=== PATIENT | male | born 1945 | race Caucasian/White ===

== ENCOUNTER 2021-05-07 10:24 | Emergency (ER) | payer MEDICARE, SELFPAY ==
[2021-05-07 10:32] VITALS: BP 134/63; PULSE 86; RESP 20; TEMP 36.8; O2SAT 100
--- NOTE | 2021-05-07 10:39 | ED.URI ---
HPI - URI/Sore Throat General Chief Complaint: Upper Respiratory Infection Stated Complaint: sore throat ccough weak Time Seen by Provider: 05/07/21 10:28 Source: patient and RN notes reviewed History of Present Illness HPI Narrative: Patient is a 75-year-old male who presents the urgent care with complaints of 5-day history of dry cough, sinus pressure and nasal drainage. Patient states that he has chronic sinusitis. Patient denies of any history of sinus surgery. Denies of any exposure to Covid, influenza or strep. Denies of any fevers. States that he has been taking high blood pressure cold and flu medication [id number]. No other acute complaints. No acute distress noted. Patient aware of the plan of care. Some parts of this dictation were generated by voice recognition software and may contain typographical and/or grammatical inaccuracies. Related Data Home Medications Medication Instructions Recorded Confirmed albuterol sulfate 2 puff INHALATION QID PRN 08/29/19 05/07/21 amlodipine 5 mg PO DAILY 08/29/19 05/07/21 bupropion HCl 75 mg PO BID 08/29/19 05/07/21 cholecalciferol (vitamin D3) 2,000 unit PO DAILY 08/29/19 05/07/21 [Vitamin D3] clonazepam 1 mg PO DAILY 08/29/19 05/07/21 cyanocobalamin (vitamin B-12) 1,000 mcg PO DAILY 08/29/19 05/07/21 [Vitamin B-12] docusate sodium [Stool Softener] 250 mg PO HS 08/29/19 05/07/21 finasteride 5 mg PO DAILY 08/29/19 05/07/21 glucosamine-chondroitin [Osteo 2 tablet PO TID 08/29/19 05/07/21 Bi-Flex] multivitamin,[id number] 1 tablet PO DAILY 08/29/19 05/07/21 [Complete Multivitamin] ranolazine 1,000 mg PO Q12H 08/29/19 05/07/21 terazosin 10 mg PO DAILY 08/29/19 05/07/21 Allergies Allergy/AdvReac Type Severity Reaction Status Date / Time No Known Allergies Allergy Verified 05/07/21 10:40 Review of Systems Review of Systems: Narrative: CONSTITUTIONAL: Denies fever, chills, or sweats. EYES: Denies visual changes, redness, or discharge. ENT: Reports of sinus pressure, rhinorrhea, postnasal drainage and mild sore throat CARDIOVASCULAR: Denies chest pain, palpitations, or edema. RESPIRATORY: Reports of dry cough without dyspnea GASTROINTESTINAL: Denies abdominal pain, nausea, vomiting, or diarrhea. GENITOURINARY: Denies dysuria or hematuria. SKIN: Denies rash or itching. MUSCULOSKELETAL: Denies back pain, joint pain, or myalgia. NEUROLOGIC: Denies headache, numbness, or weakness. All other systems reviewed are negative, except as documented in HPI. [facility] Past Medical History Medical History (Updated 05/07/21 @ 11:00 by SHARIFA Tim) Anxiety BPH (benign prostatic hyperplasia) Depression Hypertension Restless leg syndrome Surgical History Surgical History (Updated 08/29/19 @ 09:31 by Destiney Up, SHARIFA, ) H/O lateral meniscus repair of left knee H/O lateral meniscus repair of right knee History of appendectomy Comments At the time of my signature, I reviewed and agree with the nursing past medical, surgical, social, and family history. There is no relevant family history pertinent to the patient complaint. Exam Narrative: Exam Narrative: GENERAL: This is a well-nourished, well-developed patient, in no apparent distress. HEAD: normocephalic, atraumatic. Mild frontal sinus pressure/tenderness EYES: PERRL. Sclera clear/white. Vision is grossly intact. EARS: External ears normal, auditory canals clear and without drainage, TMs normal without perforation. Hearing grossly intact. NOSE: External nose normal with no obvious nasal discharge, nares without redness, no rhinorrhea. THROAT: Mucous membranes moist, posterior pharynx clear. Mild postnasal drainage NECK: Neck supple, non-tender without lymphadenopathy CARDIOVASCULAR: Regular rate and rhythm without murmurs, gallops, or rubs. RESPIRATORY: Clear to auscultation. Breath sounds equal bilaterally. No wheezes, rales, or rhonchi. SKIN: warm, intact with no suspicious lesions or
[2021-05-07 10:41] VITALS: BP 134/63; PULSE 86; RESP 20; TEMP 36.8; O2SAT 100
== END 2021-05-07 11:04 | disposition home or self-care (01) ==
PROVIDERS: Emergency Provider Nurse Practitioner Family; PCP Internal Medicine
DX: J32.9 Chronic sinusitis, unspecified (principal); F41.9 Anxiety disorder, unspecified; N40.0 Benign prostatic hyperplasia without lower urinary tract symptoms; F32.9 Major depressive disorder, single episode, unspecified; I10 Essential (primary) hypertension; G25.81 Restless legs syndrome
CPT/HCPCS: 87081; 87880; 99213; G0463

== ENCOUNTER 2022-01-16 11:59 | Emergency (ER) | payer MEDICARE, SELFPAY ==
[2022-01-16 12:04] VITALS: BP 142/66; PULSE 83; RESP 18; TEMP 36.9; O2SAT 100
--- NOTE | 2022-01-16 12:04 | ED.URI ---
HPI - URI/Sore Throat General Chief Complaint: Upper Respiratory Infection Stated Complaint: sinus drainage cough Time Seen by Provider: 01/16/22 12:04 Source: patient and RN notes reviewed History of Present Illness HPI Narrative: Patient is a 76-year-old male who presents the urgent care with complaints of sinus drainage and cough. Patient states is been ongoing since Tuesday and he has been using Coricidin HP B. Patient states he is on a low-dose 3 mg steroid daily. Patient does have history of pneumonia and bronchitis. Denies of any shortness of breath or chest pain. Denies of any fever, nausea or vomiting. Denies of any ill contacts. No other acute complaints. No acute distress noted. Patient read the plan of care. Some parts of this dictation were generated by voice recognition software and may contain typographical and/or grammatical inaccuracies. Related Data Home Medications Medication Instructions Recorded Confirmed albuterol sulfate 2 puff INHALATION QID PRN 08/29/19 01/16/22 amlodipine 5 mg PO DAILY 08/29/19 01/16/22 bupropion HCl 75 mg PO BID 08/29/19 01/16/22 cholecalciferol (vitamin D3) 2,000 unit PO DAILY 08/29/19 01/16/22 [Vitamin D3] clonazepam 0.5 mg PO DAILY 08/29/19 01/16/22 cyanocobalamin (vitamin B-12) 1,000 mcg PO DAILY 08/29/19 01/16/22 [Vitamin B-12] docusate sodium [Stool Softener] 250 mg PO HS 08/29/19 01/16/22 finasteride 5 mg PO DAILY 08/29/19 01/16/22 ranolazine 1,000 mg PO DAILY 08/29/19 01/16/22 terazosin 10 mg PO DAILY 08/29/19 01/16/22 prednisone 2 mg PO DAILY 01/16/22 01/16/22 Allergies Allergy/AdvReac Type Severity Reaction Status Date / Time No Known Allergies Allergy Verified 01/16/22 12:21 Review of Systems Review of Systems: CONSTITUTIONAL: Denies fever, chills, or sweats. EYES: Denies visual changes, redness, or discharge. ENT: Reports of postnasal drainage and sinus congestion CARDIOVASCULAR: Denies chest pain, palpitations, or edema. RESPIRATORY: Reports of cough without wheezing or dyspnea GASTROINTESTINAL: Denies abdominal pain, nausea, vomiting, or diarrhea. GENITOURINARY: Denies dysuria or hematuria. SKIN: Denies rash or itching. MUSCULOSKELETAL: Denies back pain, joint pain, or myalgia. NEUROLOGIC: Denies headache, numbness, or weakness. All other systems reviewed are negative, except as documented in HPI. [facility] Past Medical History Medical History (Updated 05/08/21 @ 00:00 by Yohan Espitia) Anxiety BPH (benign prostatic hyperplasia) Depression Hypertension Restless leg syndrome Surgical History Surgical History (Updated 08/29/19 @ 09:31 by Destiney Up, [facility], ) H/O lateral meniscus repair of left knee H/O lateral meniscus repair of right knee History of appendectomy Comments At the time of my signature, I reviewed and agree with the nursing past medical, surgical, social, and family history. There is no relevant family history pertinent to the patient complaint. Exam Narrative: GENERAL: This is a well-nourished, well-developed patient, in no apparent distress. HEAD: normocephalic, atraumatic. EYES: PERRL. Sclera clear/white. Vision is grossly intact. EARS: External ears normal, auditory canals clear and without drainage, cerumen noted bilaterally without impaction. TMs normal without perforation. Hearing grossly intact. NOSE: External nose normal with no obvious nasal discharge, nares without redness, no rhinorrhea. THROAT: Mucous membranes moist, posterior pharynx clear. Moderate postnasal drainage NECK: Neck supple, non-tender without lymphadenopathy CARDIOVASCULAR: Regular rate and rhythm RESPIRATORY: Clear to auscultation. Breath sounds equal bilaterally. No wheezes, rales, or rhonchi. SKIN: warm, intact with no suspicious lesions or rash, good texture and turgor. NEURO: awake, alert, and oriented to person, place and time. There were no obvious focal neurologic abnormalities. EXTREMITIES: No clubbing, cyanosis, or edema.
== END 2022-01-16 12:30 | disposition home or self-care (01) ==
PROVIDERS: Emergency Provider Nurse Practitioner Family; PCP Internal Medicine
DX: J32.9 Chronic sinusitis, unspecified (principal); N40.0 Benign prostatic hyperplasia without lower urinary tract symptoms; I10 Essential (primary) hypertension; G25.81 Restless legs syndrome; F41.9 Anxiety disorder, unspecified
CPT/HCPCS: 99213; G0463

== ENCOUNTER 2022-04-26 10:54 | Emergency (ER) | payer MEDICARE, SELFPAY ==
--- NOTE | 2022-04-26 10:57 | ED.URI ---
HPI - URI/Sore Throat General Chief Complaint: Upper Respiratory Infection Stated Complaint: sinus infection Time Seen by Provider: 04/26/22 10:57 Source: patient and RN notes reviewed History of Present Illness HPI Narrative: Patient is a 76-year-old male who presents the urgent care with complaints of sinus pressure, drainage, sneezing and slight nonproductive cough. Patient states that he is having a lung biopsy on Tuesday and wants to make sure that he is not ill. States that on Tuesday he sat out at his [employer] game and was affected by all the dust. Patient has been taking Flonase and had one 15 mg prednisone. Denies any fevers. Denies any contact with illness. Patient does have a COVID test scheduled. No other acute complaints. No acute distress noted. Patient aware of the plan of care. Some parts of this dictation were generated by voice recognition software and may contain typographical and/or grammatical inaccuracies. Related Data Home Medications Medication Instructions Recorded Confirmed albuterol sulfate 90 mcg/actuation 2 puff inhalation QID PRN 08/29/19 01/16/22 aerosol inhaler Shortness Of Breath Or Wheezing amlodipine 5 mg tablet 5 mg PO DAILY 08/29/19 04/26/22 bupropion HCl 75 mg tablet 75 mg PO BID 08/29/19 01/16/22 cholecalciferol (vitamin D3) 50 2,000 unit PO DAILY 08/29/19 01/16/22 mcg (2,000 unit) tablet (Vitamin D3) clonazepam 1 mg tablet 0.5 mg PO DAILY 08/29/19 01/16/22 cyanocobalamin (vitamin B-12) 1,000 mcg PO DAILY 08/29/19 01/16/22 1,000 mcg tablet (Vitamin B-12) docusate sodium 250 mg capsule 250 mg PO HS 08/29/19 01/16/22 (Stool Softener) finasteride 5 mg tablet 5 mg PO DAILY 08/29/19 04/26/22 ranolazine 1,000 mg 1,000 mg PO DAILY 08/29/19 01/16/22 tablet,extended release,12 hr terazosin 10 mg capsule 10 mg PO DAILY 08/29/19 04/26/22 prednisone 2 mg tablet,delayed 2 mg PO DAILY 01/16/22 01/16/22 release Allergies Allergy/AdvReac Type Severity Reaction Status Date / Time No Known Allergies Allergy Verified 01/16/22 12:21 Review of Systems Review of Systems: CONSTITUTIONAL: Denies fever, chills, or sweats. EYES: Denies visual changes, redness, or discharge. ENT: Reports of congestion, postnasal drainage, runny nose, sneezing and sinus pressure CARDIOVASCULAR: Denies chest pain, palpitations, or edema. RESPIRATORY: Denies cough or dyspnea. GASTROINTESTINAL: Denies abdominal pain, nausea, vomiting, or diarrhea. GENITOURINARY: Denies dysuria or hematuria. SKIN: Denies rash or itching. MUSCULOSKELETAL: Denies back pain, joint pain, or myalgia. NEUROLOGIC: Denies headache, numbness, or weakness. All other systems reviewed are negative, except as documented in HPI. [facility] Past Medical History Medical History (Updated 04/26/22 @ 11:17 by Destiney Porras, [facility]) Anxiety BPH (benign prostatic hyperplasia) Depression Hypertension Restless leg syndrome Surgical History Surgical History (Updated 08/29/19 @ 09:31 by Destiney Up, [facility], ) H/O lateral meniscus repair of left knee H/O lateral meniscus repair of right knee History of appendectomy Comments At the time of my signature, I reviewed and agree with the nursing past medical, surgical, social, and family history. There is no relevant family history pertinent to the patient complaint. Exam Narrative: GENERAL: This is a well-nourished, well-developed patient, in no apparent distress. HEAD: normocephalic, atraumatic. Frontal sinus tenderness EYES: PERRL. Sclera clear/white. Vision is grossly intact. EARS: External ears normal, auditory canals clear and without drainage, TMs normal without perforation. Hearing grossly intact. NOSE: External nose normal with no obvious nasal discharge, mild bilateral erythemic nares with clear to yellow rhinorrhea THROAT: Mucous membranes moist, posterior pharynx clear. Moderate postnasal drainage NECK: Neck supple, non-tender without lymphadenopathy, masses or
[2022-04-26 10:58] VITALS: BP 130/79; PULSE 81; RESP 20; TEMP 36.7; O2SAT 100
== END 2022-04-26 11:18 | disposition home or self-care (01) ==
PROVIDERS: Emergency Provider Nurse Practitioner Family; PCP Internal Medicine
DX: J32.9 Chronic sinusitis, unspecified (principal); I10 Essential (primary) hypertension; N40.0 Benign prostatic hyperplasia without lower urinary tract symptoms; G25.81 Restless legs syndrome; F41.9 Anxiety disorder, unspecified
CPT/HCPCS: 99213; G0463

== ENCOUNTER 2022-12-01 15:12 | Outpatient (CLI) | payer MEDICARE, SELFPAY ==
--- NOTE | ~2022-12-01 | US_ITS ---
EXAMINATION: US scrotum doppler DATE: 12/01/2022 16:23 INDICATION: Epididymitis. TECHNIQUE: Grayscale and Doppler ultrasound images of the testes were obtained. COMPARISON: CT abdomen and pelvis 12/01/2022 FINDINGS: The right testis measures 3.8 x 1.9 x 2.3 cm. The left testis measures . There is a [address] at the periphery of right testis. There is normal vascular flow to both testes. The right epididym is is normal with normal vascular flow. The left epididymis demonstrate cysts measuring up to 4 mm. T here are small bilateral hydroceles. There is a left-sided varicocele. IMPRESSION: 1. Small bilateral hydroceles. 2. Left-sided varicocele. Reviewed, dictated and finalized at location A. C[facility] TRA[facility]ER
--- NOTE | ~2022-12-01 | CT_ITS ---
EXAMINATION: CT abdomen pelvis w con DATE: 12/01/2022 15:58 INDICATION: Groin swelling. Melanoma. TECHNIQUE: Computed tomography (CT) of the abdomen and pelvis was performed with 100 mL Omnipaque 350 intravenous contrast. Automated exposure control and iterative reconstruction technique were employe d. The dose-length product was 949.80 mGy-cm. COMPARISON: None. FINDINGS: The visualized portions of the lung bases demonstrate mild atelectasis. There is an 8 mm no dule in left lower lobe. There is a trace right pleural effusion. The heart size is normal. There are coronary artery calcifications. No pericardial effusion. There are multiple low-attenuation lesions in the liver measuring up to 5 mm that are too small to characterize, most likely cysts. There are mu ltiple low-attenuation lesions in the spleen measuring up to 15 mm. There is wall thickening of the f undus of the gallbladder, consistent with adenomyomatosis. The pancreas, adrenal glands, and left kid hannah are normal. There is a 9.9 cm cyst with thin septations in right kidney. The inferior vena cava i s duplicated. There is a left inguinal hernia containing fat. There is diverticulosis of the colon wi thout evidence of diverticulitis. The appendix is not visualized. There are no pathologically enlarge d lymph nodes. There is no free intraperitoneal fluid. There is severe lumbar spondylosis. There is m ild chronic anterior wedging of multiple vertebral bodies. IMPRESSION: 1. Left inguinal hernia containing fat. 2. 8 mm pulmonary nodule suspicious for metastatic disease or primary bronchogenic carcinoma. 3. Low-attenuation lesions in the spleen, most likely granulomatous disease. Metastatic disease canno t be excluded. Reviewed, dictated and finalized at location A. KEEPER IMPRESSION: 1. Left inguinal hernia containing fat. 2. 8 mm pulmonary nodule suspicious for metastatic disease or primary bronchoge asiya carcinoma. 3. Low-attenuation lesions in the spleen, most likely granulomatous disease. Me tastatic disease cannot be excluded.
[2022-12-01 15:49] LABS: Estimated Glomerular Filt Rate > 60
== END 2022-12-01 15:13 | disposition home or self-care (01) ==
PROVIDERS: PCP Internal Medicine; Visit Provider Urology
DX: R19.09 Other intra-abdominal and pelvic swelling, mass and lump (principal); N45.1 Epididymitis; N43.3 Hydrocele, unspecified; I86.1 Scrotal varices; K40.90 Unilateral inguinal hernia, without obstruction or gangrene, not specified as recurrent; R91.1 Solitary pulmonary nodule
CPT/HCPCS: 74177; 76870; 93976; Q9967

== ENCOUNTER 2023-01-18 10:52 | Emergency (ER) | payer MEDICARE, SELFPAY ==
[2023-01-18 11:04] VITALS: BP 126/63; PULSE 75; RESP 20; TEMP 36.7; O2SAT 100
--- NOTE | 2023-01-18 11:16 | ED.URI ---
HPI - URI/Sore Throat General Chief Complaint: Upper Respiratory Infection Stated Complaint: cold/flu Time Seen by Provider: 01/18/23 11:17 Source: patient, RN notes reviewed and old records reviewed Mode of arrival: ambulatory Limitations: no limitations History of Present Illness HPI Narrative: 77 year old male who presents to [facility] care with complaints of fatigue,nasal drainage, cough which is productive,' rattly chest' for the past 2 days with no fevers noted. Patient is presently on medications for TB and also rheumatoid arthritis and is immunosuppressed on daily prednisone. Patient does also have stage 4 melanoma. Patient reports that daughter had COVID 3 weeks ago, he states that he has had COVID vaccinations and boosters and flu shot this season. patient has taken some Mucinex for his symptoms. MD elicited complaint: cough and sore throat Pertinent past history: immunosuppression Onset (ago): day(s) (2) Treatments prior to arrival: other (Mucinex) Related Data Home Medications Medication Instructions Recorded Confirmed amlodipine 5 mg tablet 5 mg PO DIRECTED 01/18/23 01/18/23 bupropion HCl 75 mg tablet 75 mg PO DIRECTED 01/18/23 01/18/23 clonazepam 0.5 mg tablet 0.5 mg PO DIRECTED 01/18/23 01/18/23 folic acid 1 mg tablet 1 mg PO DIRECTED 01/18/23 01/18/23 hydroxychloroquine 200 mg tablet 200 mg PO DIRECTED 01/18/23 01/18/23 isoniazid 300 mg tablet 300 mg PO DIRECTED 01/18/23 01/18/23 prednisone 5 mg tablet 5 mg PO DIRECTED 01/18/23 01/18/23 valacyclovir 500 mg tablet 500 mg PO DIRECTED 01/18/23 01/18/23 Allergies Allergy/AdvReac Type Severity Reaction Status Date / Time No Known Allergies Allergy Verified 01/18/23 11:17 Review of Systems Review of Systems: CONSTITUTIONAL: Denies malaise, chills, sweats, or fever., reports fatigue EYES: Denies visual changes, redness, or discharge. ENT: Reports rhinorrhea, congestion, no sinus pain,no otalgia or sore throat. CARDIOVASCULAR: Denies chest pain, palpitations, or edema. RESPIRATORY: Reports cough.? Denies dyspnea.states cough productive GASTROINTESTINAL: Denies abdominal pain, nausea, vomiting, diarrhea SKIN: Denies rash or itching. MUSCULOSKELETAL: Denies myalgia. NEUROLOGIC: Denies headache. All systems reviewed & are unremarkable except as noted in HPI and below PMFSH Past Medical History Medical History (Updated 01/19/23 @ 10:41 by Mi Zambrano NP) Anxiety BPH (benign prostatic hyperplasia) Depression Hypertension Malignant melanoma, stage IV M1a Restless leg syndrome Rheumatoid arthritis Tuberculosis Surgical History Surgical History (Updated 01/19/23 @ 10:41 by Mi Zambrano NP) H/O lateral meniscus repair of left knee H/O lateral meniscus repair of right knee History of appendectomy History of lung biopsy Social History Social History (Updated 01/19/23 @ 10:43 by Mi Zambrano NP) Smoking packs per day: 1 Smoking cigarettes per day: 20.0 Years smoked: 20 Smoking pack-years: 20.00 Smoking status: Former smoker Additional smoking assessment comments: Quit over 30 years ago Alcohol intake: current Alcohol use details: rare social Substance use type: does not use Living arrangements: with family Gender identity (if verbalized by the patient): Male Comments At time of signature, agree with nursing past medical, surgical, social and family history. There is no relevant family history pertinent to the presenting complaint Exam Narrative: GENERAL: Well-appearing, well-nourished, and in no acute distress. HEAD: Normocephalic EYES: PERRLA, conjunctivae clear ENT: Nares clear, turbinates edematous and erythematous, clear discharge. Mucous membranes moist. TM pearly barrera with dull light reflex bilaterally; no tragal tenderness. Oropharynx erythematous without lesions. Tonsils not enlarged and without exudate, no drooling, no hoarseness, no trismus, uvula midline.so
== END 2023-01-18 12:07 | disposition home or self-care (01) ==
PROVIDERS: Emergency Provider Registered Nurse; PCP Internal Medicine
DX: J06.9 Acute upper respiratory infection, unspecified (principal); Z20.822 Contact with and (suspected) exposure to COVID-19; Z87.891 Personal history of nicotine dependence; N40.0 Benign prostatic hyperplasia without lower urinary tract symptoms; I10 Essential (primary) hypertension; G25.81 Restless legs syndrome; M06.9 Rheumatoid arthritis, unspecified; F41.9 Anxiety disorder, unspecified; F32.A Depression, unspecified; C43.9 Malignant melanoma of skin, unspecified
CPT/HCPCS: 87426; 99213; C9803; G0463

== ENCOUNTER 2023-10-03 09:55 | Emergency (ER) | payer MEDICARE, SELFPAY ==
[2023-10-03 10:18] VITALS: BP 148/63; PULSE 73; RESP 16; TEMP 37.2; O2SAT 99
--- NOTE | 2023-10-03 10:45 | ED.GENADULT ---
HPI - General Adult General Chief complaint: Upper Respiratory Infection Stated complaint: Sinus Infection Source: patient, RN notes reviewed and old records reviewed Mode of arrival: ambulatory Limitations: no limitations History of Present Illness HPI narrative: 77-year-old male patient presents to [facility] Care with complaint of sinus congestion, sinus pain, productive cough that started 2 weeks ago. Patient taking [id number] medications with no relief. Patient states phlegm is brown/green color. Patient denies chest pain, weakness, dizziness, vomiting, shortness of breath. MD complaint: cough,congestion Onset (ago): week(s) (2) Related Data Home Medications Medication Instructions Recorded Confirmed amlodipine 5 mg tablet 5 mg PO DIRECTED 01/18/23 01/18/23 bupropion HCl 75 mg tablet 75 mg PO DIRECTED 01/18/23 01/18/23 clonazepam 0.5 mg tablet 0.5 mg PO DIRECTED 01/18/23 01/18/23 folic acid 1 mg tablet 1 mg PO DIRECTED 01/18/23 01/18/23 hydroxychloroquine 200 mg tablet 200 mg PO DIRECTED 01/18/23 01/18/23 isoniazid 300 mg tablet 300 mg PO DIRECTED 01/18/23 01/18/23 prednisone 5 mg tablet 4 mg PO DIRECTED 01/18/23 01/18/23 valacyclovir 500 mg tablet 500 mg PO DIRECTED 01/18/23 01/18/23 finasteride 5 mg tablet mg 10/03/23 methotrexate sodium 2.5 mg tablet mg 10/03/23 pramipexole 0.125 mg tablet mg 10/03/23 pyridoxine (vitamin B6) 50 mg mg 10/03/23 tablet ranolazine 1,000 mg mg PO 10/03/23 tablet,extended release,12 hr terazosin 10 mg capsule mg 10/03/23 Allergies Allergy/AdvReac Type Severity Reaction Status Date / Time No Known Allergies Allergy Verified 10/03/23 10:15 Review of Systems Constitutional: Constitutional: Reports no additional constitutional complaints, Denies body ache(s), Denies chills, Denies fatigue, Denies fever(s) and Denies headache(s) Eyes: Eyes: Reports no additional eye complaints and Denies blurry vision ENT: Denies vertigo, Denies dizziness, Denies ear discharge, Denies otalgia, Denies facial pain, Reports headache(s), Reports nasal congestion, Reports nasal discharge, Reports sinus pain, Reports sinus pressure and Denies sore throat Cardiovascular: Cardiovascular: Reports no additional cardiovascular complaints, Denies chest pain, Denies chest pain at rest, Denies rapid heart rate and Denies dyspnea Respiratory: Respiratory: Reports as per HPI, Reports chest congestion, Reports cough, Denies pain on inspiration, Denies pain with cough and Denies dyspnea Gastrointestinal: Gastrointestinal: Denies abdominal pain, Denies diarrhea, Denies nausea and Denies vomiting Integumentary/Breasts: Skin/Breast: Denies rash Neurologic: Reports system reviewed and no additional complaints, except as documented, Denies vertigo, Denies dizziness and Denies headache(s) Endocrine: Endocrine: Denies fatigue PMFSH Past Medical History Medical History Anxiety BPH (benign prostatic hyperplasia) Depression Hypertension Malignant melanoma, stage IV M1a Restless leg syndrome Rheumatoid arthritis Tuberculosis Surgical History Surgical History H/O lateral meniscus repair of left knee H/O lateral meniscus repair of right knee History of appendectomy History of lung biopsy Social History Social History Smoking packs per day: 1 Smoking cigarettes per day: 20.0 Years smoked: 20 Smoking pack-years: 20.00 Smoking status: Former smoker Additional smoking assessment comments: Quit over 30 years ago Alcohol intake: current Alcohol use details: rare social Substance use type: does not use Living arrangements: with family Gender identity (if verbalized by the patient): Male Comments At the time of my signature, I reviewed and agree with the nursing past medical, surgical, social, an
== END 2023-10-03 10:50 | disposition home or self-care (01) ==
PROVIDERS: Emergency Provider Registered Nurse; PCP Internal Medicine
DX: J32.9 Chronic sinusitis, unspecified (principal); I10 Essential (primary) hypertension; Z87.891 Personal history of nicotine dependence
CPT/HCPCS: 99213; G0463

== ENCOUNTER 2024-03-16 12:09 | Outpatient (CLI) | payer MEDICARE, SELFPAY ==
--- NOTE | 2024-03-16 12:35 | ECG_ITS ---
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 Measurements Intervals [place] Rate: 74 P: 62 TX: 237 QRS: -14 QRSD: 129 T: 44 QT: 416 QTc: 464 Interpretive Statements SINUS RHYTHM WITH FIRST DEGREE AV BLOCK INTRAVENTRICULAR CONDUCTION DELAY LEFT VENTRICULAR HYPERTROPHY POOR R WAVE PROGRESSION BASELINE ARTIFACT- I, II, III, AVR, AVL, AVF, V1-V6 ABNORMAL ECG No previous ECG available for comparison Electronically Signed On 03-16-2024 14:46:48 CDT by Phong Ortega D.O.
== END 2024-03-16 12:10 | disposition home or self-care (01) ==
LOC: ANHSURGERY 12:14
PROVIDERS: PCP Internal Medicine; Visit Provider Urology
DX: Z01.818 Encounter for other preprocedural examination (principal); I10 Essential (primary) hypertension; R94.31 Abnormal electrocardiogram [ECG] [EKG]
CPT/HCPCS: 93005

== ENCOUNTER 2024-03-22 00:30 | Day surgery (SDC) | payer MEDICARE, SELFPAY ==
[2024-03-13 12:19] VITALS: BMI 28.1
--- NOTE | 2024-03-13 12:50 | PC.NURSE ---
Report to the Outpatient Waiting Room, entrance under the green pavilion located off [facility], at time __10:00am on date ___03/22/24____. Planned Procedure Time: __12:00pm . Time changes happen often and if your time is changed the preop area will call you the afternoon before. - You and your visitor will be asked to self-screen and do not enter if you have any COVID symptoms. - A mask is optional within the hospital at this time. Patients may have clear liquids (water, carbonated beverages, clear teas, apple juice) until 3 hours prior to surgery with a maximum of 20 ounces. - No food from midnight until time of surgery. Take the following medications with a SIP of water the morning of surgery: __AMLODIPINE, BUPROPION, PREDNISONE, RANOLAZINE DO NOT STOP ANY OF YOUR OTHER PRESCRIPTION MEDICATIONS PRIOR TO SURGERY ?EXCEPT THE FOLLOWING Medications to discontinue per physician ____HOLD ALL VITAMINS/SUPPLEMENTS 3 DAYS PRE-OP PER ANESTHESIA Date to take last dose____03/18/24 Please no make-up, nail mauritian, hairspray, perfume, deodorant, or body powder the day of surgery. No jewelry (including any body piercings) or valuables the day of surgery, leave them at home. Please take a shower or bath the night before, or the morning of, surgery with an antibacterial soap. Wear comfortable, loose fitting clothing. - Jewelry must be removed prior to entering the operating room. Rings and piercings that are not removed may be cut off. - The hospital will not accept responsibility for valuables. - Please leave all valuables, including medications, at home the day of surgery. If you are going home after surgery, a licensed pile driver must drive you home. - NO public transportation without another adult if you receive anesthesia. - We recommend that an adult stay with you for 24 hours following discharge. - We also recommend that you do not drive, make important decision, drink alcoholic beverages, or take any drugs that were not prescribed by your health care provider for at least 24 hours after your discharge time. Follow any additional instructions given to you from your surgeon. If you or anyone in your household have experienced Covid symptoms in the past week, please notify your surgeon or the nurse liaison at the phone number below for possible testing. Telephone instructions given to PATIENT & WIFE and asked if any additional questions and then verbalized understanding. Patient advised to call surgeon office or pre surgery nurse liaison [phone] if any additional questions.
--- NOTE | 2024-03-19 07:52 | PM.IMHP ---
H&P: HPI History of Present Illness Date/Time: 03/19/24 07:52 Chief Complaint: Prostate enlargement Narrative: 78-year-old gentleman who is a longstanding patient of ours with bladder outlet obstructive voiding symptoms dating back 15-20 years. After initial response to therapy for BPH he has now become somewhat refractory to both tamsulosin and finasteride and combination. He is contemplated minimally invasive procedure such as Urolift and laser ablation but elects, instead for a TURP. He is aware the risks including, but not limited to, adverse cardiopulmonary events, hematuria, need for additional procedures. Review of Systems Cardiovascular: Cardiovascular: Denies chest pain, Denies lightheadedness, Denies palpitations and Denies dyspnea Respiratory: Respiratory: Denies dyspnea Gastrointestinal: Gastrointestinal: Denies diarrhea, Denies nausea and Denies vomiting Genitourinary: Genitourinary: Denies hematuria and Denies dysuria Endocrine: Endocrine: Denies palpitations PMFSH Past Medical History Medical History Anxiety BPH (benign prostatic hyperplasia) Depression Hypertension Malignant melanoma, stage IV M1a Restless leg syndrome Rheumatoid arthritis Tuberculosis Surgical History Surgical History H/O lateral meniscus repair of left knee H/O lateral meniscus repair of right knee History of appendectomy History of lung biopsy Social History Social History Smoking packs per day: 1.5 Smoking cigarettes per day: 30.0 Years smoked: 24 Smoking pack-years: 36.00 Smoking status: Former smoker Tobacco type: cigarettes Smoking end date: 04/16/88 Additional smoking assessment comments: Quit over 30 years ago Alcohol intake: current Drinks per week: 3 Alcohol use details: rare social Substance use type: does not use Living arrangements: with family Additional living arrangements comments: Gender identity (if verbalized by the patient): Male Spiritual care concerns: No Meds Home Medications and Allergies Home Medications Medication Instructions Recorded Confirmed Type amlodipine 5 mg tablet 5 mg PO QAM 01/18/23 03/13/24 History bupropion HCl 75 mg tablet 75 mg PO BID 01/18/23 03/13/24 History clonazepam 0.5 mg tablet 0.5 mg PO HS 01/18/23 03/13/24 History folic acid 1 mg tablet 1 mg PO DIRECTED 01/18/23 03/13/24 History hydroxychloroquine 200 mg tablet 200 mg PO DIRECTED 01/18/23 03/13/24 History finasteride 5 mg tablet 5 mg PO QAM 10/03/23 03/13/24 History methotrexate sodium 2.5 mg tablet 20 mg PO WEEKLY 10/03/23 03/13/24 History ranolazine 1,000 mg 1,000 mg PO QAM 10/03/23 03/13/24 History tablet,extended release,12 hr terazosin 10 mg capsule 10 mg PO HS 10/03/23 03/13/24 History acetaminophen 500 mg capsule 1,000 mg PO QID PRN Pain 03/13/24 03/13/24 History calcium carbonate 600 mg-vitamin 1 tablet PO DAILY 03/13/24 03/13/24 History D3 5 mcg (200 unit) tablet cetirizine 10 mg capsule (Zyrtec) 10 mg PO DAILY 03/13/24 03/13/24 History cholecalciferol (vitamin D3) 25 25 mcg PO DAILY 03/13/24 03/13/24 History mcg (1,000 unit) tablet ibuprofen 200 mg capsule 400 mg PO Q6H PRN Pain 03/13/24 03/13/24 History multivitamin 1 tablet PO DAILY 03/13/24 03/13/24 History pramipexole 0.25 mg tablet 0.25 mg PO HS 03/13/24 03/13/24 History prednisone 1 mg tablet 4 mg PO DAILY 03/13/24 03/13/24 History Allergies Allergy/AdvReac Type Severity Reaction Status Date / Time No Known Allergies Allergy Verified 03/13/24 09:08 Exam Const: General: no acute distress Resp: Effort & Inspection: normal respiratory effort GI: Inspection: non-distended GI Palp: No abdominal tenderness and No Guarding due to palpation present (GI) Auscultation: normal bowel sounds Assessment and Plan Assessment
[2024-03-22] VITALS (13 sets, daily range): BP systolic 144–178; BP diastolic 66–81; PULSE 60–81; RESP 12–20; TEMP 36–37.1; O2SAT 98–100; BMI 26.6
--- NOTE | 2024-03-22 06:11 | WPDHPUPDATE1 ---
History and Physical Update Update Date/Time: 03/22/24 06:11 History and Physical has been reviewed, including an updated exam of the patient. There are NO changes in the patient's condition. Risks, benefits, and alternatives have been discussed and questions answered. Patient agrees to proceed with procedure.
--- NOTE | 2024-03-22 10:05 | WPDANESEPPF ---
Anes - Initial Pre Proc Eval Procedure: Operation Date: 03/22/24 11:00 Proposed Procedures p Trans Urethral Resection Prostate - Timmy Sheldon MD Date/Time: 03/22/24 10:05 Surgeon: Timmy Sheldon MD Pre Op Diagnosis: BPH Patient Data Age: 78 Gender: M Height: 1.93 m Weight: 99.2 kg Last Vital Signs Temp 36.7 C 03/22/24 09:44 Pulse 71 03/22/24 09:44 Resp 16 03/22/24 09:44 BP 164/73 H 03/22/24 09:44 Pulse Ox 99 03/22/24 09:44 Allergies Allergy/AdvReac Type Severity Reaction Status Date / Time No Known Allergies Allergy Verified 03/22/24 09:36 Home Medications Medication Instructions Recorded Confirmed Type amlodipine 5 mg tablet 5 mg PO QAM 01/18/23 03/13/24 History bupropion HCl 75 mg tablet 75 mg PO BID 01/18/23 03/13/24 History clonazepam 0.5 mg tablet 0.5 mg PO HS 01/18/23 03/13/24 History folic acid 1 mg tablet 1 mg PO DIRECTED 01/18/23 03/13/24 History hydroxychloroquine 200 mg tablet 200 mg PO DIRECTED 01/18/23 03/13/24 History finasteride 5 mg tablet 5 mg PO QAM 10/03/23 03/13/24 History methotrexate sodium 2.5 mg tablet 20 mg PO WEEKLY 10/03/23 03/13/24 History ranolazine 1,000 mg 1,000 mg PO QAM 10/03/23 03/13/24 History tablet,extended release,12 hr terazosin 10 mg capsule 10 mg PO HS 10/03/23 03/13/24 History acetaminophen 500 mg capsule 1,000 mg PO QID PRN Pain 03/13/24 03/13/24 History calcium carbonate 600 mg-vitamin 1 tablet PO DAILY 03/13/24 03/13/24 History D3 5 mcg (200 unit) tablet cetirizine 10 mg capsule (Zyrtec) 10 mg PO DAILY 03/13/24 03/13/24 History cholecalciferol (vitamin D3) 25 25 mcg PO DAILY 03/13/24 03/13/24 History mcg (1,000 unit) tablet ibuprofen 200 mg capsule 400 mg PO Q6H PRN Pain 03/13/24 03/13/24 History multivitamin 1 tablet PO DAILY 03/13/24 03/22/24 History pramipexole 0.25 mg tablet 0.25 mg PO HS 03/13/24 03/13/24 History prednisone 1 mg tablet 4 mg PO DAILY 03/13/24 03/13/24 History Patient hx anesthesia problems: none Family hx anesthesia problems: none Results Review: All pre-operative results and documents have been reviewed as part of the pre-operative evaluation. [facility] Past Medical History Medical History Anxiety BPH (benign prostatic hyperplasia) Depression Hypertension Malignant melanoma, stage IV M1a Restless leg syndrome Rheumatoid arthritis Tuberculosis Surgical History Surgical History H/O lateral meniscus repair of left knee H/O lateral meniscus repair of right knee History of appendectomy History of lung biopsy Social History Social History Smoking packs per day: 1.5 Smoking cigarettes per day: 30.0 Years smoked: 24 Smoking pack-years: 36.00 Smoking status: Former smoker Tobacco type: cigarettes Smoking end date: 04/16/88 Additional smoking assessment comments: Quit over 30 years ago Alcohol intake: current Drinks per week: 3 Alcohol use details: rare social Substance use type: does not use Living arrangements: with family Additional living arrangements comments: Gender identity (if verbalized by the patient): Male Spiritual care concerns: No Anes - Eval Final PreProcedure Day of Procedure 03/22/24 10:05 Patient weight: overweight Heart: regular rate and rhythm Lungs: clear to auscultation Airway: Mallampati scale class II Neurological: alert and oriented Last oral intake: >/= 8 hours ASA classification: III Emergent: no Anesthetic plan: proceed Anesthesia type and monitoring: general LMA and standard monitoring Results Review: All pre-operative results and documents have been reviewed as part of the pre-operative evaluation. Informed Consent: The patient's anesthetic plan and its attendant risks and benefits were discussed with the patient/family/POA. Questions were solici
[2024-03-22] MEDS: LACTATED RINGERS 1,000 ML 30 ML IV CONT ×2 (10:26→11:28)
[2024-03-22] MEDS: ceFAZolin 2 GM/D5W 50 ML 2 GM/50 ML BAG IVPB (10:29)
--- NOTE | 2024-03-22 11:26 | W.PM.PROC2 ---
Procedure Note - Detailed Date of Procedure 03/22/24 Pre-op Diagnosis BPH Post-op Diagnosis Same Procedure Performed TURP Surgeon Timmy Sheldon MD Anesthesia General Description of Procedure The patient was brought to the operative suite where he is prepped and draped in routine sterile fashion while in the dorsal lithotomy position after the uneventful induction of a general LMA anesthetic. A 27 [place] resectoscope sheath was placed into his bladder. He had no urethral strictures. The patient had trilobar hyperplasia with a small median lobe. The bladder itself was endoscopically normal, showing no mucosal hyperemia, intravesical neoplasm or foreign bodies. There was a single, orthotopic ureteral orifice bilaterally. These orifices were identified and preserved throughout the remainder of the procedure. Attention was first turned to resection of the median lobe. This resection was undertaken from the bladder neck to the verumontanum and carried out until the transverse fibers of the bladder neck were identified. The left lateral lobe was then resected starting at the 6 o'clock position, working counter clockwise to the 12 o'clock position. Again, resection was carried out from the bladder neck to the verumontanum until the capsular fibers of the prostate were identified. The right lateral lobe was resected in a similar fashion starting at the 6 o'clock position working clockwise to the 12 o'clock position and carried out until the capsular fibers of the prostate were identified. Apical tissue was then circumferentially resected. All chips were evacuated from the bladder using an [employer] evacuator. Hemostasis was obtained with electric cautery. The ureteral orifices were again inspected and found to be without injury. Estimated blood loss throughout this procedure was 50cc. The patient was taken to recovery room having tolerated this well. Drains Yes Packing No Pathology Yes Complications No immediate complications
[2024-03-22] MEDS: fentaNYL CITRATE INJ (*CRX) 100 MCG/2 ML VIAL 25 MCG IV PUSH ×2 (12:03→12:28)
--- NOTE | 2024-03-22 12:45 | ADMGEN ---
This patient, Nicolas Dye, was admitted to [facility] Surg Room 311-01. Patient/family oriented to hospital policies and general routines including ID bracelet, bed and alarms, visiting hours, pain management, procedures, bathroom and other care routines, personal items, smoking policy, room service/diet, and visiting hours. Information on how to activate the Rapid Response Team has been discussed. Patient/Family are encouraged to report perceived risks to care and to ask questions if they do not understand what they are told or what they should do.
[2024-03-22] MEDS: FOLIC ACID 1 MG TABLET PO (16:05)
[2024-03-22] MEDS: HYDROXYCHLOROQUINE SULFATE 200 MG TABLET PO ×2 (16:05→22:35)
[2024-03-22] MEDS: DOCUSATE SODIUM 100 MG CAPSULE PO (16:05)
[2024-03-22] MEDS: buPROPion HCL 75 MG TABLET PO (16:05)
[2024-03-22] MEDS: ceFAZolin 1 GM/NS 50 ML 1 GM/50 ML BAG IVPB (17:01)
[2024-03-22] MEDS: HYOSCYAMINE SULFATE 0.125 MG TABLET SUBLINGUAL (17:12)
[2024-03-22] MEDS: TRIAMCINOLONE ACET 0.1% OINT 15 GM TUBE 1 APPLIC TOPICAL (17:39)
[2024-03-22] MEDS: clonazePAM (*CRX) 0.5 MG TABLET PO (20:47)
[2024-03-22] MEDS: PRAMIPEXOLE 0.25 MG TABLET PO (20:47)
[2024-03-22] MEDS: TOLNAFTATE 1% POWDER 45 GM BTL 1 APPLIC TOPICAL (22:35)
[2024-03-22] MEDS: KETOROLAC 15 MG/ML VIAL (*BKC) IV PUSH (22:35)
[2024-03-23] VITALS: BP 178/84; PULSE 71; RESP 18; TEMP 36.6; O2SAT 97
[2024-03-23] MEDS: ceFAZolin 1 GM/NS 50 ML 1 GM/50 ML BAG IVPB (02:17)
[2024-03-23 04:00] VITALS: BP 183/74; PULSE 70; RESP 18; TEMP 36.7; O2SAT 99
[2024-03-23 05:58] LABS: Hemoglobin 13.4 g/dL (14.0-18.0)
[2024-03-23 06:03] LABS: Anion Gap 5 mmol/L (4-12); Blood Urea Nitrogen 13 mg/dL (9-20); Calcium 9.2 mg/dL (8.4-10.2); Carbon Dioxide 27 mmol/L (22-30); Chloride 106 mmol/L (98-107); Estimated CRCL calculation 75 ml/min; Estimated Glomerular Filt Rate > 60; Glucose 113 mg/dL (65-110); Potassium 4.4 mmol/L (3.4-5.0); Sodium 138 mmol/L (137-145)
--- NOTE | 2024-03-23 07:05 | WPDUROPN2 ---
Progress Note: A&P Assessment and Plan (1) BPH loc w urin obs/LUTS: Code(s): N40.1 - Benign prostatic hyperplasia with lower urinary tract symptoms Status: Acute Assessment and Plan: Patient doing well postop day 1 We will stop CBI and plan voiding trial this morning if urine remains clear off irrigation Subjective Subjective Date/Time Seen: 03/23/24 07:05 Interval history: Comfortable, tolerating diet, no complaints Review of Systems Cardiovascular: Cardiovascular: Denies chest pain, Denies lightheadedness, Denies palpitations and Denies dyspnea Respiratory: Respiratory: Denies dyspnea Gastrointestinal: Gastrointestinal: Denies diarrhea, Denies nausea and Denies vomiting Genitourinary: Genitourinary: Denies hematuria and Denies dysuria Endocrine: Endocrine: Denies palpitations Exam Const: General: no acute distress Resp: Effort & Inspection: normal respiratory effort GI: Inspection: non-distended GI Palp: No abdominal tenderness and No Guarding due to palpation present (GI) Auscultation: normal bowel sounds Urinary Catheter: Urinary Catheter: patent and draining and urine clear Objective Data Vital Signs Vital Signs: Vital Signs - 24 hr 03/22/24 09:44 03/22/24 11:28 03/22/24 11:40 Temperature 98.1 F 97.5 F L Pulse Rate 71 61 67 Respiratory Rate 16 12 20 Blood Pressure 164/73 H 144/81 H 156/71 H Pulse Oximetry 99 100 100 Oxygen Delivery Simple Face Mask Room Air Oxygen Flow Rate 8 03/22/24 11:55 03/22/24 12:10 03/22/24 12:25 Temperature Pulse Rate 60 66 60 Respiratory Rate 15 15 13 Blood Pressure 160/74 H 168/77 H 172/76 H Pulse Oximetry 100 100 100 Oxygen Delivery Room Air Room Air Room Air Oxygen Flow Rate 03/22/24 12:35 03/22/24 12:42 03/22/24 14:45 Temperature 97.3 F L Pulse Rate 64 65 Respiratory Rate 14 18 Blood Pressure 163/75 H 160/77 H Pulse Oximetry 99 100 Oxygen Delivery Room Air Room Air Oxygen Flow Rate 03/22/24 13:00 03/22/24 16:00 03/22/24 13:15 Temperature 96.9 F L 97.3 F L 96.8 F L Pulse Rate 62 81 63 Respiratory Rate 16 16 16 Blood Pressure 156/78 H 150/77 H 160/66 H Pulse Oximetry 99 98 100 Oxygen Delivery Oxygen Flow Rate 03/22/24 13:45 03/22/24 20:00 03/22/24 21:26 Temperature 98.7 F 97.2 F L Pulse Rate 61 81 Respiratory Rate 16 Blood Pressure 161/79 H 178/76 H Pulse Oximetry 99 99 Oxygen Delivery Room Air Oxygen Flow Rate 03/23/24 00:00 03/23/24 04:00 Temperature 97.9 F 98.1 F Pulse Rate 71 70 Respiratory Rate 18 18 Blood Pressure 178/84 H 183/74 H Pulse Oximetry 97 99 Oxygen Delivery Oxygen Flow Rate Intake/Output Intake/Output: Intake & Output 03/20/24 03/21/24 03/22/24 03/23/24 23:59 23:59 23:59 23:59 Intake Total 1740 850 Output Total 1600 2525 Balance 140 -1675 Meds/Results Medications: Active Medications Generic Name Dose Route Start Last Admin Trade Name Freq PRN Reason Stop Dose Admin Hydrocodone Bitart/Acetaminophen 1 tab 03/22/24 12:42 Hydrocodone/Acetaminophen (*Crx) 5-325 Mg Tablet PO Q4H PRN Pain Rated 1-6 Amlodipine Besylate 5 mg 03/23/24 09:00 Amlodipine Besylate 5 Mg Tablet PO QAM SANCHEZ Bupropion HCl 75 mg 03/22/24 17:00 03/22/24 16:05 Bupropion Hcl 75 Mg Tablet PO 75 mg BID SANCHEZ Administration Cephalexin HCl 500 mg 03/23/24 09:00 Cephalexin 500 Mg Capsule PO QID SANCHEZ Clonazepam 0.5 mg 03/22/24 21:00 03/22/24 20:47 Clonazepam (*Crx) 0.5 Mg Tablet PO 0.5 mg HS SANCHEZ Administration Docusate Sodium 100 mg 03/22/24 17:00 03/22/24 16:05 Docusate Sodium 100 Mg Capsule PO 100 mg BID SANCHEZ Administration Folic Acid 1 mg 03/22/24 14:00 03/22/24 16:05 Folic Acid 1 Mg Tablet PO 1 mg DAILY SANCHEZ Administration Hydroxychloroquine Sulfate 200 mg 03/22/24 14:00 03/22/24 22:35 Hydroxychloroquine Sulfate 200 Mg Tablet PO 200 mg Q12HR SANCHEZ Administr
[2024-03-23 07:45] VITALS: BP 145/66
[2024-03-23 08:00] VITALS: BP 149/66; PULSE 70; RESP 16; TEMP 36.8; O2SAT 98
--- NOTE | 2024-03-23 09:46 | WPDANESPN ---
Anes - Prog Note Post-Op Date/Time: 03/23/24 09:46 Cardiovascular status: normal Respiratory status: normal Airway patency: baseline Mental status: baseline Post-Op hydration status: normal Vital Signs: Last Vital Signs Temp 36.8 C 03/23/24 08:00 Pulse 70 03/23/24 08:00 Resp 16 03/23/24 08:00 BP 149/66 H 03/23/24 08:00 Pulse Ox 98 03/23/24 08:00 O2 Del Method Room Air 03/22/24 21:26 O2 Flow Rate 8 03/22/24 11:28 Pain Score (VAS): 310 I/O: Intake & Output 03/22/24 03/23/24 03/23/24 23:59 07:59 15:59 Intake Total 490 850 360 Output Total 1200 4805 Balance -179 -6759 360 Laboratory Tests 03/23/24 05:46 03/23/24 05:46 03/23/24 05:46 Hgb 13.4 L Hct 41.0 L Sodium 138 Potassium 4.4 Chloride 106 Carbon Dioxide 27 Anion Gap 5 BUN 13 Creatinine 0.90 Estim Creat Clear Calc 75 Estimated GFR > 60 Glucose 113 H Calcium 9.2 Post-procedural complaints: none Patient Feedback: Patient satisfied with anesthetic care.
[2024-03-23] MEDS: buPROPion HCL 75 MG TABLET PO (09:51)
[2024-03-23] MEDS: FOLIC ACID 1 MG TABLET PO (09:51)
[2024-03-23] MEDS: CEPHALEXIN 500 MG CAPSULE PO (09:51)
[2024-03-23] MEDS: predniSONE 1 MG TABLET 4 MG PO (09:51)
[2024-03-23] MEDS: HYDROXYCHLOROQUINE SULFATE 200 MG TABLET PO (09:52)
[2024-03-23] MEDS: DOCUSATE SODIUM 100 MG CAPSULE PO (09:52)
[2024-03-23] MEDS: amLODIPine BESYLATE 5 MG TABLET PO (09:52)
[2024-03-23] MEDS: RANOLAZINE 500 MG TAB.ER.12H 1000 MG PO (09:52)
[2024-03-23] MEDS: LORATADINE 10 MG TABLET PO (09:52)
[2024-03-23 11:47] VITALS: BP 140/75; PULSE 74; RESP 19; TEMP 36.7; O2SAT 100
--- NOTE | 2024-03-23 12:11 | P.DS_ITS ---
DS: Admitting Diagnosis Discharge Date 01/22/2024 / 1211pm Admitting Diagnosis BPH DS: Discharge Diagnosis Discharge Diagnosis (1) BPH loc w urin obs/LUTS: Code(s): N40.1 - Benign prostatic hyperplasia with lower urinary tract symptoms Status: Acute DS: Summary Hospital Course Hospital Course: This patient with longstanding prostatism refractory for medical management was admitted on the morning of his planned TURP. The procedure was undertaken on t hat same day in an uneventful fashion. His post-operative course was, likewise, uneventful. On the evening of the procedure he was tolerating a diet. On POD#1 his urine was clear on CBI. The urine remained clear and, therefore, the catheter was removed late morning. The patient was observed for several hours, until he demonstrated he could void effectively without significant hematuria. He was discharged with careful instruction on limiting physical activity x2 weeks and plans to f/ in 2-3 weeks. At discharge he was comfortable and tolerating a diet. Time Spent with Patient Time attestation: Total time spent providing and/or coordinating discharge services: DS: Data Data Completed and Pending Completed studies during hospitalization: Pending at discharge 03/22/24 11:05 Surgical [PTH] Routine Labs on day of discharge: Labs from last 24 hours 03/23/24 05:46 Hgb 13.4 L Hct 41.0 L Sodium 138 Potassium 4.4 Chloride 106 Carbon Dioxide 27 Anion Gap 5 BUN 13 Creatinine 0.90 Estim Creat Clear Calc 75 Estimated GFR > 60 Glucose 113 H Calcium 9.2 Discharge Plan Discharge Patient Disposition: Home, Self-Care Discharge Instructions: 1) Activity: No lifting/straining >15lbs. x2 weeks. 2) Diet: Resume normal pre-admission diet. 3) Follow-up: 2-3 weeks / call office for appointment ([phone]). Stand Alone Forms: General Discharge Instructions Discharge Orders: Discharge Order (Routine); Ordered 03/23/24 Ordered By: Timmy Sheldon Discharge Medications: New hydrocodone-acetaminophen 5-325 mg tablet 1 - 2 tablet PO Q6H PRN (Reason: pain) Qty: 20 0RF cephalexin 500 mg capsule 500 mg PO Q8H Qty: 9 0RF Continued clonazepam 0.5 mg tablet 0.5 mg PO HS amlodipine 5 mg tablet 5 mg PO QAM bupropion HCl 75 mg tablet 75 mg PO BID folic acid 1 mg tablet 1 mg PO DAILY hydroxychloroquine 200 mg tablet 200 mg PO BID methotrexate sodium 2.5 mg tablet 20 mg PO WEEKLY Rx Instructions: MONDAYS terazosin 10 mg capsule 10 mg PO HS ranolazine 1,000 mg tablet extended release 12 hr 1,000 mg PO QAM prednisone 1 mg tablet 4 mg PO DAILY pramipexole 0.25 mg tablet 0.25 mg PO HS acetaminophen 500 mg Capsule 1,000 mg PO QID PRN (Reason: Pain) multivitamin Tablet 1 tablet PO DAILY calcium carbonate-vitamin D3 600 mg-5 mcg (200 unit) Tablet 1 tablet PO DAILY cholecalciferol (vitamin D3) 25 mcg (1,000 unit) Tablet 25 mcg PO DAILY Zyrtec 10 mg Capsule 10 mg PO DAILY Held ibuprofen 200 mg Capsule 400 mg PO Q6H PRN (Reason: Pain) Hold Instructions: Resume on 03/26/24. Discontinued finasteride 5 mg tablet 5 mg PO QAM
== END 2024-03-23 13:00 | disposition home or self-care (01) ==
LOC: ANHSURGERY 08:38 → ANH3MEDSUR 12:43
PROVIDERS: PCP Internal Medicine; Visit Provider Urology
PROC: 0VT08ZZ Resection of Prostate, Via Natural or Artificial Opening Endoscopic (ICD-10-PCS; CPT 52601; principal; 2024-03-22 11:00)
DX: N40.1 Benign prostatic hyperplasia with lower urinary tract symptoms (principal); N41.1 Chronic prostatitis; N13.9 Obstructive and reflux uropathy, unspecified; I10 Essential (primary) hypertension; M06.9 Rheumatoid arthritis, unspecified; F41.9 Anxiety disorder, unspecified; F32.A Depression, unspecified; G25.81 Restless legs syndrome; Z87.891 Personal history of nicotine dependence
CPT/HCPCS: 52601; 36415; 80048; 85014; 85018; 88305; A9270; J0690; J1100; J1885; J2405; J2704; J3010; J7120

== ENCOUNTER 2024-12-13 11:40 | Emergency (ER) | payer MEDICARE, SELFPAY ==
[2024-12-13 11:45] VITALS: BP 141/63; PULSE 75; RESP 20; TEMP 36.3; O2SAT 98
[2024-12-13 12:22] LABS: EDCOVIDSCREEN Negative (Negative); EDINFLUASCREEN Negative (Negative); EDINFLUBSCREEN Negative (Negative)
--- NOTE | 2024-12-13 12:41 | ED.URI ---
HPI - URI/Sore Throat General Chief Complaint: Upper Respiratory Infection Stated Complaint: sinus/cold symptoms Time Seen by Provider: 12/13/24 12:41 Source: patient Mode of arrival: ambulatory Limitations: no limitations History of Present Illness HPI Narrative: 79-year-old male presented for complaint of cough and chest congestion for 3 days. Endorses feeling run down. Denies shortness of breath, wheezing nausea vomiting, diarrhea, fevers or lethargy. Taking Coricidin HBP for symptoms. Related Data Home Medications ?Medication ?Instructions ?Recorded ?Confirmed ?Last Taken ?Type amlodipine 5 mg tablet 5 mg PO QAM 01/18/23 03/13/24 03/22/24 History bupropion HCl 75 mg tablet 75 mg PO BID 01/18/23 03/13/24 03/22/24 History clonazepam 0.5 mg tablet 0.5 mg PO HS 01/18/23 03/13/24 03/21/24 History folic acid 1 mg tablet 1 mg PO DAILY 01/18/23 03/22/24 3 Days Ago History ~03/19/24 hydroxychloroquine 200 mg tablet 200 mg PO BID 01/18/23 03/22/24 03/21/24 History methotrexate sodium 2.5 mg tablet 20 mg PO WEEKLY 10/03/23 03/13/24 03/19/24 History ranolazine 1,000 mg 1,000 mg PO QAM 10/03/23 03/13/24 03/22/24 History tablet,extended release,12 hr acetaminophen 500 mg capsule 1,000 mg PO QID PRN Pain 03/13/24 03/13/24 03/21/24 History calcium 600 mg (as 1 tablet PO DAILY 03/13/24 03/13/24 3 Days Ago History carbonate)-vitamin D3 5 mcg (200 ~03/19/24 unit) tablet cetirizine 10 mg capsule (Zyrtec) 10 mg PO DAILY 03/13/24 03/13/24 03/21/24 History cholecalciferol (vitamin D3) 25 25 mcg PO DAILY 03/13/24 03/13/24 3 Days Ago History mcg (1,000 unit) tablet ~03/19/24 ibuprofen 200 mg capsule 400 mg PO Q6H PRN Pain 03/13/24 03/13/24 03/19/24 History multivitamin 1 tablet PO DAILY 03/13/24 03/22/24 3 Days Ago History ~03/19/24 pramipexole 0.25 mg tablet 0.25 mg PO HS 03/13/24 03/13/24 03/21/24 History prednisone 1 mg tablet 4 mg PO DAILY 03/13/24 03/13/24 03/22/24 History gabapentin 300 mg capsule mg 12/13/24 Unknown History Allergies Allergy/AdvReac Type Severity Reaction Status Date / Time No Known Allergies Allergy Verified 12/13/24 11:57 Review of Systems Review of Systems: ROS per HPI All systems reviewed & are unremarkable except as noted in HPI and below PMFSH Past Medical History Medical History Anxiety BPH (benign prostatic hyperplasia) Depression Hypertension Malignant melanoma, stage IV M1a Restless leg syndrome Rheumatoid arthritis Tuberculosis Surgical History Surgical History H/O lateral meniscus repair of left knee H/O lateral meniscus repair of right knee History of appendectomy History of lung biopsy Social History Social History Smoking packs per day: 1.5 Smoking cigarettes per day: 30.0 Years smoked: 24 Smoking pack-years: 36.00 Smoking status: Former smoker Additional smoking assessment comments: Quit over 30 years ago Alcohol intake: current Drinks per week: 3 Alcohol use details: rare social Substance use type: does not use Do You Feel Safe in your Home?: Yes Lack of Transportation: No Lack of Food: Never True Current Housing: I Have Housing Concerned About Future Housing: No Difficulty Paying Gas/Electric Bills: No Difficulty Paying for Meds: No Currently Unemployed: No Education: High School Diploma/GED Difficulty w/ Childcare or Family Care: No Living arrangements: with family Additional living arrangements comments: Gender identity (if verbalized by the patient): Male Spiritual care concerns: No Comments At time of signature, I have reviewed and agree with nursing past medical, surgical, social and family history unless otherwise noted. Please see nursing chart for further information. There is no relevant family history pertinent to the presenting complaint Exam Narrative: GENERAL: Well-appearing, in no acute distress. EYES: EOMI. No redness or drainage. Conjunctivae normal. ENT: Mucous membranes pink and moist. No rhinorrhea. TMs normal bilaterally. Throat normal. Uvula midline. NECK: Normal AROM. Supple. CHEST: No respiratory distress. lungs clear to all del cid. HEART: Regular rate and rhythm. No murmur appreciated. EXTREMITIES: Normal range of motion. No edema. SKIN: Warm, dry, no rash. Capillary refill normal. Normal skin turgor. NEURO: Alert and oriented x3. Gait steady. PSYCH: Normal affect. Course Course Emergency Course: Patient is aware of diagnosis, understands and agrees to treatment plan. Anticipatory guidance given. Patient agrees to follow-up as directed and is aware of reasons to seek care at the emergency department. Portions of this record may have been created with voice recognition software Level of Care: Express Care Visit Vital Signs Vital signs: Vital Signs Temperature 97.4 F L 12/13/24 11:45 Pulse Rate 75 12/13/24 11:45 Respiratory Rate 20 12/13/24 11:45 Blood Pressure 141/63 H 12/13/24 11:45 Pulse Oximetry 98 12/13/24 11:45 Oxygen Delivery Room Air 12/13/24 11:45 Temperature 97.4 F L 12/13/24 11:45 Pulse Rate 75 12/13/24 11:45 Respiratory Rate 20 12/13/24 11:45 Blood Pressure 141/63 H 12/13/24 11:45 Pulse Oximetry 98 12/13/24 11:45 Oxygen Delivery Room Air 12/13/24 11:45 MDM - URI/Sore Throat MDM Narrative Medical decision making narrative: negative flu and COVID Discussed physical exam findings. Advised supportive measures and signs/symptoms to go to the ER. Pt is appropriate for outpt treatment and f/u. Differential Diagnosis Differential diagnosis: Likely upper respiratory infection, otitis media, sinusitis, viral infection, bronchitis and influenza Lab Data Labs: Lab Results 12/13/24 Range/Units 11:47 POC Influenza A Ag Negative (Negative) POC Influenza B Ag Negative (Negative) POC SARS CoV-2 Ag Negative (Negative) Discharge Plan Discharge Clinical Impression: Bronchitis Patient Disposition: Home, Self-Care Condition: Stable Instructions: Antibiotic Form, Acute Bronchitis (ED) Additional Instructions: Flu and COVID negative Take medication as directed Recommendations: Flonase spray and Zyrtec (or Claritin/Chantelle) over the counter Cough syrup may cause drowsiness; avoid driving or take it at night time. Coricidin HBP if you have hypertension Tylenol 1000mg every 8 hours as needed for pain Symptomatic treatment includes: rest, fluids, and increase humidity of the air at home. Follow up with your primary care provider as needed in 1 week Go to the ER for worsening symptoms or concerns Patient Language: Azeri Prescriptions: New benzonatate 200 mg capsule 200 mg PO TID PRN (Reason: cough) Qty: 20 0RF prednisone 20 mg tablet 20 mg PO DAILY Qty: 5 0RF No Action gabapentin 300 mg capsule clonazepam 0.5 mg tablet 0.5 mg PO HS amlodipine 5 mg tablet 5 mg PO QAM bupropion HCl 75 mg tablet 75 mg PO BID folic acid 1 mg tablet 1 mg PO DAILY hydroxychloroquine 200 mg tablet 200 mg PO BID methotrexate sodium 2.5 mg tablet 20 mg PO WEEKLY Rx Instructions: [facility] ranolazine 1,000 mg tablet extended release 12 hr 1,000 mg PO QAM prednisone 1 mg tablet 4 mg PO DAILY pramipexole 0.25 mg tablet 0.25 mg PO HS ibuprofen 200 mg Capsule 400 mg PO Q6H PRN (Reason: Pain) acetaminophen 500 mg Capsule 1,000 mg PO QID PRN (Reason: Pain) multivitamin Tablet 1 tablet PO DAILY calcium carbonate-vitamin D3 600 mg-5 mcg (200 unit) Tablet 1 tablet PO DAILY cholecalciferol (vitamin D3) 25 mcg (1,000 unit) Tablet 25 mcg PO DAILY Zyrtec 10 mg Capsule 10 mg PO DAILY hydrocodone-acetaminophen 5-325 mg tablet 1 - 2 tablet PO Q6H PRN (Reason: pain) Qty: 20 0RF cephalexin 500 mg capsule 500 mg PO Q8H Qty: 9 0RF Follow-up/Referrals: Tito,Darin Obrien MD [Primary Care Provider] -
== END 2024-12-13 12:50 | disposition home or self-care (01) ==
PROVIDERS: Emergency Provider Nurse Practitioner Family; PCP Internal Medicine
DX: J40 Bronchitis, not specified as acute or chronic (principal); I10 Essential (primary) hypertension; M06.9 Rheumatoid arthritis, unspecified; Z85.828 Personal history of other malignant neoplasm of skin; Z87.891 Personal history of nicotine dependence; Z20.822 Contact with and (suspected) exposure to COVID-19
CPT/HCPCS: 87426; 87804; 99213; G0463

== ENCOUNTER 2025-03-03 10:28 | Emergency (ER) | payer MEDICARE, SELFPAY ==
--- NOTE | ~2025-03-03 | XR_ITS ---
Clinical Indication: Cough PA and lateral views of the chest: Comparison: 06/10/2019 Findings: The lungs are clear, without evidence of focal consolidation or pleural effusion. Cardiome diastinal silhouette is within normal limits. Bones and soft tissues are unremarkable. Impression: Normal chest. Reviewed, dictated and finalized at [facility]. Impression: Normal chest.
--- OUTSIDE RECORDS SUMMARY | 2025-03-03 10:33 | XMS_ITS | Continuity of Care Document ---
Author Organization [employer] [facility] [place] [address] [place] [address] Phone Care Team Providers Care Film Examiner Name Role Phone Albertina Swenson OD Unavailable Unavailable Allergies, Adverse Reactions, Alerts Substance Reaction Status Criticality No Known Allergies Active No Inform ation Medications Medication Instructions Dosage Effective Dates (start - stop) Status Comments loteprednol etabonate 0.5 % eye drops,suspension instill 1 drop by ophthalmic route 2 times every day into affected eye(s) 1 drop - Active Restasis 0.05 % eye drops in a dropperette instill 1 drop by ophthalmic route every 12 hours into affected eye(s) 1.00 drop - Active generic allowed Ranexa 1,000 mg tablet,extended release take 1 tablet by oral route 2 times every day - Active hydroxychloroquine 200 mg tablet take 1 tablet by oral route 2 times every day 200 MG - Active pramipexole ER 2.25 mg tablet,extended release 24 hr take 1 tablet by oral route every day 2.25 MG - Active Xatmep 2.5 mg/mL oral solution take 6 tablet by oral route every 1 for 1 week 6 tablet - Active clonazepam 0.5 mg tablet take 1 tablet b y oral route 3 times every day 0.5 MG - Active prednisone 10 mg tablet take 1 tablet by oral route every day 10 MG - Active folic acid 1 mg tablet take 1 tablet by oral route every day 1 MG - Active bupropion HCl 75 mg tablet take 1 tablet by oral route 3 times every day 75 MG - Active amlodipine besylate (bulk) 5 mg ORAL TABLET take one tablet daily - Active Procedures Procedure Date Visual Field Examination(s) No Charge Optomap Fundus Photos 025 SCODI, Retina Office/outpatient Visit, Est Office/outpatient Visit, Est Xcellent A 3000 60 C Office/outpatient Visit, Est InflammaDry No Charge Optomap Fundus Photos 024 Office/outpatient Visit, Est Refraction Office/outpatient Visit, Est Fundus Photography W/ Report Refraction Eye Exam & Treatment Refraction Post-op Follow-up Visit Fundus Photography W/ Report No Charge Refraction After Cataract Laser Surgery Eye Exam & Treatment No Charge Optomap Fundus Photos 021 No Charge Refraction Post-op Follow-up Visit No Charge Refraction Fundus Photography W/ Report After Cataract Laser Surgery Office/outpatient Visit, Est Fundus Photography W/ Report Eye Exam & Treatment Eye Exam & Treatment Eye Exam & Treatment No Charge Refraction Post-op Follow-up Visit No Charge Refraction Post-op Follow-up Visit Post-op Follow-up Visit Complex Extracapsular Cat Rem, PO Care M Complex Extracapsular Cat Rem, Comanaged [facility]-Professional No Charge Refraction Post-op Follow-up Visit Post-op Follow-up Visit Complex Extracapsular Cat Rem, PO Care F Complex Extracapsular Cat Rem, Comanaged [facility]-Professional No Charge Refraction Office/outpatient Visit, Est No Charge Refraction No Charge Orbscan Eye Exam, New Patient [employer]-Technical Advance Directives Directive Yes / No Effective Date File Name No Information Encounters Encounter Description Practice Location Reason(s) For Visit Diagnoses Date Provider Providers Copied on Encounter [place] [facility] [place] [address], [place], [place], [address], tel:[phone] SEC Killian SPARKS Professional Plaquenil exam (chief complaint) Drusen (degenerative ) of macula, bilateralDry eye syndrome of bilateral lacrimal glandsHigh risk medication use 5 Leela OD Albertina. [address] [place] [address] [address], [address], [place], [place], [address], [place]. tel:[phone] Specialist : Octavio Santos MD, [address] [facility] [address], [place], [address]. tel:[phone] cialist: Jennifer Atkins MD, [facility] 5th Floor [address], [place], [address]. tel:[phone] erring Provider: Chalo Betts, [address], [place], [address] . tel:[phone] Office/outpa [place]ient [place], [facility] [place] [address], [place], [place], [address], [place] tel:[phone] SEC Killian SPARKS Professional Dry Eye FU (chief complaint) Dry eye syndrome of bilateral lacrimal glands 4 Leela OD Albertina. [address], [address], [place], [place], [address], [place]. tel:[phone] Octavio Santos MD.Jennifer Atkins MD.Referri ng Provider: Chandu Reynoso, [address] [facility] [address], [place], [address] . tel:[phone] Office/outpa tient Visit, [facility], [address], [place], [place], [address], [place] tel:[phone] SEC [place] Professional Dry Eye Evaluation (chief complaint) Dry eye syndrome of bilateral lacrimal glands Oct-2 -202 4 Leela OD Albertina. [address] [place] [address] [address], [address], [place], [place], [address], [place]. tel:[phone] Octavio Santos MD.Jennifer Atkins MD.Referri Provider: Chandu Reynoso, [address] [facility] [address], [place], [address] . tel:[phone] [facility], [address] [place] [address] [address], [place], [place], [address], [place] tel:[phone] SEC [place] No Information Sep-2 4 Morenita Chalo. [address] [place] [address] [address], [address], [place], [place], [address], [place]. tel:[phone] Office/outpa [place]ient [place], [facility] [place] [address] [place] [address] [address], [place], [place], [address], [place] tel:[phone] SEC [place] Professional Floaters (chief complaint) Presence of intraocular lensRPE mottling of maculaSkin melanomaPoste rior vitreous detachment of left eyeDry eye syndrome of bilateral lacrimal glands Sep-1 4 Leela OD Albertina. [address] [place] [address] [address], [address], [place], [place], [address], [place]. tel:[phone] Specialist : Octavio Santos MD, [address] [facility] [address], [place], [address]. tel:[phone] cialist: Jennifer Atkins MD, [address] [facility] 5th Floor [address], [place], [address]. tel:[phone] erring Provider: Albertina Leela OD K, [address] [place] [address] [address], [place], [address] . tel:[phone] Office/outpa tient Visit, Est [facility], [address] [place] [address] [address], [place], [place], [address], [place] tel:[phone] SEC Killian SPARKS Professional Complete Exam (chief complaint) Skin melanomaDruse n (degenerative ) of macula, bilateralBila teral artificial lens implant Dec-0 3 Leela OD Albertina. [address] [place] [address] [address], [address], [place], [place], [address], [place]. tel:[phone] Octavio Santos MD.Referri ng Provider: Albertina Swenson OD Rosalina, [address] [place] [address] [address], [place], [address] . tel:[phone] [facility], [address] [place] [address] [address], [place], [place], [address], [place] tel:[phone] SEC Killian SPARKS Professional Complete Exam (chief complaint) Drusen (degenerative ) of macula, bilateralPres ence of intraocular lensSkin melanoma Nov-0 2 Daniel Schofield. [address] [facility], [address], [place], [place], [address], [place]. tel:[phone] Octavio Santos MD.Referri ng Provider: Chandu Reynoso, [address] [facility] [address], [place], [address] . tel:[phone] [facility], [address] [place] [address] [address], [place], [place], [address], [place] tel:[phone] SEC Killian SPARKS Professional 2 week s/p YAG PC (chief complaint) Post op visit Oct-2 1 Daniel Schofield. [address] [facility], [address], [place], [place], [address], [place]. tel:[phone] Octavio Santos MD.Referri ng Provider: Chandu Reynoso, [address] [facility] [employer] [address], [place], [address] . tel:[phone] [facility], [address] [place] [address] [address], [place], [place], [address], [place] tel:[phone] SEC [place] Professional 6 month Complete (chief complaint) Bilateral artificial lens implantOther secondary cataract, right eyeDrusen (degenerative ) of macula, bilateral Oct-1 1 Daniel Schofield. [address] [facility] [employer], [address], [place], [place], [address], [place]. tel:[phone] Octavio Santos MD.Referri ng Provider: Chandu Reynoso, [address] [facility] [address], [place], [address] . tel:[phone] [facility], [address] [place] [address] [address], [place], [place], [address], [place] tel:[phone] SEC [place] Professional YAG PC PO(01/02/21) & possible YAG PC (chief complaint) Encounter for examination following surgery Jan- 1 Daniel Schofield. [address] [employer], [address], [place], [place], [address], [place]. tel:[phone] Octavio Santos MD.Referri ng Provider: Chandu Reynoso, [address] [facility] [address], [place], [address] . tel:[phone] Office/outpa tient Visit, Est [facility], [address] [place] [address] [address], [place], [place], [address], [place] tel:[phone] SEC [place] Professional YAG PC evaluation (chief complaint) Bilateral artificial lens implantOther secondary cataract, right eyeOther secondary cataract, left eyeVitreous degeneration, right eyeDrusen (degenerative ) of macula, bilateral Mar- 1 Daniel Schofield. [address] [employer], [address], [place], [place], [address], [place]. tel:[phone] Octavio Santos MD.Referri ng Provider: Bertha Devi, [address] [facility], [place], [address]. tel:[phone] [facility], [address] [place] [address] [address], [place], [place], [address], [place] tel:[phone] SEC [place] Professional Complete Exam (chief complaint) Bilateral artificial lens implantOther secondary cataract, bilateralDrus en (degenerative ) of macula, bilateralABMD (anterior basement membrane dystrophy) Dec- 8-202 0 Daniel Schofield. [address] [facility], [facility] [address], [place], [place], [address], [place]. tel:[phone] Octavio Santos MD.Referri ng Provider: Chandu Reynoso, [address] [facility] [address], [place], [address] . tel:[phone] [facility], [address] [place] [address] [address], [place], [place], [address], [place] tel:[phone] SEC [place] Professional Complete Exam (chief complaint) Bilateral artificial lens implantOther secondary cataract, bilateralDrus en (degenerative ) of macula, bilateral Oct-2 5-201 9 Daniel Schofield. [address] [facility], [facility] [place], [address], [place]. tel:[phone] Referring Provider: Chandu Reynoso, [address] [facility] [address], [place], [address] . tel:[phone] [facility], [address] [place] [address] [address], [place], [place], [address], [place] tel:[phone] SEC [place] Professional 6 mo Complete exam (chief complaint) Bilateral artificial lens implantDrusen (degenerative ) of macula, bilateralOthe r secondary cataract, bilateralABMD (anterior basement membrane dystrophy)Ana María topsia of left eye Oct-2 6-201 8 Daniel Schofield. [address] [facility], [address], [address], [place]. tel:[phone] Referring Provider: Bertha Devi, [address] [place], [address]. tel:[phone] [facility], [address] [place] [address] [address], [place], [place], [address], [place] tel:[phone] SEC [place] CLARE Professional PCIOL PO and Refraction (chief complaint) No Information Jan- 8 Marito Stone. [address] [place], [address], [place]. tel:[phone] Referring Provider: Bertha Devi, [address] [place] [address], [address]. tel:[phone] [facility], [address] [place] [address] [address], [place], [place], [address], [place] [phone] SEC Killian CLARE Professional Post-Op (chief complaint) No Information Dec- 8 Marito Stone. [address] [place], [address], [place]. tel:[phone] Referring Provider: Bertha Devi, [address] [place], [address]. tel:[phone] [facility], [address], [place], [place], [address], [place] [phone] SEC Killian CLARE Professional Post-Op (chief complaint) No Information Dec- 8 Marito Stone. [address] [place] [address], [address], [place]. tel:[phone] Referring Provider: Bertha Devi, [address] [place], [address]. tel:[phone] [facility], [address] [place] [address] [address], [place], [place], [address], [place] [phone] SEC [place] Professional Post-Op (chief complaint) No Information Mar-0 7-201 8 Marito Stone. [address] [place], [address], [place]. tel:[phone] Referring Provider: Bertha Devi, [address] [place], [address]. tel:[phone] [facility], [address] [place] [address] [address], [place], [place], [address], [place] tel:[phone] [facility] No Information Mar-0 6-201 8 Marito Stone. [address] [place], [place], [facility], [place]. tel:[phone] Referring Provider: Bertha Devi, [address] [place] [address], [facility]. tel:[phone] [facility], [address] [place] [address] [address], [place], [place], [address], [place] tel:[phone] SEC [facility] No Information Mar-0 5- 8 Marito Stone. [address] [place], [address], [place]. tel:[phone] Referring Provider: Bertha Devi, [address] [place] [address], [address]. tel:[phone] [facility], [address] [place] [address] [address], [place], [place], [address], [place] [phone] SEC [place] Professional Post-Op (chief complaint) No Information Nov-2 - 8 Marito Stone. [address] [place] [address], [facility], [place]. tel:[phone] Referring Provider: Bertha Devi, [address] [place] [address], [facility]. tel:[phone] [facility], [address] [place] [address] [address], [place], [place], [address], [place] tel:[phone] SEC Killian CLARE Professional Post-Op (chief complaint) No Information b1 8 Nicki Green. [address] [facility], [place], [address], [place]. tel:[phone] Referring Provider: Bertha Devi, [address] [place] [address], [address]. tel:[phone] [facility], [address], [place], [place], [address], [place] tel:[phone] SEC [place] CLARE Professional 1 day PO PCIOL (chief complaint) No Information b0 8 Marito Stone. [address] [place], [address], [place]. tel:[phone] Referring Provider: Bertha Devi, [address] [place] [address], [facility]. tel:[phone] [facility], [address], [place], [place], [address], [place] tel:[phone] [facility] No Information b0 8 Marito Stone. [address] [place], [address], [place]. tel:[phone] Referring Provider: Bertha Devi, [address] [place], [address]. tel:[phone] [facility], [address], [place], [place], [address], [place] tel:[phone] SEC Tracy Norman No Information 0 8 Marito Stone. [address] [place], [address], [place]. tel:[phone] Referring Provider: Bertha Devi, [address] [place] [address], [facility]. tel:[phone] Office/outpa tient Visit, Est [facility], [address], [place], [place], [address], [phone] SEC Killian SPARKS Professional Cataract evaluation (chief complaint) No Information Marito Stone. [address] [place], [place], [facility], . tel:[phone] Referring Provider: Bertha Devi, [address] [place], [place], [facility]. tel:[phone] [facility], [address], [place], [place], [address], [phone] SEC [place] CLARE Professional Complete Exam (chief complaint) No Information Marito Stone. [address] [place], [facility], . tel:[phone] Referring Provider: Bertha Devi, [address] [place], [facility]. tel:[phone] [facility], [address] [facility] [address] [place], [place], [address], [phone] SEC [place] CLARE Professional No Information Marito Stone. [address] [place], [place], [facility], . tel:[phone] Family History Family Member Type Diagnosis Age At Onset No Information Payers Payer name Insurance type Covered democrat ID Authoriza tion(s) [place] [id number] [facility] [id number] Social History Type Description Quantity Date Captured Comments Alcohol Use Details beer 3 beers daily Caffeine Use Details coffee 3 cups per day Tobacco Use Status Ex-cigarette smoker 025 Smoking Status Former smoker Smoking Tobacco Use Details Cigarette: Age Started: 22, Age Stopped: 42, Years Used 20 Cigarette: 1 Packs per day, Pack Year: 20 Sex Male Gender Identity Male Chief Complaint And Reason For Visit From encounter dated '10/30/2024 09:00'. Plaquenil exam (chief complaint). Description: The 79 year old patient presents for evaluation of Plaquenil exam in the right eye and left eye. Pt in on 200 mg Plaquenil mg bid followed by Dr. Atkins.Pt has Fibromyalgia Rhemalagia. Pt states vision is stable. Pt has had to use the steroid drop multiple times for discomfort. Reason For Referral Reason For Referral No Information Plan Of Treatment Date Type Action Status Goal Tobacco cessation counseling completed Goal Tobacco cessation counseling completed Goal Tobacco cessation counseling completed Patient Education Learning About YAG Lase r Capsulotomy completed Patient Education Learning About YAG Lase r Capsulotomy completed Patient Education Learning About YAG Lase r Capsulotomy completed Patient Education Learning About YAG Lase r Capsulotomy completed History Of Present Illness Encounter Date Complaint History Of Prese nt Illness Plaquenil exam The 79 year old patient presents for evaluation of Plaquenil exam in the right eye and left eye. Pt in on 200 mg Plaquenil mg bid followed by Dr. Atkins. Pt has Fibromyalgia Rhemalagia. Pt states vision is stable. Pt has had to use the steroid drop multiple times for discomfort. Dry Eye FU The 78 year old patient presents for evaluation of Dry Eye FU in the right eye and left eye. Pt states that OS has been watering a lot since last visit. Pt states that Restasis seems to help. Pt takes Loteprednol as needed in OS. Pts Speed score today was 4/28 and TBUT OD: 9.75 OS: 22.94 Dry Eye Evaluation The 78 year o ld patient presents for evaluation of Dry Eye Evaluation in the right eye and left eye. Pt states Xiidra was too high of cost to use beyond the 10 days and they switched to Restasis and is still using it. Pt used Blink in between the use of the others. Pt states he has not noticed any change to dryness and feels as though he is not having any uncomfortable symptoms with ERVIN.SPEED: 12/14TBUT: Pt declined all dry eye testing. Floaters The 78 year old patient presents for evaluation of Floaters in the right eye and left eye. Pt has been on Plaquenil for a year and a half, he does not know why he is on it but was put on it by Dr Pura Atkins. Pt states floaters OU, OS>OD. Pt states he has a big film over vision OS, will move when he blinks. Pt denies any flashes of light or webs/curtains. Pt states vision has had floaters for a long time and they have just gotten worse over last 9 months. Complete Exam The 77 year old patient presents for evaluation of Complete Exam in the right eye and left eye. Pt states they have some floaters in OU but mostly in OD. Pt said they noticed them about a year ago and pt states they seem to have gotten worse. Complete Exam The 76 year old patient presents for evaluation of Complete Exam in the right eye and left eye. Pt reports stable VA, OU, DV and NV, since last appt. Pt reports he doesn't use any gtts, OU. Pt reports he was Dx w/stage 4 skin cancer, had Sx to take it out of back of the neck, he had a couple of spots in his lung, had some infusions that seemed to stop the growth of the spots but it has messed up his immune system. Pt reports he would like MRX and is aware of fee. 2 week s/p YAG PC The 75 year ol d male presents for evaluation of 2 week s/p YAG PC in the right eye. Patient states VA is brighter since the laser in the right eye. Patient would like a glasses rx today. 6 month Complete The 75 year old male presents for evaluation of 6 month Complete in the right eye and left eye. Hx of PCIOL OU, YAG PC OS, ABMD OS, and Mac Drusen OU. Patient states the VA in the right eye is getting darker. Patient has difficulty seeing in bright lights and glare at night. YAG PC PO(01/02/21) & possible YAG PC The 75 year old male presents for evaluation of YAG PC PO in the left eye (01/02/21) & possible YAG PC in the right eye. Pt reports he thinks OS is a little brighter, but not a lot. Pt reports he doesn't think he wants to do YAG PC OD. YAG PC evaluation The 75 year ol d male presents for evaluation of YAG PC evaluation in the right eye and left eye. Hx of PCIOL OU, PCO OU, Drusen OU, and ABMD OS. Pt reports he uses AFT PRN OU. Pt reports he has a hard time driving at night due to glare from headlights, OS>OD, x 3 mos. Complete Exam The 74 year old male presents for evaluation of Complete Exam in the right eye and left eye. Hx of PCIOL OU, PCO OU, and Drusen OU. Pt reports stable VA, OU, DV and NV, x 1 yr. Pt reports he uses AFT PRN OU. Complete Exam The 73 year old male presents for a complete exam ou. Monitoring IOLs ou. Patient c/o he has a few more floaters OD. Patient c/o OS sometimes gets matter in it. Patient denies any changes in vision ou. 6 mo Complete exam The 72 year o ld male presents for evaluation of 6 mo Complete exam in the right eye and left eye. Hx of PCIOL OU and Drusen OU. Pt takes Finasteride. Pt reports he uses AFT PRN OU and no pain, irritation or discomfort today, OU. Pt reports he sees well, DV, OU without gls. Pt reports he sees well, OU, NV, with OTC readers. Pt reports he notices a flash of light, like a car light, OS, temporal, intermittent, maybe the way he turns his OU he sees it, pt says it's nothing and he's happy with VA. Pt reports floaters, OU, x many yrs and no changes in size or shape of floaters. PCIOL PO and Refraction The 72 y ear old male presents for evaluation of PCIOL PO and Refraction in the right eye. Pt done with drops. OU are scratchy. Pt using refresh Optive TID OU Post-Op The 72 year old male presents for a 3 week post op CE OD. Patient is using Pred qd OD and Ketorolac qid OD. Patient has still been using Ofloxacin qid OD and I instructed patient to D/C. Patient states ou is doing good. Patient has been using refresh OS. Post-Op The 72 year old male presents for a 1 week post op CE OD. Patient is using Pred, Ofloxacin and Ketorolac qid OD. Patient states OD is doing good. Post-Op The 72 year old male presents for a 1 day post op CE OD. Patient is using Pred, ofloxacin, and Ketorolac qid OD. Patient c/o OD feels very scratchy. Post-Op The 72 year old male presents for a 3 week post op CE OS. Patient states OS is doing good. Patient is using Pred tid OS and Ketorolac qid OS. Patient wishes to proceed with CE OD because of blurry decreased vision and is bothered by glare. Post-Op The 72 year old male presents for a 1 week post op CE OS. Patient is using Pred tid and Ketorolac qid OS and will finish ofloxacin today. Patient states OS is wonderful. 1 day PO PCIOL The 72 year old male presents for 1 day PO PCIOL in the left eye. Pt using Ofloxacin, Pred and Ketorolac QID OS. Pt states OS is doing well. States he did not have any pain or discomfort but he does have some dryness when OS is open for too long. Pt states he did not use any drops yesterday or this morning. Cataract evaluation The 71 year old male presents for Cataract evaluation in the right eye and left eye. Hx of CAT OU and Drusen OU. Pt takes Finasteride and Tamsulosin. Pt reports he has a hard time driving at night due to glare from oncoming headlights, OU, x 3-4 yrs, but gradually getting worse. Pt reports he doesn't use any gtts and no pain, irritation or discomfort today, OU. Complete Exam The 71 year old male presents for Complete Exam in the right eye and left eye. Patient c/o floaters ou for a long time and patient states every now and then has a flash of light but not sure which eye. Patient c/o hard to drive at night because of glare aound light. Patient has been told he has cataracts in the past and Dr. Cao has told him they aren't ripe enough. Functional Status Date Functional Assessmen t No Information Instructions Date Instruction Additional Infor amor Impression/Plan Impression/Plan Impression/Plan Impression/Plan Impression/Plan Impression/Plan Impression/Plan Impression/Plan Impression/Plan Impression/Plan Impression/Plan Impression/Plan Impression/Plan Impression/Plan Return in 1 month mi geovanni Devi M.D. for post op exam and Refraction. Related to Encounter for examination following surgery Impression/Plan Related to Encou nter for examination following surgery Impression/Plan Impression/Plan Follow up - Proceed with CE OD as scheduled Impression/Plan - PO W 3 s/p CE/PCIOL OS. Doing well. Continue post op drops as instructed. Proceed with CE OD as scheduled. Encounter for examin ation following surgery - Medication use reviewed Related to Encounter for examination following surgery Follow up - Patient will return as scheduled, sooner if any problems Impression/Plan - 1 Week Post-Op s/p phaco with PCIOL OS- IOL in great position; healing well- IOP well controlled- Activities restrictions and shield use reviewed- Medication instillation and post op instructions reviewed- Patient will return as scheduled, sooner if any problems Encounter for examin ation following surgery - Post op instructions reviewed and understood by patient Related to Encounter for examination following surgery Impression/Plan - PO D 1 s/p CE/PCIOL OS Doing well. IOP well controlled. Post op med instructions reviewed with pt, and post op instructions discussed. Discussed warning signs and symptoms and need for immediate exam should these occur. Pt understands shield use, return to clinic for post op exam as scheduled. Follow up - as scheduled Impression/Plan - Co ndition appears mild, will monitor. Related to RPE mottling of macula Combined forms of ag e-related cataract, left eye - Educational material provided Related to Combined forms of age-related cataract, left eye Impression/Plan - Ca taract presence and progression discussed. Cataracts account for the patients complaints. Discussed all risks, benefits, procedures and recovery. Vision will not significantly improve with a change in glasses and we recommend not changing. The patient understands this is an elective procedure and may proceed when desired. The patients questions were answered and demonstrates understanding of our discussion. Patient desires to have surgery, recommend phacoemulsification with intraocular lens. Discussed astigmatism with pt. Standard monofocal IOL OU. - Visually significant cataracts OU - Will plan on CE OS first then OD following, standard IOL set for distance OU - Dilates 5.0 mm OD , 5.5 mm OS - No trauma- No ASA/Plavix/Coumadin- Patient taking Finasteride, concern for floppy iris intraoperatively. Consider malyugan ring. - No History of DM - Patient has HTN- CAD with angina- No COPD, Asthma, RLS, THANG- Able to lay flat for 30 minutes- Special considerations for cataract surgery: Topical, Malyugan ring - Special considerations for lens: Standard IOL OU set for distance,- Pt does not do well with eye drop instillation, discussed options, artificial tears sample given for practice - Will need clearance from [employer] prior to surgery Follow up - CE OS fi rst then OD following, standard IOL set for distance OU Impression/Plan - Co ndition appears to be stable, treatment not needed, will monitor. Related to Drusen (degenerative) of macula, bilateral Impression/Plan - Ca taract presence and progression discussed. Cataracts account for the patients complaints. Discussed all risks, benefits, procedures and recovery. Vision will not significantly improve with a change in glasses and we recommend not changing. The patient understands this is an elective procedure and may proceed when desired. The patients questions were answered and demonstrates understanding of our discussion. Patient desires to have surgery, recommend phacoemulsification with intraocular lens. Discussed astigmatism with pt. Standard monofocal IOL OU. - Visually significant cataracts OU - Will plan on CE OS first then OD following, standard IOL set for distance OU - Dilates 5.3 mm OD , 5.5 mm OS - No trauma- No ASA/Plavix/Coumadin- Patient taking Finasteride, concern for floppy iris intraoperatively. Consider malyugan ring. 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
--- OUTSIDE RECORDS SUMMARY | 2025-03-03 10:33 | XMS_ITS | Continuity of Care Document ---
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 Name Role Phone Jewel Melara PT Unavailable Unavailable Procedures Procedure Date Therapeutic Activities Neuromuscular Re-Ed Therapeutic Exercise Therapeutic Activities Neuromuscular Re-Ed Therapeutic Exercise Doc neg elder mal no plan PT Evaluation Moderate Complexity Therapeutic Activities Neuromuscular Re-Ed Therapeutic Exercise Progress Note Neuromuscular Re-Ed Therapeutic Activities Therapeutic Exercise Manual Therapy Hot or Cold Pack Therapeutic Activities Neuromuscular Re-Ed Therapeutic Exercise Hot or Cold Pack Therapeutic Activities Neuromuscular Re-Ed Therapeutic Exercise Manual Therapy Therapeutic Activities Neuromuscular Re-Ed Therapeutic Exercise Manual Therapy Hot or Cold Pack Therapeutic Activities Neuromuscular Re-Ed Therapeutic Exercise Hot or Cold Pack Therapeutic Activities Neuromuscular Re-Ed Therapeutic Exercise Hot or Cold Pack Progress Note Therapeutic Activities Neuromuscular Re-Ed Therapeutic Exercise Hot or Cold Pack Therapeutic Activities Neuromuscular Re-Ed Therapeutic Exercise Hot or Cold Pack Therapeutic Activities Neuromuscular Re-Ed Therapeutic Exercise Hot or Cold Pack Therapeutic Activities Neuromuscular Re-Ed Therapeutic Exercise Progress Note Therapeutic Activities Neuromuscular Re-Ed Therapeutic Exercise Hot or Cold Pack Therapeutic Activities Neuromuscular Re-Ed Therapeutic Exercise Hot or Cold Pack Neuromuscular Re-Ed Therapeutic Activities Therapeutic Exercise Hot or Cold Pack Therapeutic Activities Neuromuscular Re-Ed Therapeutic Exercise Hot or Cold Pack Therapeutic Activities Neuromuscular Re-Ed Therapeutic Exercise Manual Therapy Hot or Cold Pack Therapeutic Activities Neuromuscular Re-Ed Therapeutic Exercise Hot or Cold Pack Therapeutic Activities Neuromuscular Re-Ed Therapeutic Exercise Manual Therapy Hot or Cold Pack Therapeutic Activities Neuromuscular Re-Ed Therapeutic Exercise Manual Therapy Hot or Cold Pack Therapeutic Activities Neuromuscular Re-Ed Therapeutic Exercise Hot or Cold Pack Manual Therapy Progress Note Therapeutic Activities Neuromuscular Re-Ed Therapeutic Exercise Manual Therapy Hot or Cold Pack Therapeutic Activities Neuromuscular Re-Ed Jul- Therapeutic Exercise Manual Therapy Hot or Cold Pack Therapeutic Activities Neuromuscular Re-Ed Jul- Therapeutic Exercise Manual Therapy Hot or Cold Pack Therapeutic Activities Neuromuscular Re-Ed Jul- Therapeutic Exercise Jul- Manual Therapy Hot or Cold Pack Therapeutic Activities Neuromuscular Re-Ed Jul- Therapeutic Exercise Jul- Hot or Cold Pack Therapeutic Activities Jul- Therapeutic Exercise Jul- Manual Therapy Hot or Cold Pack Progress Note Therapeutic Activities Neuromuscular Re-Ed Jul- Therapeutic Exercise Jul- Hot or Cold Pack Therapeutic Activities Neuromuscular Re-Ed Jul- Therapeutic Exercise Jul- Manual Therapy Jul- Hot or Cold Pack Therapeutic Activities Jul- Neuromuscular Re-Ed Jul- Therapeutic Exercise Jul- Hot or Cold Pack Manual Therapy Jul- Therapeutic Activities Jul- Neuromuscular Re-Ed Jul- Therapeutic Exercise Jul- Manual Therapy Jul- Hot or Cold Pack Therapeutic Activities Jul- Neuromuscular Re-Ed Jul- Therapeutic Exercise Jul- Manual Therapy Jul- Hot or Cold Pack Therapeutic Activities Neuromuscular Re-Ed Therapeutic Exercise Manual Therapy Hot or Cold Pack Therapeutic Activities Neuromuscular Re-Ed Therapeutic Exercise Hot or Cold Pack Therapeutic Activities Neuromuscular Re-Ed Therapeutic Exercise Hot or Cold Pack Therapeutic Activities Neuromuscular Re-Ed Therapeutic Exercise Hot or Cold Pack Therapeutic Activities Neuromuscular Re-Ed Therapeutic Exercise Hot or Cold Pack Progress Note Therapeutic Exercise Jun- Neuromuscular Re-Ed Jun- Therapeutic Activities Jun- Hot or Cold Pack Neuromuscular Re-Ed Jun- Therapeutic Exercise Jun- Manual Therapy Jun- Hot or Cold Pack Neuromuscular Re-Ed Jun- Therapeutic Exercise Jun- Manual Therapy Hot or Cold Pack Neuromuscular Re-Ed Jun- Therapeutic Exercise Jun- Manual Therapy Jun- Hot or Cold Pack Therapeutic Activities Jun- Therapeutic Exercise Jun- Hot or Cold Pack Manual Therapy Jun- Therapeutic Activities Jun- Therapeutic Exercise Jun- Manual Therapy Jun- Hot or Cold Pack Therapeutic Activities Neuromuscular Re-Ed Hot or Cold Pack Therapeutic Exercise Therapeutic Activities Neuromuscular Re-Ed Therapeutic Exercise Manual Therapy Hot or Cold Pack Doc neg elder mal no plan PRES/ABSN URINE INCON ASSESS PT Evaluation Moderate Complexity Therapeutic Activities Therapeutic Exercise Hot or Cold Pack Advance Directives Directive Yes / No Effective Date File Name No Information Encounters Encounter Description Practice Location Reason(s) For Visit Diagnoses Date Provider Providers Copied on Encounter [facility], [id number], tel:[phone] [place] No Information Saritha Holloway. . Referring Provider: Leslie Maldonado, [facility] [place], [address]. tel:[phone] [facility] [address] [address], [place], [place], [id number], tel:[phone] [place] No Information Chapincito Queen. . Referring Provider: Leslie Maldonado, [facility] [place], [address]. tel:[phone] [facility] [address] [address], [place], [place], [id number], tel:[phone] [place] No Information Saritha Holloway. . Referring Provider: Leslie Maldonado, [facility] [place], [address]. tel:[phone] [facility] [address] [address], [place], [place], [id number], tel:[phone] [place] No Information Kee Cornelius. . Referring Provider: Joseph Hernandez, [address] [facility] [address], [place], [address]. tel:[phone] [facility] [address] [facility], [place], [place], [id number], tel:[phone] [place] No Information Teodoro Stein. [address] [facility], [address], [place], [address], [place]. tel:[phone] Referring Provider: Joseph Hernandez, [address] [place] [address] [address], [place], [address]. tel:[phone] [facility] [address] [facility] [address], [place], [place], [id number], tel:[phone] [place] No Information Austin Martínez. . Referring Provider: Joseph Hernandez, [address] [place] [address] [address], [place], [address]. tel:[phone] [facility] [address] [place], [place] [address], [place], [id number], [place] tel:[phone] [place] No Information Kee Juradoon. . Referring Provider: Joseph Hernandez, [address] [place] [address] [address], [place], [address]. tel:[phone] [facility] [address], [id number], [place] tel:[phone] [place] No Information Teodoro Stein. [address] [facility], [address], [place], [address], [place]. tel:[phone] Referring Provider: Joseph Hernandez, [address] [place] [address] [address], [place], [address]. tel:[phone] [facility] [address], [id number], [place] tel:[phone] [place] No Information Kee Sewon. . Referring Provider: Joseph Hernandez, [address] [place] [address] [address], [place], [address]. tel:[phone] [facility] [facility] [address], [id number], [place] tel:[phone] [place] No Information Saritha Holloway. . Referring Provider: Joseph Hernandez, [address] [place] [address] [address], [place], [address]. tel:[phone], [id number], tel:[phone] [place] No Information Teodoro Stein. [address] [facility], [address], [place], [address], [place]. tel:[phone] Referring Provider: Joseph Hernandez, [address] [place] [address] [address], [place], [address]. tel:[phone] [facility] [address], [id number], tel:[phone] [place] No Information Teodoro Stien. [address] [facility], [address], [place], [address], [place]. tel:[phone] Referring Provider: Joseph Hernandez, [address] [place] [address] [address], [place], [address]. tel:[phone] [facility] [address] [facility] [address] [place] [address], [id number], tel:[phone] [place] No Information Nicholas Taveras. . Referring Provider: Joseph Hernandez, [address] [place] [address] [address], [place], [address]. tel:[phone] [facility] [facility] [address], [place], [id number], [place] tel:[phone] [place] No Information Saritha Holloway. . Referring Provider: Joseph Hernandez, [address] [place] [address] [address], [place], [address]. tel:[phone] [facility] [facility] [address], [place], [id number], tel:[phone] [place] No Information Saritha Holloway. . Referring Provider: Joseph Hernandez, [address] [place] [address] [address], [place], [address]. tel:[phone] [facility] [address] [facility] [address], [place], [place], [id number], tel:[phone] [place] No Information Teodoro Stein. [address] [facility], [address], [place], [address], [place]. tel:[phone] Referring Provider: Joseph Hernandez, [address] [place] [address] [address], [place], [address]. tel:[phone] [facility] [address] [facility] [address], [place], [place], [id number], [place] tel:[phone] [place] No Information Chapincito Queen. . Referring Provider: Joseph Hernandez, [address] [place] [address] [address], [place], [address]. tel:[phone] [facility] [address] [facility] [address], [id number], [place] tel:[phone] [place] No Information Teodoro Stein. [address] [place] [address], [address], [place], [address], [place]. tel:[phone] Referring Provider: Joseph Hernandez, [address] [place] [address] [address], [place], [address]. tel:[phone] [facility] [address] [facility] [address], [place], [place], [id number], [place] tel:[phone] [place] No Information Teodoro Stein. [address] [place] [address], [address], [place], [address], [place]. tel:[phone] Referring Provider: Joseph Hernandez, [address] [place] [address] [address], [place], [address]. tel:[phone] [place] [address], [id number], tel:[phone] [place] No Information Teodoro Stein. [address] [place] [address], [address], [place], [place], [facility], . tel:[phone] Referring Provider: Joseph Hernandez, [address] [place] [address] [address], [place], [address]. tel:[phone] [address], [place], [place], [id number], tel:[phone] [place] No Information Teodoro Stein. [address] [place] [address], [address], [place], [facility], [place]. tel:[phone] Referring Provider: Joseph Hernandez, [address] [place] [address] [address], [place], [address]. tel:[phone] [address], [place], [place], [id number], [place] tel:[phone] [place] No Information Saritha Holloway. . Referring Provider: Joseph Hernandez, [address] [place] [address] [address], [place], [address]. tel:[phone], [id number], tel:[phone] [place] No Information Chapincito Queen. . Referring Provider: Joseph Hernandez, [address] [place] [address] [address], [place], [address]. tel:[phone] [address], [place], [place], [id number], tel:[phone] [place] No Information Teodoro Stein. [address] [place] [address], [address], [place], [place], [facility], [place]. tel:[phone] Referring Provider: Joseph Hernandez, [address] [place] [address] [address], [place], [address]. tel:[phone], [id number], tel:[phone] [place] No Information Teodoro Stein. [address] [facility], [address], [place], [address], [place]. tel:[phone] Referring Provider: Joseph Hernandez, [address] [place] [address] [address], [place], [address]. tel:[phone], [id number], tel:[phone] [place] No Information Teodoro Stein. [address] [place] [address], [address], [place], [facility], [place]. tel:[phone] Referring Provider: Joseph Hernandez, [address] [place] [address] [address], [place], [address]. tel:[phone], [id number], tel:[phone] [place] No Information Teodoro Stein. [address] [place] [address], [address], [place], [address], [place]. tel:[phone] Referring Provider: Joseph Hernandez, [address] [place] [address] [address], [place], [address]. tel:[phone], [id number], tel:[phone] [place] No Information Teodoro Stein. [address] [place] [address], [address], [place], [address], [place]. tel:[phone] Referring Provider: Joseph Hernandez, [address] [place] [address] [address], [place], [address]. [phone], [id number], tel:[phone] [place] No Information Chapincito Queen. . Referring Provider: Joseph Hernandez, [address] [place] [address] [address], [place], [address]. tel:[phone], [id number], [place] tel:[phone] [place] No Information Teodoro Stein. [address] [place] [address], [address], [place], [facility], . tel:[phone] Referring Provider: Joseph Hernandez, [address] [place] [address] [address], [place], [address]. [phone], [id number], [place] tel:[phone] [place] No Information Teodoro Stein. [address] [place] [address], [address], [place], [facility], . tel:[phone] Referring Provider: Joseph Hernandez, [address] [place] [address] [address], [place], [address]. tel:[phone], [id number], [place] tel:[phone] [place] No Information Teodoro Stein. [address] [facility], [address], [place], [place], [facility], . tel:[phone] Referring Provider: Joseph Hernandez, [address] [place] [address] [address], [place], [address]. tel:[phone] [address], [place], [place], [id number], tel:[phone] [place] No Information Chapincito Queen. . Referring Provider: Joseph Hernandez, [address] [place] [address] [address], [place], [address]. tel:[phone], [id number], tel:[phone] [place] No Information Teodoro Stein. [address] [place] [address], [address], [place], [address], [place]. tel:[phone] Referring Provider: Joseph Hernandez, [address] [place] [address] [address], [place], [address]. tel:[phone], [id number], tel:[phone] [place] No Information Teodoro Stein. [address] [place] [address], [address], [place], [address], [place]. tel:[phone] Referring Provider: Joseph Hernandez, [address] [place] [address] [address], [place], [address]. tel:[phone], [id number], tel:[phone] [place] No Information Teodoro Stein. [address] [place] [address], [address], [place], [address], [place]. tel:[phone] Referring Provider: Joseph Hernandez, [address] [place] [address] [address], [place], [address]. tel:[phone] [address], [place], [id number], tel:[phone] [place] No Information Teodoro Stein. [address] [place] [address], [address], [place], [address], [place]. tel:[phone] Referring Provider: Joseph Hernandez, [address] [place] [address] [address], [place], [address]. tel:[phone] [facility] [facility] [address], [place], [place], [id number], tel:[phone] [place] No Information Garrels Bernice. . Referring Provider: Joseph Hernandez, [address] [place] [address] [address], [place], [address]. tel:[phone] [facility] [address] [facility] [address], [place], [place], [id number], tel:[phone] [place] No Information Garrels Bernice. . Referring Provider: Joseph Hernandez, [address] [place] [address] [address], [place], [address]. tel:[phone] [facility] [address] [facility] [address], [place], [place], [address], [place] tel:[phone] [place] No Information Teodoro Stein. [address] [place] [address], [address], [place], [facility], . tel:[phone] Referring Provider: Joseph Hernandez, [address] [place] [address] [address], [place], [address]. tel:[phone] [facility] [address] [facility] [address], [place], [place], [id number], [place] tel:[phone] [place] No Information Teodoro Stein. [address] [facility], [address], [place], [address], . tel:[phone] Referring Provider: Joseph Hernandez, [address] [place] [address] [address], [place], [address]. tel:[phone] [facility] [facility] [address], [place], [id number], tel:[phone] [place] No Information Saritha Holloway. . Referring Provider: Joseph Hernandez, [address] [place] [address] [address], [place], [address]. tel:[phone], [id number], tel:[phone] [place] No Information Teodoro Stein. [address] [facility], [address], [place], [address], [place]. tel:[phone] Referring Provider: Joseph Hernandez, [address] [place] [address] [address], [place], [address]. tel:[phone], [id number], tel:[phone] [place] No Information Teodoro Stein. [address] [place] [address], [address], [place], [address], [place]. tel:[phone] Referring Provider: Joseph Hernandez, [address] [place] [address] [address], [place], [address]. tel:[phone], [id number], tel:[phone] [place] No Information Teodoro Stein. [address] [facility], [address], [place], [address], [place]. tel:[phone] Referring Provider: Joseph Hernandez, [address] [place] [address] [address], [place], [address]. tel:[phone], [id number], tel:[phone] [place] No Information Chapincito Queen. . Referring Provider: Joseph Hernandez, [address] [place] [address] [address], [place], [address]. tel:[phone] [facility], [address] [facility] [address], [place], [place], [id number], [place] tel:[phone] [place] No Information Saritha Holloway. . Referring Provider: Joseph Hernandez, [address] [facility] [address], [place], [address]. tel:[phone] Family History Family Member Type Diagnosis Age At Onset No Information Payers Payer name Insurance type Covered republican ID Authoriza tion(s) [place] [id number] [facility] [id number] Social History Type Description Quantity Date Captured Comments Sex Male Smoking Status No Information Chief Complaint And Reason For Visit No Information Reason For Referral Reason For Referral No Information Plan Of Treatment Date Type Action Status Referral Ordered: Referrals: Specialist. Evaluate and Treat (related to Adjustment disorder with depressed mood) ordered Referral Ordered: Depression: Depression management program timeframe: 1 Day. (related to Depression) ordered Referral Ordered: Clinical Psychology (related to Depression) ordered Appointment Nicolas Dye BOOKED Appointment Nicolas Dye BOOKED Appointment Nicolas Dye BOOKED Appointment Nicolas Dye BOOKED History Of Present Illness Encounter Date Complaint History Of Prese nt Illness No Information Functional Status Date Functional Assessmen t No Information Instructions Date Instruction Additional Infor mation Giving encouragement to exercise Related to Overweight Giving encouragement to exercise Related to Overweight Assessments Type Assessment Date No Information Patient Care Teams Name Effective Dates (start - stop) Status Members No Information
--- OUTSIDE RECORDS SUMMARY | 2025-03-03 10:33 | XMS_ITS | Clinical Summary ---
Author Organization [facility] Address [address] [place] [address] Phone Care Team Providers Care Oven Technician Name Role Phone Darin Francis MD Primary Care Provider [phone] Allergies No known active allergies Medications amLODIPine (NORVASC) 5 MG Tablet 03/15/2023 Active finasteride (PROSCAR) 5 MG Tablet Take 5 mg by mouth daily. 03/16/2023 Active terazosin (HYTRIN) 10 MG Capsule 04/23/2023 Active clonazePAM (KlonoPIN) 0.5 MG Tablet 04/20/2023 Active buPROPion (WELLBUTRIN) 75 MG Tablet Take 75 mg by mouth 2 times daily. 04/11/2023 Active folic acid (FOLVITE) 1 MG Tablet Take 1,000 mcg by mouth daily. 04/07/2023 Active gabapentin (NEURONTIN) 100 MG Capsule TAKE 1 CAPSULE BY MOUTH NIGHTLY 04/11/2023 Active hydroxychloroqu ine (PLAQUENIL) 200 MG Tablet 04/23/2023 Activ e isoniazid (NYDRAZID) 300 MG Tablet Take 300 mg by mouth daily. 04/09/2023 Active methotrexate 2.5 MG Tablet TAKE 8 TABLETS (20 MG TOTAL) BY MOUTH EVERY 7 DAYS Mondays04/20/2023 Active Vitamin B-6 (PYRIDOXINE) 50 MG Tablet 03/08/2023 Active Ranolazine 1000 MG TABLET SR 12 HR 04/25/2023 Active predniSONE (DELTASONE) 1 MG Tablet Take by mouth daily. Active oxyCODONE (ROXICODONE) 5 MG TabletIndicatio ns:Closed fracture of head of left humerus Take 1 Tablet by mouth every 4 hours as needed for Moderate or more severe pain. 20 Tablet 04/29/2023 Active Encounters Date Type Department Care Team Description 01/08/2025 9:24 AM CDT - 01/08/2025 3:35 PM CDT Emergency [facility] Emergency [address] [place] [address] Jose De Jesus MD Constipation, unspecified constipation type Discharge Disposition: Discharged to home or Selfcare 01/08/2025 Travel from Last 3 Months Social History Tobacco Use Types Packs/Day Years Used Date Smoking Tobacco: Never Smokeless Tobacco: Never Tobacco Cessation:Counseling Given: Not Answered Sex and Gender Information Value Date Recorded Sex Assigned at Not on file Legal Sex Male 11:54 PM CDT Gender Identity Not on file Sexual Orientation Not on file Last Filed Vital Signs Vital Sign Reading Time Taken Comments Blood Pressure 171/73 01/08/2025 3:15 PM CDT Pulse 89 01/08/2025 3:15 PM CDT Temperature 36.3 C (97.3 F) 01/08/2025 1:02 PM CDT Respiratory Rate 18 01/08/2025 9:37 AM CDT Oxygen Saturation 94% 01/08/2025 3:15 PM CDT Inhaled Oxygen Concentration - - Weight 98.4 kg (217 lb) 01/08/2025 9:37 AM CDT Height 193 cm (6' 4 ) 01/08/2025 9:37 AM CDT Body Mass Index 26.41 01/08/2025 9:37 AM CDT Plan of Treatment Health Maintenance Due Date Last Done Comments Hepatitis C Virus (HCV) Screening 1945 SARS-COV-2 Immunization ( season) 2024 08/01/2023, 09/20/2022, 05/17/2022, Additional history exists DTaP/Tdap/Td Immunization Discontinued 10/03/2022 TdaP Immunization Completed 10/03/2022 Respiratory Syncytial Virus (RSV) Immunization (Adult) Completed 08/22/2023 Pneumococcal Immunization (50+ years) Completed 10/25/2023, 07/11/2020, 08/05/2017 Zoster Immunization Completed 12/20/2023, 3 Influenza Immunization Completed 4, 07/15/2023, 09/20/2022, Additional history exists Hepatitis B Immunization Aged Out No longer eligible based on patient's age to complete this topic Meningococcal Immunization (ACWY) Aged Out No longer eligible based on patient's age to complete this topic Rotavirus Immunization Aged Out No lo nger eligible based on patient's age to complete this topic Procedures Procedure Name Priority Date/Time Associated Diagnosis Comments XR ABDOMEN KUB FLAT PLATE STAT 01/08/2025 1:55 PM CDT from Last 3 Months Results * XR ABDOMEN KUB FLAT PLATE (01/08/2025 1:55 PM CDT) Anatomical Region Laterality Modality Abdomen N/A Digital Radiogra phy 01/08/2025 2:54 PM CDT Impressions 01/08/2025 2:57 PM CDT IMPRESSION: Large left colonic stool burden up to the rectum. Narrative 01/08/2025 2:57 PM CDT EXAM DESCRIPTION: XR ABDOMEN KUB FLAT PLATE REASON FOR STUDY: constipation x 3 days- abdominal tightness x 3 days- stool impaction- HX appendectomy, prostate shaved TECHNIQUE: 2 radiographic view of the abdomen. COMPARISON: None FINDINGS: BOWEL: Nonobstructive gas pattern. Large left colonic stool burden up to the rectum. SOFT TISSUES: No abnormal calcifications. LINES/TUBES: None. BONES: No acute osseous abnormality. THIS IS AN ELECTRONICALLY VERIFIED FINAL REPORT 01/08/2025 2:54 PM - Electronically signed by Constanza Fernández M.D. FT: FT Report ID: [id number] Reading Location: [id number] Procedure Note Constanza Narayanan MD - 01/08/2025 EXAM DESCRIPTION: XR ABDOMEN KUB FLAT PLATE REASON FOR STUDY: constipation x 3 days- abdominal tightness x 3 days- stool impaction- HX appendectomy, prostate shaved TECHNIQUE: 2 radiographic view of the abdomen. COMPARISON: None FINDINGS: BOWEL: Nonobstructive gas pattern. Large left colonic stool burden up to the rectum. SOFT TISSUES: No abnormal calcifications. LINES/TUBES: None. BONES: No acute osseous abnormality. THIS IS AN ELECTRONICALLY VERIFIED FINAL REPORT 01/08/2025 2:54 PM - Electronically signed by Constanza Fernández M.D. FT: FT Report ID: [id number] Reading Location: [id number] IMPRESSION: Large left colonic stool burden up to the rectum. Jose De Jesus MD IMG DIAGNOSTIC ORDERABLES Final Result from Last 3 Mon[address]IC[address] [facility] MEDICARE [facility] [address] Care Teams Oven Technician Relationship Specialty [place] [address] [phone] PCP - General Internal Medicine 04/28/23
--- OUTSIDE RECORDS SUMMARY | 2025-03-03 10:33 | XMS_ITS | Encounter Summary ---
Author Organization [facility] Address [address] [facility] [place] [address] Care Team Providers Care First Coat Operator Name Role Phone Darin Francis MD Primary Care Provider [phone] Encounter Details Date Type Department Care Team (Late st Contact Info) Description 12/17/2022 Lab Requisition [facility] Care DermPath Lab [address] [facility] [place] [address] Silver Rain MD [address] [place] [address] Social History Tobacco Use Types Packs/Day Years Used Date Smoking Tobacco: Former Cigarettes 1 20 968 - 1987 Smokeless Tobacco: Former Chew Comments:used for a few kannan hes after quitting smoking Alcohol Use Standard Drinks/Week Comments Yes 14 (1 standard drink = 0.6 oz pu re alcohol) 3 beers a day Sex and Gender Information Value Date Recorded Sex Assigned at Not on file Legal Sex Male 4:25 PM CDT Gender Identity Not on file Sexual Orientation Not on file documented as of this encounter Functional Status * Is person deaf or have serious hearing difficulty? Answer Date of Assessment Author No 05/06/2022 1:03 PM CDT Polly Duke RN * Is person blind or have serious difficulty seeing? Answer Date of Assessment Author No 05/06/2022 1:03 PM CDT Polly Duke RN * Does person have serious difficulty walking/climbing stairs? Answer Date of Assessment Author No 05/06/2022 1:03 PM CDT Polly Duke RN * Does person have difficulty dressing/bathing? Answer Date of Assessment Author No 05/06/2022 1:03 PM CDT Polly Duke RN * Does person have difficulty doing errands alone? Answer Date of Assessment Author No 05/06/2022 1:03 PM CDT Polly Duke RN documented as of this encounter Mental Status * Does person have difficulty concentrating/remembering/making decisions? Answer Entry Date Author No 05/06/2022 1:03 PM BEBOT Polly Duke RN documented in this encounter Plan of Treatment Upcoming Encounters Date Type Department Care Team (Late st Contact Info) Description 04/08/2025 2:00 PM CDT Office Visit [facility] - General Surgery [address] [place] [address] Jourdan Langford MD [address] [facility] [address] [place] [address] documented as of this encounter Procedures Procedure Name Priority Date/Time Associated Diagnosis Comments DERMATOPATHOLOGY Routine 12/15/2022 12:0 0 AM SIGN CARPENTER documented in this encounter Results * DERMATOPATHOLOGY (12/15/2022 12:00 AM SIGN CARPENTER) Case Report Dermatopathology Report Case: [id number] Authorizing Provider: Silver Rain MD Collected: 12/15/2022 12:00 AM Ordering Location: [facility] DermPath Lab Received: 12/17/2022 08:32 AM Pathologist: Salina Moe MD Specimens: A) - Skin, left post shoulder B) - Skin, right post shoulder 1:54 PM SIGN CARPENTER DERMATOPATHOLOGY LABORATORY Final Diagnosis Specimen A. SKIN, left post shoulder: EPIDERMOID CYST (L72.0) Specimen B. SKIN, right post shoulder: BENIGN VERRUCOUS KERATOSIS (L82.1) OVERLYING CUTANEOUS HORN (L85.8) 1:54 PM [facility] DERMATOPATHOLOGY LABORATORY Clinical History A: papule great comedome B: papule SK 1:54 PM [facility] DERMATOPATHOLOGY LABORATORY Gross Description Specimen A: Received is one formalin filled container labeled with the patient's name and designated left post shoulder. The specimen consists of a shave biopsy measuring 8x6x3 mm. Jar 0. Specimen B: Received is one formalin filled container labeled with the patient's name and designated right post shoulder. The specimen consists of a shave biopsy measuring 7x7x2 mm. Jar 0. 1:54 PM [facility] DERMATOPATHOLOGY LABORATORY Microscopic Description Specimen A. SKIN, left post shoulder: Within the dermis, there is a space lined by epithelium that resembles normal epidermis and the infundibular portion of the hair follicle. Specimen B. SKIN, right post shoulder: Sections show hyperkeratosis, papillomatosis, hypergranulosis, and acanthosis. These histological findings can be seen in a verruca vulgaris or a seborrheic keratosis. There is a column of marked compact hyperkeratosis. 1:54 PM [facility] DERMATOPATHOLOGY LABORATORY Disclaimer An external and internal positive and negative controls are appropriate for the histochemical, immunohistochemical and immunofluorescence stain(s) in this case (if any), except where stated explicitly. The performance characteristics of the stain(s) cited in this report were developed and its performance characteristic determined by the Dermatopathology Laboratory at [facility], directed by Dr. Guanaco Lainez. These tests need not be, and therefore are not, approved by the [place] Food and Drug Administration. The tests are used for clinical purposes. Billing Codes Specimen Charges Stain Charges 42153 68390 1 1 1:54 PM [facility] DERMATOPATHOLOGY LABORATORY Embedded Images 1:54 PM [facility] DERMATOPATHOLOGY LABORATORY Pathology/Cytology TISSUE SPECIMEN FROM SKIN / Unknown 12/15/2022 12/17/2022 8:32 AM SIGN CARPENTER Miscellaneous samples (specimen) TISSUE SPECIMEN FROM SKIN / Unknown 12/15/2022 12/17/2022 8:32 AM SIGN CARPENTER us Silver Rain MD LAB - PATHOLOGY/CYTOLOGY ORDERAB LES Final Result DERMATOPATHOLOGY LABORATORY [facility] - Department of Dermatology [place] [address] [facility], 3rd Floor [place], [place] [address] [place] [address] documented in this encounter Visit Diagnoses Not on filedocumented in this encounter Care Teams First Coat Operator Relationship Specialty [place] [address] [address] [facility] [address] [place] [address] PCP - General Internal Medicine 02/12/22 documented as of this encounter
--- OUTSIDE RECORDS SUMMARY | 2025-03-03 10:33 | XMS_ITS | Encounter Summary ---
Author Organization [facility] Address [address] [place] [address] Care Team Providers Care Soft Shoe Dancer Name Role Phone Darin Francis MD Primary Care Provider [phone] Encounter Details Date Type Department Care Team (Late st Contact Info) Description 05/25/2023 Lab Requisition [facility] - DermPath Lab [address] [facility] [place] [address] Silver Rain MD [address] [place] [address] Social History Tobacco Use Types Packs/Day Years [...] Entry Date Author No 05/06/2022 1:03 PM CDT Polly Duke RN documented in this encounter Plan of Treatment Upcoming Encounters Date Type Department Care Team (Late st Contact Info) Description 04/08/2025 2:00 PM CDT Office Visit [facility] - General Surgery [address] [place] [phone] Jourdan Langford MD [address] [facility] [address] [place] [address] documented as of this encounter Procedures Procedure Name Priority Date/Time Associated Diagnosis Comments DERMATOPATHOLOGY Routine 05/25/2023 12:0 0 AM CDT documented in this encounter Results * DERMATOPATHOLOGY (05/25/2023 12:00 AM CDT) Case Report Dermatopathology Report Case: [id number] Authorizing Provider: Silver Rain MD Collected: 05/25/2023 12:00 AM Ordering Location: [facility] DermPath Lab Received: 05/25/2023 03:33 PM Pathologist: Galilea Lima MD Specimen: Skin, post neck 3 3:08 PM CDT DERMATOPATHOLOGY LABORATORY Final Diagnosis Specimen A. SKIN, post neck: SUPERFICIAL AND DEEP PERIVASCULAR AND INTERSTITIAL MIXED INFILTRATE WITH ABSCESS FORMATION (L02.91) (see microscopic description and comment) 3 3:08 PM CDT DERMATOPATHOLOGY LABORATORY Clinical History Cyst vs Neoplasia 3 3:08 PM CDT DERMATOPATHOLOGY LABORATORY Gross Description Specimen A: Received is one formalin filled container labeled with the patient's name and designated post neck. The specimen consists of a punch biopsy measuring 4x4x7 mm and it is bisected. Jar 0. 3 3:08 PM CDT DERMATOPATHOLOGY LABORATORY Microscopic Description Specimen A. SKIN, post neck: Epidermis, dermis, and superficial portions of subcutaneous tissue are present for evaluation. Sections show superficial and deep perivascular and interstitial mixed infiltrate composed of numerous neutrophils, scattered lymphocytes, and histiocytes. Focal abscess formation is present. Tissue gram stain highlights scattered bacteria in association with a follicular infundibulum. Tissue Gram stain is negative for bacteria in the sections examined. IVETTE stain is negative for acid-fast mycobacteria in the sections examined. MART-1/Melan-A staining highlights regular periodicity of melanocytes along the dermoepidermal junction. Additional deeper sections were obtained and reviewed. COMMENT: The histologic differential diagnosis includes a ruptured follicle or cyst, and an infectious process. Clinical correlation with culture is recommended if clinically indicated. 3 3:08 PM CDT DERMATOPATHOLOGY LABORATORY Disclaimer An external and internal positive and negative controls are appropriate for the histochemical, immunohistochemical and immunofluorescence stain(s) in this case (if any), except where stated explicitly. The performance characteristics of the stain(s) cited in this report were developed and its performance characteristic determined by the Dermatopathology Laboratory at [facility], directed by Dr. Guanaco Lainez. These tests need not be, and therefore are not, approved by the [place] Food and Drug Administration. The tests are used for clinical purposes. Billing Codes Specimen Charges Stain Charges 79742 1 68003 73069 68214 61524 1 1 1 1 3 3:08 PM CDT DERMATOPATHOLOGY LABORATORY Embedded Images 3 3:08 PM CDT DERMATOPATHOLOGY LABORATORY Pathology/Cytolog y TISSUE SPECIMEN FROM SKIN / Unknown 05/25/2023 05/25/2023 3:33 PM CDT Silver Rain MD LAB - PATHOLOGY/CYTOLOGY ORDERAB LES Final Result DERMATOPATHOLOGY LABORATORY [facility] - Department of Dermatology [facility] [address] [facility]rd [address] [phone] documented in this encounter Visit Diagnoses Not on filedocumented in this encounter Care Teams Soft Shoe Dancer Relationship Specialty [place] [address] [address] [facility] [address] [place] [address] PCP - General Internal Medicine 02/12/22 documented as of this encounter
--- OUTSIDE RECORDS SUMMARY | 2025-03-03 10:33 | XMS_ITS | Encounter Summary ---
Author Organization [facility] Address [address] [facility] [place] [address] Care Team Providers Care Service Sprinkler Helper Name Role Phone Darin Francis MD Primary Care Provider [phone] Encounter Details Date Type Department Care Team (Late st Contact Info) Description 01/21/2022 Lab Requisition [facility] [address] [facility] [place] [phone] Silver Rain MD [address] [place] [address] Social History Tobacco Use Types Packs/Day Years Used Date Smoking Tobacco: Never Assessed Sex and Gender Information Value Date Recorded Sex Assigned at Not on file Legal Sex Male 4:25 PM CDT Gender Identity Not on file Sexual Orientation Not on file documented as of this encounter Plan of Treatment Upcoming Encounters Date Type Department Care Team (Late st Contact Info) Description 04/08/2025 2:00 PM CDT Office Visit [facility] - General Surgery [address] [place] [phone] Jourdan Langford MD [address] [phone] documented as of this encounter Procedures Procedure Name Priority Date/Time Associated Diagnosis Comments DERMPATH SLIDE CONSULT Routine 01/21/2022 12:00 AM CDT documented in this encounter Results * DERMPATH SLIDE CONSULT (01/21/2022 12:00 AM CDT) Case Report Dermatopathology Report Case: [id number] Authorizing Provider: Silver Rain MD Collected: 01/21/2022 12:00 AM Ordering Location: [facility] DermPath Lab Received: 01/21/2022 11:15 AM Pathologist: Galilea Lima MD Specimen: Slide(s), Post neck, [id number]# [id number] 2 1:41 PM CDT DERMATOPATHOLOGY LABORATORY Final Diagnosis Specimen A. Slide(s), Post neck, OSC# [id number]: MALIGNANT MELANOMA (C43.4) BRESLOW THICKNESS 2.9 MM, CHAUNCEY LEVEL IV. PRESENT AT MARGIN DERMAL FIBROSIS (L90.5) (see microscopic description and synoptic report) 2 1:41 PM CDT DERMATOPATHOLOGY LABORATORY Clinical History Materials received from: [facility] [address] [place] [address] Received at the request of Dr. Silver Rain, a consult will be performed on 1 (H&E) slide(s) labeled [id number]. Bx Date: 01/13/2022 Scar vs other neoplasia. All slides returned. Any additional sections, special stains or immunohistochemical stains performed by our laboratory will be kept here on file. 2 1:41 PM CDT DERMATOPATHOLOGY LABORATORY Microscopic Description Specimen A. Slide(s), Post neck, OSC# [id number]: Sections show a proliferation of melanocytes with spindled cell morphology arranged predominantly in sheets within the dermis. A definitive intraepidermal component is not identified. There is focal dermal fibrosis. The hematoxylin and eosin stain is reviewed; immunohistochemical stains are performed to further assess the histologic features. Lesional cells are positive for SOX10 and S100. They do not show significant staining for MART-1/Melan-A, HMB-45, or desmin. Lesional cells show weak patchy positivity for SMA and CD34. This lesion is present at the margin of the specimen. 2 1:41 PM T DERMATOPATHOLOGY LABORATORY Disclaimer An external and internal positive and negative controls are appropriate for the histochemical, immunohistochemical and immunofluorescence stain(s) in this case (if any), except where stated explicitly. The performance characteristics of the stain(s) cited in this report were developed and its performance characteristic determined by the Dermatopathology Laboratory at [facility], directed by Dr. Guanaco Lainez. These tests need not be, and therefore are not, approved by the [place] Food and Drug Administration. The tests are used for clinical purposes. Billing Codes Specimen Charges Stain Charges 24150 1 05603 86178 04796 06411 31451 12712 34892 79966 1 1 1 1 1 1 1 1 2 1:41 PM T DERMATOPATHOLOGY LABORATORY Synoptic Report MELANOMA OF THE SKIN: Biopsy MELANOMA OF THE SKIN: BIOPSY - A 8th Edition - Protocol posted: 04/15/2021 SPECIMEN Procedure: Biopsy, shave Specimen Laterality: Not specified TUMOR Tumor Site: Skin of scalp and neck: Post Neck Histologic Type: Spindled cell Maximum Tumor (Breslow) Thickness (Millimeters): At least: 2.9 mm : Tumor is present at the surgical margin; therefore, the final depth may exceed the current one. Ulceration: Present Anatomic (Chauncey) Level: At least level: IV : Tumor is present at the surgical margin; therefore, the final depth may exceed the current one. Mitotic Rate: 9 mitoses per mm2 Microsatellite(s): Cannot be determined Lymphovascular Invasion: Not identified Neurotropism: Not identified Tumor-Infiltrating Lymphocytes: Present, nonbrisk Tumor Regression: Not identified MARGINS: Margin Status for Invasive Melanoma: Invasive melanoma present at margin Margin(s) Involved by Invasive Melanoma: Deep PATHOLOGIC STAGE CLASSIFICATION (pTNM, AJCC 8th Edition): Reporting of pT categories is based on information available to the pathologist at the time the report is issued. As per the AJCC (Chapter 1, 8th Ed.) it is the managing physician s responsibility to establish the final pathologic stage based upon all pertinent information, including but potentially not limited to this pathology report. pT Category: pT3b Comment(s): This case, as well as the prior biopsy ([id number], [facility], [place], [place]), were also reviewed by Dr. Guanaco Lainez, who agrees. 2 1:41 PM CDT DERMATOPATHOLOGY LABORATORY Embedded Images 2 1:41 PM CDT DERMATOPATHOLOGY LABORATORY Pathology/Cytolog y SLIDE / Unknown 01/21/2022 01/21/2022 11:15 AM CDT Silver Rain MD LAB - PATHOLOGY/CYTOLOGY ORDERAB LES Final Result DERMATOPATHOLOGY LABORATORY [facility] - Department of Dermatology [facility] Specialized Medicine [address] [place] [address], [address] [phone] documented in this encounter Visit Diagnoses Not on filedocumented in this encounter Care Teams Service Sprinkler Helper Relationship Specialty [place] [address] [address] PCP - General Internal Medicine 02/12/22 documented as of this encounter
--- OUTSIDE RECORDS SUMMARY | 2025-03-03 10:33 | XMS_ITS ---
Author Organization [facility] Address [address] [place] [address] Care Team Providers Care Greenhouse Superintendent Name Role Phone Darin Francis MD Primary Care Provider [phone] Active Problems Problem Noted Date Diagnosed Date Metastatic melanoma to lung 05/12/2022 Pre-operative cardiovascular examination 022 Lung nodule 04/15/2022 Periodic limb movement disorder 02/26/2022 Melanoma of neck 02/08/2022 Cancer Staging:Clinical:Stage IIB(cT3b, cN0, cM0) - Unsigned Pathologic stage from 11/01/2022:Stage IV(pT3b, pN0, pM1) - Signed by Jourdan Langford MD on 11/01/2022 Knee stiffness 04/29/2021 Overview (02/26/2022): Last Assessment & Plan: C/o stiffness in bilateral knees when getting up and down. Notes left knee instability when going up and down stairs. Nury pain or swelling. Hx of arthroscopic knee surgeries in the past but denies arthroplasty. Discussed XR to evaluate for DJD however patient is going to f/u with his ortho. Elevated C-reactive protein 11/17/2020 Fatigue 01/23/2019 Overview (02/26/2022): PFT (04/04/19): Although there is airway obstruction and a diffusion defect suggesting emphysema, the absence of overinflation is inconsistent with that diagnosis. Dx: moderate obstructive airways disease; mild diffusion defect. Last Assessment & Plan: Continues to note chest heaviness since 12/2018. Recent PFTs per cardiology showed moderate obstructive airway disease and mild diffuse defect. Advised patient to make a follow up appointment with cardiology to discuss PFT results and any further treatment. Gout 01/24/2018 Osteoarthrosis 01/24/2018 Malaise and fatigue 06/03/2017 Chest pain 04/25/2017 Dyspnea on exertion 04/25/2017 Fibromyalgia 04/25/2017 Primary hypertension 04/25/2017 Low back pain at multiple sites 04/01/2017 Overview (02/26/2022): Low back and buttock pain improved s/p corticosteroid injection per pain management Last Assessment & Plan: Hx of corticosteroid injection per pain management. Has no current pain or stiffness. Benign prostatic hyperplasia 02/15/2017 Major depressive disorder, single episode, moder ate 02/15/2017 Current Treatment and Therapy Plans MELANOMA MET (NIVOLUMAB IPILIMUMAB) Q21 DAYS -> (NIVOLUMAB) Q14 DAYS* Plan Start Date:05/17/2022 Plan Provider:Brandon Ochoa MD Linked Problems Melanoma metastatic to left lung (HCC) Treatment Medications Current Day (Day 1 , Cycle 2 - Planned for 06/23/2022) Next Day (Day 1, Cycle 3 - Planned for 07/14/2022) ipilimumab (Yervoy)ipilimumab (Yervoy) infusion 167-333 mgnivolumab (Opdivo) infusion ipilimumab (Yervoy) 300 mg in 0.9% NaCl IV 160 mL infusionnivolumab (Opdivo) 100 mg in 0.9% NaCl IV 60 mL infusion ipilimumab (Yervoy) 300 mg in 0.9% NaCl IV 160 mL infusionnivolumab (Opdivo) 100 mg in 0.9% NaCl IV 60 mL infusion Past Treatment and Therapy Plans No past plan information found. Lifetime Dose Tracking * Chemical Lifetime Dose Automatic Entry Manual Entr y Dose Length Product 1,020 mGy-cm 1,020 mGy-cm 0 mGy-cm
--- OUTSIDE RECORDS SUMMARY | 2025-03-03 10:33 | XMS_ITS | Encounter Summary ---
Author Organization [facility] Address [address] [place] [address] Care Team Providers Care Scale Manager Name Role Phone Darin Francis MD Primary Care Provider [phone] Encounter Details Date Type Department Care Team (Late st Contact Info) Description 03/20/2024 Lab Requisition [facility] - DermPath Lab [address], [facility] [place] [address] Silver Rain MD [address] [place] [address] Social History Tobacco Use Types Packs/Day Years [...] Description 04/08/2025 2:00 PM CDT Office Visit [facility] Physician [facility] - General Surgery [address] [place] [phone] Jourdan Langford MD [address] [place] [address] documented as of this encounter Procedures Procedure Name Priority Date/Time Associated Diagnosis Comments DERMATOPATHOLOGY Routine 03/19/2024 12:0 0 AM CDT documented in this encounter Results * DERMATOPATHOLOGY (03/19/2024 12:00 AM CDT) Case Report Dermatopathology Report Case: [id number] Authorizing Provider: Silvre Rain MD Collected: 03/19/2024 12:00 AM Ordering Location: [facility] - Received: 03/20/2024 03:48 PM DermPath Lab Pathologist: Angeles Lainez MD Specimens: A) - Skin, right mid abdomen B) - Skin, left anterior tibial C) - Skin, lower mid back 2:57 PM CDT DERMATOPATHOLOGY LABORATORY Final Diagnosis Specimen A. 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 SKIN, lower mid back: BASAL CELL CARCINOMA, NODULAR TYPE (C44.519) PRESENT AT MARGIN 2:57 PM T DERMATOPATHOLOGY LABORATORY Clinical History A-B: r/o MM. Check margins. C: r/o BCC, SCC. Check margins. 2:57 PM T DERMATOPATHOLOGY LABORATORY Gross Description Specimen A: Received is one formalin filled container labeled with the patient's name and designated right mid abdomen. The specimen consists of a shave biopsy measuring 8x7x1, 6x5x1 mm. Jar 0. Specimen B: Received is one formalin filled container labeled with the patient's name and designated left anterior tibial. The specimen consists of a shave biopsy measuring 9x8x1 mm. Jar 0. Specimen C: Received is one formalin filled container labeled with the patient's name and designated lower mid back. The specimen consists of a shave biopsy measuring 00v30h3 mm. Jar 0. 2:57 PM T DERMATOPATHOLOGY LABORATORY Microscopic Description Specimen A. SKIN, right mid abdomen: The specimen is fragmented. There is a lentiginous proliferation of melanocytes between nevus nests of cells along the dermal-epidermal junction. There is underlying lamellar fibroplasia of the papillary dermis. The intradermal component is bland in appearance and matures with depth. (Compound Chauncey's Nevus) Sections also show a perifollicular lymphohistiocytic infiltrate. COMMENT: If this specimen is sampled from a larger lesion, these findings may not be car sales representative of the entire lesion. Clinicopathologic correlation is recommended. Specimen B. SKIN, left anterior tibial: There is epidermal hyperplasia. Within the dermis, there are fibrohistiocytic cells in haphazard array among coarse collagen bundles. In addition, there are vascular channels surrounded by histiocytes that contain hemosiderin and foam cells. Specimen C. SKIN, lower mid back: Within the dermis there are aggregates of basaloid cells with a high nuclear to cytoplasmic ratio and peripheral palisading. This lesion is present at the margin of the specimen. 06/06/202 4 2:57 PM CDT DERMATOPATHOLOGY LABORATORY Disclaimer An external and internal positive and negative controls are appropriate for the histochemical, immunohistochemical and immunofluorescence stain(s) in this case (if any), except where stated explicitly. The performance characteristics of the stain(s) cited in this report were developed and its performance characteristic determined by the Dermatopathology Laboratory at [facility], directed by Dr. Guanaco Lainez. These tests need not be, and therefore are not, approved by the [place] Food and Drug Administration. The tests are used for clinical purposes. Billing Codes Specimen Charges Stain Charges 97557 75093 15227 1 1 1 4 2:57 PM CDT DERMATOPATHOLOGY LABORATORY Embedded Images 4 2:57 PM CDT DERMATOPATHOLOGY LABORATORY Pathology/Cytology TISSUE SPECIMEN FROM SKIN / Unknown 03/19/2024 03/20/2024 3:48 PM CDT Miscellaneous samples (specimen) TISSUE SPECIMEN FROM SKIN / Unknown 03/19/2024 03/20/2024 3:48 PM CDT Miscellaneous samples (specimen) TISSUE SPECIMEN FROM SKIN / Unknown 03/19/2024 03/20/2024 3:48 PM CDT Silver Rain MD LAB - PATHOLOGY/CYTOLOGY ORDERAB LES Final Result DERMATOPATHOLOGY LABORATORY [facility] - Department of Dermatology [address] [phone] documented in this encounter Visit Diagnoses Not on filedocumented in this encounter Care Teams Scale Manager Relationship Specialty [place] [address] [facility] [address] [place] [phone] PCP - General Internal Medicine 02/12/22 documented as of this encounter
--- OUTSIDE RECORDS SUMMARY | 2025-03-03 10:33 | XMS_ITS | Clinical Summary ---
Author Organization [facility] Address [address] [place] [address] Care Team Providers Care Air [employer] Senior Officer Name Role Phone Darin Francis MD Primary Care Provider [phone] Source Comments [facility],non-owned Affiliates and Associated Physician Practices is amultiple site organization consisting of ambulatory clinics and hospital sitesin [place], [place], [place] and [place]. This disclosure is being madepursuant to the Care Everywhere program and may not contain all information available regarding this patient. Last updated 18.[facility] Allergies No known active allergies Medications * Be aware that medications may not be up to date on this document. Alwaysverify current medications with the patient. amLODIPine (NORVASC) 5 MG tablet Take by mouth every 24 hours 2 Active clonazePAM (KLONOPIN) 0.5 MG tablet TAKE 1 TABLET BY MOUTH EVERY DAY AT BEDTIME 2 Active finasteride (PROSCAR) 5 MG tablet Take 1 (one) tablet by mouth once daily 2 Active terazosin (HYTRIN) 10 MG capsule Take 1 (one) capsule by mouth once daily 2 Active Multiple Vitamin (MULTI-VITAMIN DAILY PO) Take by mouth once daily Active VITAMIN D PO Take 1,000 mg by mouth once daily Active Docusate Calcium (STOOL SOFTENER PO) Take by mouth as needed Active Misc Natural Products (OSTEO BI-FLEX JOINT SHIELD PO) Take by mouth 2 times daily Active buPROPion (WELLBUTRIN) 75 MG tablet Take 1 (one) tablet by mouth 2 times daily 1 Active ranolazine ER 12hr (RANEXA) 1000 MG tablet Take 1 (one) tablet by mouth once daily 2 Active loratadine (CLARITIN) 10 MG tablet Take 1 (one) tablet by mouth once daily Active pantoprazole EC (Protonix) 40 MG tabletIndicatio ns:Melanoma of neck (HCC) Take 1 (one) tablet by mouth once daily 30 tablet 2 Active methotrexate (Rheumatrex) 2.5 MG tablet 2 Active pramipexole (Mirapex) 0.25 MG tablet Take 1 (one) tablet by mouth at bedtime 4 Active hydroxychloroqu ine (Plaquenil) 200 MG tablet Take 1 (one) tablet by mouth 2 times daily 3 Active acetaminophen (Tylenol) 500 MG tablet Take 2 (two) tablets by mouth at bedtime Active carbidopa-levod opa (Sinemet) 25-100 MG tablet TAKE 1/2 TABLET BY MOUTH AT 7 AM, 1/2 TAB AT NOON, 1/2 TAB AT 5 PM FOR 2 WEEKS, THEN 1 TAB AT EACH DOSE FOR 2 WEEKS, THEN ONE & ONE-HALF TABS AT EACH DOSE FOR 2 WEEKS, THEN 2 TABS AT EACH DOSE AND CONTINUE Active cetirizine (ZyrTEC) 10 MG tablet CETIRIZINE HCL 10 MG ORAL TABLET Active cycloSPORINE (Restasis) 0.05 % ophthalmic suspension 1 (one) drop by Ophthalmic route every 12 hours 4 Active fluticasone propionate (Flonase) 50 MCG/ACT nasal spray [place] 1 (one) spray into the nose as needed Active folic acid (Folvite) 1 MG tablet Take 1 (one) tablet by mouth once daily 4 Active polyethylene glycol 3350 (Miralax) 17 g packet Take 17 (seventeen) g by mouth every morning Active Active Problems Problem Noted Date Diagnosed Date [...] depressive disorder, single episode, moder ate 02/15/2017 Immunizations Immunization Administration Dates Next Due Covid Moderna primary monova lent 12+ yr 0.5mL 09/07/2021,01/05/2021,12/03/2020 INFLUENZA VACCINE 07/31/2021 Family History Medical History Relation Name Comments Parkinson's Disease Brother Other Father body stopped jay garay blood age 75 Other Mother age 97 Relation Name Status Comments Brother Father Mother Social History Tobacco Use Types Packs/Day Years Used Date Smoking Tobacco: Former Cigarettes 1 20 1 968 1987 Smokeless Tobacco: Former Chew Tobacco Cessation:Counseling Given: Not Answered Comments:used for a few monthes after quitting smoking Alcohol Use Standard Drinks/Week [...] Sign Reading Time Taken Comments Blood Pressure 164/89 10/15/2024 1:34 PM [employer] Pulse 63 10/15/2024 1:34 PM [employer] Temperature 36.5 C (97.7 F) 10/15/2024 1:34 PM [employer] Respiratory Rate 20 06/09/2022 11:09 AM CDT Oxygen Saturation 98% 10/15/2024 1:34 PM [employer] Inhaled Oxygen Concentration - - Weight 101.6 kg (224 lb) 10/15/2024 1:34 PM [employer] Height 193 cm (6' 4 ) 10/15/2024 1:34 PM [employer] Body Mass Index 27.27 10/15/2024 1:34 PM [employer] Plan of Treatment Upcoming Encounters Date Type Department Care Team (Late st Contact Info) Description 04/08/2025 2:00 PM CDT Office Visit [facility] - General Surgery [address] [place] [address] Jourdan Langford MD [address] [facility] [place] [address] Health Maintenance Due Date Last Done Comments MEDICARE AWV 12 MONTHS 1945 HEPATITIS C SCREENING 10/24/1965 DTAP/TDAP/TD VACCINES (1 - Tdap) 1966 PNEUMOCOCCAL VACCINE 50+ (1 of 1 - PCV) 1997 ZOSTER VACCINE (1 of 2) 1997 Respiratory Syncytial Virus (RSV) Vaccine Pt: or over 60 yrs (1 - 1-dose 75+ series) 2022 COVID-19 VACCINE ( season) 2024 09/20/2022, 09/07/2021, 01/05/2021, Additional history exists DEPRESSION SCREENING 10/17/2024 INFLUENZA VACCINE Completed 06/28/2024, , 05/02/2023, Additional history exists HEPATITIS B VACCINE Aged Out No longe r eligible based on patient's age to complete this topic HIB VACCINE Aged Out No longer eligi ble based on patient's age to complete this topic HPV VACCINE Aged Out No longer eligi ble based on patient's age to complete this topic MENINGOCOCCAL (Group B) VACCINE SHARED DECISION-MAKING Aged Out No longer eligible based on patient's age to complete this topic MENINGOCOCCAL GROUPS A/C/Y/W VACCINE Aged Out No longer eligible based on patient's age to complete this topic Insurance MEDICARE [facility] MEDICARE [facility] * Guarantor: WILFRIDO ATKINSON Account Type Relation to Patient Date of Phone Billing Address Personal/Family [address] [phone] MEDICARE [facility] * Guarantor: CHINAWILFRIDO Account Type Relation to Patient Date of Phone Billing Address Personal/Family [address] [place] [phone] MEDICARE Member Subscriber Plan / Payer (Ef fective for All Dates) Name:[place] Wilfrido Grace Member ID:[id number] Relation to Subscriber:Self Name:Wilfrido Atkinson Subscriber ID:[id number] Payer ID:Not on file Group ID:Not on file Type:Medicare Address: [address] [facility] * Guarantor: WILFRIDO ATKINSON Account Type Relation to Patient Date of Phone Billing Address Personal/Family [address] [place] [phone] MEDICARE [facility] Advance Directives Documents on File Type Date Recorded Patient Research Associate Quality Control Qc Expl anation Adv Directive/Living Will/POA 04/05/2022 3:38 PM Adv Directive/Living Will/POA 02/03/2017 Care Teams [employer] Senior Officer Relationship Specialty [place] [address] [place] [address] [phone] PCP - General Internal Medicine 02/12/22
--- OUTSIDE RECORDS SUMMARY | 2025-03-03 10:33 | XMS_ITS | Continuity of Care Document ---
Author Organization [facility] Address [address] [place] [address] Phone Care Team Providers Care Home Therapy Teacher Name Role Phone Jessica Tyson MD Unavailable Unavailable Allergies, Adverse Reactions, Alerts Substance Reaction Status Criticality No Known Drug Allergies Other Active No I nformation Medications Medication Instructions Dosage Effective Dates (start - stop) Status Comments clonazepam 0.5 mg tablet take 1 tablet by oral route every bedtime - Active carbidopa 25 mg-levodopa 100 mg tablet take 1 tablet by oral route 3 times every day 1.00 tablet - Active losartan 50 mg tablet take 1 tablet by oral route every day 50 MG - Active replaces amlodipine bupropion HCl 75 mg tablet take 1 tablet by oral route 2 times every day 75 MG - Active folic acid 1 mg tablet take 1 tablet by oral route every day 1 MG - Active Vitamin D3 2,000 unit capsule take 1 capsule by oral route every day - Active Vitamin B-12 1,000 mcg tablet take 1 tablet by oral route every day - Active methotrexate sodium 2.5 mg tablet take 8 tablets by oral route every week - Active ranolazine ER 1,000 mg tablet,extended release,12 hr take 1 tablet by oral route every day 1000 MG - Active pramipexole 0.25 mg tablet take 1 tablet by oral route 2-3 hours before bedtime 0.25 MG - Active hydroxychloroquine 200 mg tablet take 2 tablet by oral route every day 400 MG - Active clonazepam 0.5 mg tablet take 1 tablet by oral route every bedtime - No Longer Active Procedures Procedure Date FALL RISK ASSESSMENT DOC'D OFFICE [id number] Visit Complexity Inherent To E/M 2024 BODY MASS INDEX DOCD SYST BP GE 130 - 139MM HG DIAST BP < 80 MM HG FALL RISK ASSESSMENT DOC'D PRES/ABSN URINE INCON ASSESS PPPS, subseq visit BODY MASS INDEX DOCD SYST BP GE 130 - 139MM HG DIAST BP < 80 MM HG Pt inelig neg scrn depres Admin influenza virus vac FLU VACC PRSV FREE INC ANTIG FALL RISK ASSESSMENT DOC'D PRES/ABSN URINE INCON ASSESS Pt inelig neg scrn depres PPPS, subseq visit BODY MASS INDEX DOCD SYST BP LT 130 MM HG DIAST BP < 80 MM HG FALL RISK ASSESSMENT DOC'D PRES/ABSN URINE INCON ASSESS PPPS, subseq visit SYST BP >= 140 MM HG6 IT DIAST BP < 80 MM HG FALL RISK ASSESSMENT DOC'D PRES/ABSN URINE INCON ASSESS C-REACTIVE PROTEIN (CRP) CBC, INC PLATELETS AND DIFFERENTIAL COMPREHEN METABOLIC PANEL CMP RBC SED RATE, AUTOMATED VITAMIN B12 (SERUM) INFLUENZA, RAPID INFLUENZA B, RAPID - OFFICE LAB ROUTINE VENIPUNCTURE Pt inelig neg scrn depres OFFICE [id number] SYST BP LT 130 MM HG DIAST BP < 80 MM HG FALL RISK ASSESSMENT DOC'D PRES/ABSN URINE INCON ASSESS Depression screen annual Clin depression screen doc C-REACTIVE PROTEIN (CRP) CBC, INC PLATELETS AND DIFFERENTIAL COMPREHEN METABOLIC PANEL CMP 0 PSA, TOTAL, SCREENING MEDICARE ONLY RBC SED RATE, AUTOMATED ROUTINE VENIPUNCTURE PPPS, subseq visit SYST BP LT 130 MM HG DIAST BP 80-89 MM HG TELEPHONE E&M SERVICE BY A PHYSICIAN;5-1 0 MINUTES OF MEDICAL DISCUSSION FALL PLAN OF CARE DOC'D URINE INCON PLAN DOC'D PRES/ABSN URINE INCON ASSESS OFFICE [id number] SYST BP GE 130 - 139MM HG DIAST BP < 80 MM HG Advance Directives Directive Yes / No Effective Date File Name No Information Encounters Encounter Description Practice Location Reason(s) For Visit Diagnoses Date Provider Providers Copied on Encounter [employer], [address], [place], [place], [address] , tel: [phone] [facility] No Information 5 Tito Webster. [address] [place] [address], [facility] [address] , [place], [place], [address], . tel:[phone] OFFICE [id number] TAILED [employer], [address], [place], [place], [address] , tel: [phone] [facility] Chronic Conditions (chief complaint) Fecal impactionPrimary hypertensionPMR (polymyalgia rheumatica)Periphe ral polyneuropathyPark inson's disease, unspecified whether dyskinesia present, unspecified whether manifestations fluctuateMalignant melanoma, unspecified site 5 Tito Webster. [address] [place] [address], [address] , [place], [place], [address], . tel:[phone] Referring Provider: Jessica Tyson, [address] [place] [address] [address], [place], [address] . tel:[phone] [employer], [address], [place], [place], [address] , tel: [phone] [facility] No Information 4 Tito Webster. [address] [place] [address], [address], [place], [place], [address], . tel:[phone] [employer], [address], [place], [place], [address] , tel: [phone] [place] preventive (chief complaint)C hronic Conditions (chief complaint) Medicare annual wellness visit, subsequentPMR (polymyalgia rheumatica)Periphe ral polyneuropathyPrim burton hypertensionPeriod ic limb movement disorderBenign prostatic hyperplasia without lower urinary tract symptomsEncounter for immunization 4 Tito Webster. [address] [place] [address], [address], [place], [place], [address], . tel:[phone] Referring Provider: Jessica Tyson, [address] [place] [address] [address], [place], [address] [place] [address] . tel:[phone] [employer], [address], [place], [place], [address] , tel: [phone] [facility] No Information 4 Tito Webster. [address] [place] [address], [address], [place], [place], [address], . tel:[phone] [employer], [address], [place], [place], [address] , tel: [phone] [facility] No Information 4 Caroline Alas. [address] [place] [address], [address], [place], [place], [address], . tel:[phone] [employer], [address], [place], [place], [address] , tel: [phone] [facility] No Information 3 Tito Webster. [address] [place] [address], [address], [place], [place], [address], . tel:[phone] [employer], [address], [place], [place], [address] , [place] tel: [phone] [facility] No Information 3 Caroline Alas. [address] [place] [address], [address], [place], [place], [address], . tel: [phone] [employer], [address], [place], [place], [address] , [place] tel: [phone] [facility] No Information 3 Tito Webster. [address] [place] [address], [address], [place], [place], [address], [place]. tel: [phone] [employer], [address], [place], [place], [address] , tel: [phone] [facility] No Information 3 Caroline Alas. [address] [place] [address], [address], [place], [place], [address], . tel: [phone] [employer], [address], [place], [place], [address] , tel: [phone] [place] preventive (chief complaint)C hronic Conditions (chief complaint)c hronic conditions (chief complaint) Medicare annual wellness visit, subsequentPrimary hypertensionRecurr ent major depressive disorder, in partial remissionPeriodic limb movement disorderMalignant melanoma, unspecified sitePMR (polymyalgia rheumatica) [address] [place] [address], [address], [place], [place], [address], . tel:[phone] Referring Provider: Jessica Tyson, [address] [place] [address] [address], [place], [address] . tel:[phone] [employer], [address], [place], [address] , [place] tel: [phone] [facility] Acute UTI 3 Tito Webster. [address] [place] [address], [address], [place], [place], [address], . tel:[phone] [employer], [address], [place], [place], [address] , tel: [phone] [place] preventive (chief complaint)C hronic Conditions (chief complaint) Medicare annual wellness visit, subsequentPrimary hypertensionBenign prostatic hyperplasia without lower urinary tract symptomsPMR (polymyalgia rheumatica)Periodi c limb movement disorderMalignant melanoma of neckRecurrent major depressive disorder, in partial remission 2 Tito Webster. [address] [place] [address], [address] , [place], [place], [address], . tel:[phone] Referring Provider: Jessica Tyson [address] [place] [address] [address], [place], [address] . tel:[phone] OFFICE VMAHP-GIF-VX [facility], [address], [place], [place], [address] , tel: [phone] [facility] Chronic Conditions (chief complaint)f atigue (chief complaint)c ough (chief complaint) CoughFatigue, unspecified typeEssential hypertensionPMR (polymyalgia rheumatica)Body mass index (BMI) 26.0-26.9, adult 1 Caroline Alas. [address] [place] [address], [address] , [place], [place], [address], . tel:[phone] Referring Provider: Jessica Tyson [address] [place] [address] [address] , [place], [address] . tel:[phone] [employer], [address], [place], [place], [address] , tel: [phone] [facility] Medicare preventive (chief complaint)C hronic Conditions (chief complaint) Medicare annual wellness visit, subsequentEssentia l hypertensionPMR (polymyalgia rheumatica)Primary osteoarthritis involving multiple jointsBenign prostatic hyperplasia without lower urinary tract symptomsRecurrent major depressive disorder, in partial remissionScreening for prostate cancer 0 Tito Webster. [address] [place] [address], [address] , [place], [place], [address], . tel:[phone] Referring Provider: Jessica Tyson [address] [place] [address] [address] , [place], [address] . tel:[phone] TELEPHONE E&M SERVICE BY A PHYSICIAN;5- 10 MINUTES OF MEDICAL DISCUSSION [employer], [address], [place], [place], [address] , tel: [phone] [facility] Telehealth (chief complaint) Acute pain of left shoulder 0 Tito Webster. [address] [place] [address], [address] , [place], [place], [address], . tel:[phone] Referring Provider: Jessica Tyson, [address] [place] [address] [address] , [place], [address] [place] [address] . tel:[phone] OFFICE [id number]-[id number] PANDED [facility], [address], [place], [place], [address] , tel: [phone] [facility] Chronic Conditions (chief complaint) Shortness of breath 9 Tito Webster. [address] [place] [address], [address], [place], [place], [address], . tel:[phone] Referring Provider: Jessica Tyson, [address] [place] [address] [address] , [place], [address] [place] [address] . tel:[phone] [employer], [address], [place], [place], [address] , tel: [phone] [facility] No Information 9 Tito Webster. [address] [place] [address], [address] , [place], [place], [address], . tel:[phone] [employer], [address], [place], [place], [address] , tel: [phone] [facility] No Information 9 Tito Webster. [address] [place] [address], [address] , [place], [place], [address], . tel:[phone] [employer], [address], [place], [place], [address] , tel: [phone] [facility] Body mass index (BMI) 26.0-26.9, adultPeriodic limb movement disorderEssential hypertensionPMR (polymyalgia rheumatica)Chronic gout of multiple sites, unspecified causeMild episode of recurrent major depressive disorderHistory of elevated PSA 9 Caroline Alas. [address] [place] [address], [address] , [place], [place], [address], . tel:[phone] Referring Provider: Jessica Tyson, [address] [place] [address] [address] , [place], [address] . tel:[phone] [employer], [address], [place], [place], [address] , tel: [phone] [facility] Chest heavinessPMR (polymyalgia rheumatica)Benign prostatic hyperplasia without lower urinary tract symptomsLeft inguinal hernia 8 Tito Webster. [address] [place] [address], [address], [place], [place], [address], . tel:[phone] Referring Provider: Jessica Tyson, [address] [place] [address] [address] , [place], [address] . tel:[phone] [employer], [address], [place], [place], [address] , tel: [phone] [facility] Body mass index (BMI) 26.0-26.9, adultEssential hypertensionRecurr ent major depressive disorder, in partial remissionBenign prostatic hyperplasia without lower urinary tract symptomsChronic gout of multiple sites, unspecified causePrimary osteoarthritis involving multiple jointsPeriodic limb movement disorder (PLMD)Sensation of chest pressure 8 Caroline Alas. [address] [place] [address], [address] , [place], [place], [address], . tel:[phone] Referring Provider: Jessica Tyson, [address] [place] [address] [address] , [place], [address] . tel:[phone] [employer], [address], [place], [place], [address] , tel: [phone] [facility] No Information Tito Webster. [address] [place] [address], [address] , [place], [place], [address], . tel:[phone] [employer], [address], [place], [place], [address] , tel: [phone] [facility] Dyspnea on exertionFatigue, unspecified typeChest pressure Rigoberto Rabia. [address] [facility], [address], [place], [place], [address]. tel:[phone] Referring Provider: Jessica Tyson, [address] [place] [address] [address], [place], [address] . tel:[phone] [facility], [address], [place], [place], [address] , tel: [phone] [facility] Essential hypertensionBenign prostatic hyperplasia with lower urinary tract symptoms, unspecified morphologyRecurren t major depressive disorder, in partial remissionMyalgia 7 Tito [address] [place] [address], [address], [place], [place], [address], . tel:[phone] Referring Provider: Jessica Tyson, [address] [place] [address] [address], [place], [address] . tel:[phone] [facility], [address], [place], [place], [address] , tel: [phone] [facility] Acute pain of left shoulderFatigue, unspecified typeEssential hypertensionNeed for vaccination with 13-polyvalent pneumococcal conjugate vaccineBenign prostatic hyperplasia, presence of lower urinary tract symptoms unspecified, unspecified morphology Carolinemaria t Alas. [address] [facility], [address], [place], [place], [address], . tel:[phone] Referring Provider: Jessica Tyson, [address] [place] [address] [address], [place], [address] . tel:[phone] [facility], [address], [place], [place], [address] , tel: [phone] [facility] Essential hypertensionBenign prostatic hyperplasia without lower urinary tract symptoms, unspecified morphologyAnxiety and depressionScreenin g for prostate cancerEncounter for immunization 6 Tito Webster. [address] [place] [address], [address], [place], [place], [address], . tel:[phone] Referring Provider: Jessica Tyson, [address] [place] [address] [address], [place], [address] . tel:[phone] [employer], [address], [place], [place], [address] , tel: [phone] [facility] Essential hypertensionBenign prostatic hyperplasia with lower urinary tract symptoms, prostatic enlargement of unspecified morphologyPrimary insomnia 5 Tito Webster. [address] [place] [address], [address], [place], [place], [address], . tel:[phone] Referring Provider: Jessica Tyson, [address] [place] [address] [address], [place], [address] . tel:[phone] [employer], [address], [place], [place], [address] , tel: [phone] [facility] No Information 5 Tito Webster. [address] [place] [address], [address], [place], [place], [address], . tel:[phone] [employer], [address], [place], [place], [address] , tel: [phone] [facility] HypertensionBPH (benign prostatic hypertrophy)Osteoa rthritisAnxiety and depressionProstate cancer screeningNumbness of footSleep disorder 5 Tito Webster. [address] [place] [address], [address], [place], [place], [address], . tel:[phone] Referring Provider: Jessica Tyson, [address] [place] [address] [address], [place], [address] . tel:[phone] [employer], [address], [place], [place], [address] , tel: [phone] [facility] HypertensionBPH (benign prostatic hypertrophy)Osteoa rthritisInsomnia 4 Tito Webster. [address] [place] [address], [address], [place], [place], [address], . tel:[phone] Referring Provider: Jessica Tyson, [address] [place] [address] [address], [place], [address] . tel:[phone] [employer], [address], [place], [place], [address] , tel: [phone] [facility] No Information 3 Tito Webster. [address] [place] [address], [address], [place], [place], [address], . tel:[phone] [employer], [address], [place], [place], [address] , tel: [phone] [facility] Allergic rhinitis 3 Rigober[address] Caoita. [address] [place] [address], [address], [place], [place], [address]. tel:[phone] Referring Provider: Jessica Tyson, [address] [place] [address] [address], [place], [address] . tel:[phone] [employer], [address], [place], [place], [address] , tel: [phone] [facility] Unspecified essential hypertensionOther and unspecified hyperlipidemiaOste oarthrosis, Unspecified, Unspecified SiteGout, unspecifiedHYPERTR OPHY (BENIGN) OF PROSTATE WITHOUT URINARY OBSTRUCTIONDysthym ic disorder 3 Tito Webster. [address] [place] [address], [address], [place], [place], [address], . tel:[phone] Referring Provider: Jessica Tyson, [address] [place] [address] [address], [place], [address] . tel:[phone] [employer], [address], [place], [place], [address] , tel: [phone] [facility] Unspecified essential hypertensionHYPERT ROPHY (BENIGN) OF PROSTATE WITHOUT URINARY OBSTRUCTIONDysthym ic disorder 2 Tito Webster. [address] [place] [address], [address], [place], [place], [address], . tel:[phone] Referring Provider: Jessica Tyson, [address] [place] [address] [address], [place], [address] . tel:[phone] [employer], [address], [place], [place], [address] , tel: [phone] [facility] Unspecified essential hypertensionOther and unspecified hyperlipidemiaHYPE RTROPHY (BENIGN) OF PROSTATE WITHOUT URINARY OBSTRUCTIONDysthym ic disorder 2 Tito Webster. [address] [place] [address], [address], [place], [place], [address], . tel:[phone] Referring Provider: Jessica Tyson, [address] [place] [address] [address], [place], [address] . tel:[phone] [employer], [address], [place], [place], [address] , tel: [phone] [facility] Unspecified essential hypertensionOther and unspecified hyperlipidemiaOste oarthrosis, Unspecified, Unspecified SiteGout, unspecifiedHYPERTR OPHY (BENIGN) OF PROSTATE WITHOUT URINARY OBSTRUCTIONDysthym ic disorder 2 Tito Webster. [address] [place] [address], [address], [place], [place], [address], . tel:[phone] [employer], [address], [place], [place], [address] , tel: [phone] [facility] HYPERTROPHY (BENIGN) OF PROSTATE WITHOUT URINARY OBSTRUCTIONUnspeci fied essential hypertensionOther and unspecified hyperlipidemiaHYPE RTROPHY (BENIGN) OF PROSTATE WITHOUT URINARY OBSTRUCTIONOsteoar throsis, generalized, involving unspecified siteDepressive disorder, not elsewhere classified 1 Tito Webster. [address] [place] [address], [address], [place], [place], [address], . tel:[phone] Referring Provider: Jessica Tyson, [address] [place] [address] [address] , [place], [address] . tel:[phone] [employer], [address], [place], [place], [address] , tel: [phone] [facility] HYPERTENSION NOSBPH W/O URINARY OBS/LUTSGENERAL OSTEOARTHROSISDEPR ESSIVE DISORDER NEC 0 Tito Webster. [address] [place] [address], [address], [place], [place], [address], . tel:[phone] [employer], [address], [place], [place], [address] , tel: [phone] [facility] GOUT NOS Sid-0 8-201 0 Conversion Doctor. [facility] [place], [address], [place]. [employer], [address], [place], [place], [address] , [place] tel: [phone] [facility] BENIGN HYPERTENSION Armando- 8-201 0 Tito Webster. [address] [place] [address], [address], [place], [place], [address], . tel: [phone] [facility] [employer], [address], [place], [place], [address] , [place] tel:[phone] [facility] SCRN MALIG NEOP-PROSTATE Dec-2 2-200 9 Tito Webster. [address] [place] [address], [address], [place], [place], [address], [place]. tel: [phone] [employer], [address], [place], [place], [address] , [place] tel: [phone] [facility] VACCIN FOR INFLUENZA Sep-2 2-200 9 Tito Webster. [address] [place] [address], [address], [place], [place], [address], [place]. tel: [phone] [employer], [address], [place], [place], [address] , [place] tel:[phone] [facility] SLEEP DISTURBANCE NOS Sep-2 2-200 9 Conversion Doctor. [address] [place] [address], [address], [place]. [employer], [address], [place], [place], [address] , [place] tel: [phone] [facility] ANXIETY STATE NOS Oct-0 1-200 8 Tito Webster. [address] [place] [address], [address], [place], [place], [address], [place]. tel: [phone] [employer], [address], [place], [place], [address] , [place] tel:[phone] [facility] LUMBAGO Oct-0 1-200 8 Conversion Doctor. [address] [place] [address], [address], [place]. [facility] [employer], [address], [place], [place], [address] , [place] tel: [phone] [facility] HYPERLIPIDEMIA NEC/NOS Apr-2 2-200 8 Tito Webster. [address] [facility], [address], [place], [place], [address], [place]. tel:[phone] [facility], [address], [place], [place], [address] , [place] tel: [phone] [facility] BENIGN NEOPLASM LG BOWEL Jun-200 [address] [place] [address], [address], [place], [place], [address], [place]. tel:[phone] Family History Family Member Type Diagnosis Age At Onset Brother Problem (finding) Parkinson's disease Immunizations Vaccine Date Status Comments Fluzone High-Dose Trivalent, preservative free administered Source: New Immuniza tion Record SHINGRIX (Zoster vaccine recombinant, adjuvanted) administered Source: Source Unspecified Pneumococcal conjugate PCV20 administered Source: Source Unspecified SHINGRIX (Zoster vaccine recombinant, adjuvanted) administered Note: [facility] ; Source: Source Unspecified RSV (Beyfortus), monoclonal antibody, seasonal dose, 0.5mL dosage, neonates and children to 24 mos administered Source: Source Unspe cified Moderna Spikevax COVID Vacci ne, mRNALNP, 50 mcg/0.5 mL dose, 12+ years administered Source: Source Unspe cified Fluzone High-Dose, high dose , preservative free administered Note: graham ; Marley ce: Source Unspecified Moderna (Bivalent Booster) COVID Vac, 50mgc/0.5 mL, 18+ years administered Source: Source Unspe cified Fluzone High-Dose, high dose , preservative free administered Source: Source Unspe cified Moderna Vac bivalent, 10 mcg/0.2 mL dosage administered Source: Source Unspe cified Moderna Vac bivalent, 10 mcg/0.2 mL dosage administered Source: Source Unspe cified Fluzone High-Dose, high dose , preservative free administered Source: Source Unspe cified Moderna COVID19 Vaccine, 0.5 mL per dose, 2 doses, administered 28 days apart administered Source: Source Unspe cified Moderna COVID19 Vaccine, 0.5 mL per dose, 2 doses, administered 28 days apart administered Source: Source Unspe cified Flublok, quadrivalent, preservative free, 0.5mL dosage administered Source: Source Unspecified Pneumococcal conjugate PCV 13 administere d Note: Graham ; Source: Other Provider Fluzone High-Dose , high dose, preservative free administered Source: Modesta rce Unspecified influenza, injectable, quadrivalent, (3 years or older) administered Source: New Immuniza tion Record Influenza, seasonal, injecta ble (3 yrs or older) administered Note: Graham ; Marley ce: Other Provider Pneumococcal polysaccharide PPV23 administered Source: New Immuniza tion Record 08166 - Influenza administered Source: So urce Unspecified Payers Payer name Insurance type Covered republican ID Authoriza tion(s) MEDICARE MB [id number] BC ACCESS BL [id number] MEDICARE MB [id number] BCBS ACCESS BL [id number] MEDICARE MB [id number] [employer] INSURANCE CI [id number] MEDICARE MB [id number] CONTINENTAL LIFE INSURANCE CI [id number] Social History Type Description Quantity Date Captured Comments Sex Male Smoking Status No Information Chief Complaint And Reason For Visit No Information Reason For Referral Reason For Referral No Information Plan Of Treatment Date Type Action Status Goal Dietary manageme nt education, guidance, and counseling completed Appointment Nicolas Dye BOOKED Appointment Nicolas Dye BOOKED History Of Present Illness Encounter Date Complaint History Of Prese nt Illness Chronic Conditions *See Chronic Conditions HPI Medicare preventive The patient has not felt depressed and has had interest and pleasure doing things recently. Functional Status: (Functional status has not changed) on 06/28/2024. Cognitive Status: (Cognitive status has not changed) on 06/28/2024. The ''Up and Go'' test took less than 30 seconds andthe patient does not need help with activities of daily living. The patient is at risk for falls. The patient has not fallen in the last year. The fall(s) did not result in injury. Patient's activity level is moderate. Patient exercises 2-3 times/week. The patient has smoke detectors in the home. There is no radon in the patient's home. Patient reports using a seatbelt in vehicles. Patient reports a regular diet. Relevant history is positive for alcohol use. Relevant history is negative for tobacco use. In the past year the patient has had 4 or more drinks in a day 0 time(s). Chronic Conditions *See Chronic Conditions HPI chronic conditions *See Chronic Conditions HPI Chronic Conditions *See Chronic Conditions HPI Medicare preventive A Health Ris k Assessment has been performed and reviewed. The patient has not felt depressed and has had interest and pleasure doing things recently. Functional Status: (Functional status has not changed) on 06/22/2023. SLUMS assessment completed, with a total score of 30, Normal. Cognitive Status: (Cognitive status has not changed) on 06/22/2023. The ''Up and Go'' test took less than 30 seconds andthe patient does not need help with activities of daily living. The patient is at risk for falls. The patient has fallen 2 times in the last year. The fall(s) resulted in injury. Patient's activity level is moderate. Patient exercises daily. The patient has smoke detectors in the home. There is no radon in the patient's home. Patient reports using a seatbelt in vehicles. Patient reports a regular diet. Patient reports recent weight loss of 1.00 lbs, .45 kgs over 14 Months. The patient reports getting calcium from dietary sources. Patient reports not taking Vitamin D. Patient reports taking a multivitamin. Patient does not take folic acid. Relevant history is positive for alcohol use. Relevant history is negative for tobacco use and passive smoke exposure. In the past year the patient has had 4 or more drinks in a day 0 time(s). Screening services were reviewed and updated. Chronic Conditions *See Chronic Conditions HPI Medicare preventive Recently, th e patient has felt down, depressed or hopeless and has felt little interest or pleasure in doing things. Functional Status: (Functional status has not changed) on 04/12/2022. Cognitive Status: (Cognitive status has not changed) on 04/12/2022. The ''Up and Go'' test took less than 30 seconds andthe patient does not need help with activities of daily living. The patient is at risk for falls. The patient has not fallen in the last year. The fall(s) did not result in injury. Patient's activity level is moderate. Patient exercises daily. The patient has smoke detectors in the home. Patient reports using a seatbelt in vehicles. Patient reports a regular diet. Relevant history is positive for alcohol use. Relevant history is negative for tobacco use. Chronic Conditions cough He notes he has had a cough which occasionally was productive initially with yellow sputum. fatigue He states he has been feeling very fatigued recently He states he has had 2 negative COVID tests, last was 2 weeks ago. He states he completed cefdinir and dexamethasone. He states he had low grade temp- last a week ago, feels achy and had some night sweat. Chronic Conditions *See Chronic Conditions HPI Medicare preventive Recently, th e patient has felt down, depressed or hopeless and has felt little interest or pleasure in doing things. Functional Status: (Functional status has not changed) on 05/14/2020. Cognitive Status: (Cognitive status has not changed) on 05/14/2020. The ''Up and Go'' test took less than 30 seconds and the patient does not need help with activities of daily living. The patient is not at risk for falls. The patient has not fallen in the last year. The fall(s) did not result in injury. Patient's activity level is moderate. Patient exercises daily. Patient reports a regular diet. Relevant history is positive for alcohol use. Relevant history is negative for tobacco use and passive smoke exposure. Telehealth Patient having p ain in his left shoulder for about 1.5 weeks, no trauma, aching, radiates from the shoulder blade to the elbow, has tramadol and Aleve which helps. Chronic Conditions *See Chronic Conditions HPI Functional Status Date Functional Assessmen t No Information Instructions Date Instruction Additional Infor amor F/u as planned. 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 Related to Trav hernandez melanoma, unspecified site Continue good foot care. Related to Peripheral polyneuropathy Continue current medications for now. Related to PMR (polymyalgia rheumatica) Change amlodipine to losartan and call results. Related to Fecal impaction Follow BP closely, call if >140/ 90. Related to Primary hypertension Disease process Continue current medications for now. Related to Periodic limb movement disorder Flu shot. Related to Encou nter for immunization Observe. Related to Benig n prostatic hyperplasia without lower urinary tract symptoms Continue current medications for now. Related to Primary hypertension Continue good foot care. Related to Peripheral polyneuropathy Just had labs drawn. Related to PMR (polymyalgia rheumatica) Get appropriate vacc diane. Return 1 year Related to Medicare annual wellness visit, subsequent Disease process Fall Risk Prevention Urinary Incontinence Counseled on weight reduction Counseled on dietary changes He is here today wit h his for a Medicare preventive exam. He postponed from earlier this summer as he had fallen and broken his arm. He notes he is now having therapy for his arm (started this week). He does not smoke, drinks alcohol only socially. He has flu vaccines yearly, has had 2 COVID vaccines and 3 boosters. Plans additional booster soon. He is now considering Shingrix. states he had Prevnar 20- unsure of date. He had 2 falls, one causing shoulder fx. He denies memory change, his assists with ADLs as needed since arm fracture and current medical treatment. He had colonoscopy in March 2022. Related to Medicare annual wellness visit, subsequent Will follow next arnaldo p on plan of care with him. He will check with oncologist for timing of vaccines with treatments. Related to Malignant melanoma, unspecified site He will continue janell n of care per sketcher and advise of any changes. Related to PMR (polymyalgia rheumatica) Rx for mirapex (gene shaji) sent to his pharmacy- 30 day supply- to advise of progress in 2 weeks Related to Periodic limb movement disorder Status: Able to self -manage condition. Goals: Your goal is to manage stress. Barriers: No barriers to goal achievement have been identified. 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 Will review in EPIC at that time. He will try to avoid skipping meals (His notes she had told him the same thing). Related to Primary hypertension Disease process Fall Risk Prevention Urinary Incontinence Counseled on weight reduction Counseled on dietary changes Continue current med ications for now. Goals: Your goal is to manage stress. Barriers: No barriers to goal achievement have been identified. 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 Related to PMR (polymyalgia rheumatica) Continue current medications for now. Related to Periodic limb movement disorder Continue current medications for now. Related to Primary hypertension Continue current medications for now. Related to Benign prostatic hyperplasia without lower urinary tract symptoms Get appropriate vaccines. Relate d to Medicare annual wellness visit, subsequent Disease process Urinary Incontinence Fall Risk Prevention Counseled on dietary changes Counseled on weight reduction He states he has bee n feeling very fatigued recently He states he has had 2 negative COVID tests, last was 2 weeks ago. He states he completed cefdinir and dexamethasone. He states he had low grade temp- last a week ago, feels achy and had some night sweat. Related to Fatigue, unspecified type He notes he has had a cough which occasionally was productive initially with yellow sputum. Related to Cough Continue present janell n of care with sketcher. Related to PMR (polym [id number]|2025-03-03 10:33:00|2025-03-03 10:33:00|XMS_ITS|BKG DAYONNYON|External Medical Summaries|[id number]|" CONTINUITY OF CARE DOCUMENT Created on: March 03, 2025 Nicolas Dye : 1945 Sex: Male Author Name erin khan Address Unknown Organization [facility] Address [address] [place] [address] Phone [phone] Care Team Providers Care Home Therapy Teacher Name Role Phone Jade Long MD Unavailable JESSICA TYSON MD Unavailable [phone] JESSICA TYSON MD Unavailable PROBLEMS Condition Status Date Provider Notes Fibromyalgia active Jade Long MD Dyspnea on exertion active Jade Thompson Chest pain active Jade Long MD HTN essential active Jade Long MD Restless leg syndrome active Jade Long MD BPH active Jade Long MD Fatigue & malaise active Jade Long MD Elevated c-reactive protein active Jade Long MD ENCOUNTERS Date Type Provider Location Encounter Diag nosis - In-person encounter Office Visit Jade Long MD [facility] Elevated c-reactive protein - In-person encounter Office Visit Jade Long MD [facility] - In-person encounter Office Visit Jade Long MD [facility] - In-person encounter Office Visit Jade Long MD [facility] - In-person encounter Office Visit Jade Long MD [facility] - In-person encounter Office Visit Jade Long MD [facility] FibromyalgiaFatigue & malaise - In-person encounter Office Visit Jade Long MD [facility] - In-person encounter Office Visit Jade Long MD [facility] FibromyalgiaDyspnea on exertionChest painHTN essentialRestless leg syndromeBPH VITAL SIGNS Date Observation Value Provider Body Mass Index (Ratio) 27.51 kg/m2 Danny logan Echavarria pulse rate 89 /min Lulu Block blood pressure, diastolic 62 mm[Hg] [facility] blood pressure, systolic 128 mm[Hg] Sherrie luz elenany Block oxygen saturation, oximetry 98 % Lulu Block weight E&M 226 [lb_av] Lulu Block respiratory rate E&M 16 /min [facility] Block height E&M 76 [in_i] [facility] Body Mass Index (Ratio) 27.63 kg/m2 Danny n [place] pulse rate 88 /min Norma Templeton oxygen saturation, oximetry 97 % Norma Templeton blood pressure, diastolic 70 mm[Hg] Kr isty [employer] blood pressure, systolic 150 mm[Hg] Raul Garcíaby respiratory rate E&M 17 /min Norma Garcíaby blood pressure, cuff size regular Sai Garcíaby weight E&M 227 [lb_av] Norma Garcíaby height E&M 76 [in_i] Norma García Body Mass Index (Ratio) 27.26 kg/m2 Homa Long MD blood pressure, diastolic 70 mm[Hg] [facility] blood pressure, systolic 140 mm[Hg] Sherrie ttany Block oxygen saturation, oximetry 99 % [facility] respiratory rate E&M 16 /min [facility] Block pulse rate 71 /min [facility] weight E&M 224 [lb_av] [facility] Block height E&M 76 [in_i] [facility] Body Mass Index (Ratio) 26.90 kg/m2 Homa Long MD oxygen saturation, oximetry 98 % [facility], diastolic 64 mm[Hg] Ch astity Tito blood pressure, systolic 132 mm[Hg] Vanessa stity Tito respiratory rate E&M 16 /min Chastit y Tito pulse rate 84 /min Chastity Tito weight E&M 221 [lb_av] Chastity Tito height E&M 76 [in_i] Chastity Tito Body Mass Index (Ratio) 26.65 kg/m2 Homa Long MD blood pressure, diastolic 58 mm[Hg] Ki lleen Parker blood pressure, systolic 122 mm[Hg] Kil nic Parker oxygen saturation, oximetry 99 % Valentin Parker respiratory rate E&M 16 /min Valentin Parker pulse rate 75 /min Valentin Parker weight E&M 219 [lb_av] Valentin Parker height E&M 76 [in_i] Valentin [place] Body Mass Index (Ratio) 26.29 kg/m2 Homa Long MD blood pressure, diastolic 82 mm[Hg] Odilon Patel blood pressure, systolic 130 mm[Hg] Seferino barrera [facility] oxygen saturation, oximetry 98 % Concha [facility] respiratory rate E&M 15 /min Concha [facility] pulse rate 84 /min Concha [facility] weight E&M 216 [lb_av] Concha [facility] height E&M 76 [in_i] Concha [facility] Body Mass Index (Ratio) 26.65 kg/m2 Homa Long MD blood pressure, diastolic 56 mm[Hg] Tommy Perez blood pressure, systolic 110 mm[Hg] Ana Perez oxygen saturation, oximetry 98 % Renea Perez respiratory rate E&M 17 /min Renea Perez pulse rate 91 /min Renea Perez weight E&M 219 [lb_av] Renea Perez height E&M 76 [in_i] Renea Perez Body Mass Index (Ratio) 26.34 kg/m2 Homa Long MD blood pressure, diastolic, left arm 72 mm [Hg] Sury Jackson blood pressure, systolic, left arm 128 mm [Hg] Sury Jackson blood pressure, diastolic, right arm 78 m m[Hg] Sury Jackson blood pressure, systolic, right arm 132 m m[Hg] Sury Jackson blood pressure, cuff size regular Te zandra Jackson blood pressure, diastolic 72 mm[Hg] Te zandra Jackson blood pressure, systolic 128 mm[Hg] Antonio Jackson oxygen saturation, oximetry 98 % Sury Jackson respiratory rate E&M 18 /min Sury Jackson pulse rate 101 /min Sury Jackson blood pressure, resting Yes Fritz Jackson weight E&M 216.4 [lb_av] Sury Ortega y height E&M 76 [in_i] Sury Jackson ALLERGIES No Known Drug Allergies RESULTS Date Observation Value Provider Reference Range Interpretation Location thyroid stimulating hormone, serum 0.629 ??IU/ML [facility] 0.270 - 4.200 HISTORY OF MEDICATION USE Medication Status Instructions Dates Provider Indications Com ments PREDNISONE 1 MG ORAL TABLET active 1 tab daily 1 Lulu Block VENTOLIN HFA 108 (90 BASE) MCG/ACT INHALATION AEROSOL SOLUTION active 2 puffs by mouth every 4-6 hrs as needed 3 Gurmeet Beaulieu RN ANORO ELLIPTA 62.5-25 MCG/INH INHALATION AEROSOL POWDER BREATH ACTIVATED active as directed 3 Jade Long MD PROAIR HFA 108 (90 BASE) MCG/ACT INHALATION AEROSOL SOLUTION completed 2 puffs every 4-6 hours as needed 2 - 3 Jade Long MD MAGNESIUM OXIDE 400 MG ORAL TABLET active ONE TAB DAILY 5 Jade Long MD PREDNISONE 5 MG (21) ORAL TABLET THERAPY PACK completed 1 tab 1x daily 0 - 3 Jade Long MD CLONAZEPAM 1 MG ORAL TABLET completed 1/2 tab 1x daily 0 - 3 Normamariann Templeton ALIVE ENERGY 50+ ORAL TABLET active one tab daily 1 Vanessastcathleen Perdomoue OSTEO BI-FLEX ADV TRIPLE ST ORAL TABLET active one tab twice daily 1 Vanessastcathleen Francsi [facility] VITAMIN B12 1000 MCG ORAL TABLET active 1 tab daily 5 Valentin Fraseram D3 SUPER STRENGTH 2000 UNIT ORAL CAPSULE active 1 tab 1x daily 5 Lulu Edwards CETIRIZINE HCL 10 MG ORAL TABLET active take one tab po once daily Concha Patel PREDNISONE 5 MG ORAL TABLET completed take 7.5mg tab daily 5 - 5 Lulu Edwards RANEXA 1000 MG ORAL TABLET EXTENDED RELEASE 12 HOUR active one tab once dailyID # [id number] 3882/07/1 4 Katherine Villa NITROSTAT 0.4 MG SUBLINGUAL TABLET SUBLINGUAL active One tab. under tongue as needed. May repeat twice in 10 minutes. 0 Jade Long MD CALCIUM CITRATE-VITAMIN D3 1000-400 ORAL LIQUID completed One tab daily 0 - 2 Concha Patel TERAZOSIN HCL 10 MG ORAL CAPSULE active One capsule daily 0 Sury Jackson FINASTERIDE 5 MG ORAL TABLET active One tab daily 0 Sury Jackson CLONAZEPAM 1 MG ORAL TABLET DISINTEGRATING active One tab daily 0 Sury Jackson BUPROPION HCL 75 MG ORAL TABLET active 2 tabs 1x daily 0 Lulu Edwards AMLODIPINE BESYLATE 5 MG ORAL TABLET active One tab daily 0 Sury Jackson SOCIAL HISTORY Date Observation Value Provider social history E&M S moking History: Kelsey cao is a former smoker. Jade Long MD social history reviewed E&M revi ewed - no changes required Jade Long MD cigarette use yes Lulu Edwards smoking status Former smoker Lulu Saman feldman social history E&M S moking History: Kelsey cao is a former smoker. Jade Long MD social history reviewed E&M revi ewed - no changes required Jade Long MD cigarette use yes Norma Templeton smoking status Former smoker Norma Jareth social history E&M S moking History: Kelsey cao is a former smoker. Jade Long MD social history reviewed E&M revi ewed - no changes required Jade Long MD cigarette use yes Lulu Edwards smoking status Former smoker Lulu feldman social history E&M S moking History: Kelsey cao is a former smoker. Jade Long MD social history reviewed E&M revi ewed - no changes required Jade Long MD cigarette use yes Annie Tito smoking status Former smoker Annie Hog ue social history reviewed E&M revi ewed - no changes required Jade Long MD social history reviewed E&M revi ewed - no changes required Jade Long MD social history reviewed E&M revi ewed - no changes required Jade Long MD smoking status Former smoker Renea Perez social history reviewed E&M revi ewed - no changes required Jade Long MD cigarette use yes Sury cano smoking status Former smoker Sury live number of grandchildren Jade Jackson FAMILY HISTORY Family Member Condition Mother Negative FH of Coron [place] Artery Disease INSURANCE PROVIDERS Payer name Policy type / Coverage type [place] red republican ID [facility] [id number] [place] PART B Medicare [id number] ADVANCE DIRECTIVES Name Date 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 Dino Echavarria Cardiology:Unchanged . Likely related to fibromyalgia. He continues to follow rheumatology. Dino ashley Cardiology:Recent CR P (6.3) and sed rate (31) elevated. He coninues on Prednisone Dino ashley Cardiology:Continues on low dose Prednisone. Follows rheumatology. Dino Echavarria Cardiology:Blood pressure contro l is satisfactory. Dino Echavarria Cardiology:No recurr ence. He continues on Ranexa. No nitro since last seen. Dino Cardiology :Improved. Off Predni sone. Dino Cardiology :Blood pr essure elevated. Advised to reduce sodium intake and weight reduction. Advised to call our office if blood pressure consistently above 140 systolic. Dino Cardiology :Imporved with bronchodilators which he continues. Dino Cardiology :Much imp roved on Anoro which he was advised to continue. He has decreased Ranexa to 1000mg once daily which he continues. He has not used nitro since last seen. Dino Cardiology:Due to see carolina Long MD Cardiology:Continues to be symptomatic with chest pain. I discussed ECP treatment vs repeat cardiac cath vs medical management with the patient and his . He would like to try ECP. This patient has angina (defined as chest pain, chest discomfort, or pain in arms, neck, jaw, shoulder, or back, and may include symptoms of shortness of breath, fatigue, dizziness, nausea, or diaphoresis) of [place] Cardiovascular Society Class III (defined as symptoms with everyday living activities, i.e. moderate limitation) or [place] Cardiovascular Society Class IV (defined as inability to perform any activity without angina or angina at rest, i.e. severe limitation). This patient?s angina is disabling and in my opinion is not readily amenable to surgical intervention by PTCA or cardiac bypass because the patient's coronary anatomy is not readily amenable to such procedures. Jade Long MD Cardiology:Blood pre ssure control is satisfactory. Jade Long MD Cardiology:Will arrange PFTs. Ifeanyi Long MD Cardiology:Symptomat ic with fatigue. The etiolgoy is unclear but could be related to fibromyalgia. He is due to see Dr. Santos next week. Jade Long MD Cardiology Jade Thompson Cardiology:Continues on Prednisone which he will try to taper off of in the future. Jade Long MD Cardiology:Blood pressure contro l is stable. Jade Long MD Cardiology:Likely co ronary vasospasm. Symptoms have much improved with Ranexa but he still needs sublingual nitro intermittently for pain relief. Jade Long MD Cardiology:Sleep loulou dy and thyroid functions were normal. The patient has begun taking Vitamin B12, Vitamin D, and calcium supplements. Prednisone recently reduced; patient seems to be tolerating well. Jade Long MD Cardiology:Blood pre ssure control is satisfactory. Jade Long MD Cardiology:Much impr darleen with increased dosage of Ranexa. Jade Long MD Cardiology:Still mil dly symptomatic with occasional mild chest pressure. Recent cardiac cath was normal and the patient is on maximum dosage of Ranexa. He is advised to take nitroglycerin under his tongue for any chest pressure that he feels is unusual. Patient reassured. Jade Long MD Cardiology:On terazosin. Last PS A was normal. Jade Long MD Cardiology:Blood pressure contro l is satisfactory. Jade Long MD Cardiology:On clonazepam. Preet Long MD Cardiology:Likely th at some of his symptomatology may be related to fibromyalgia. He has been on steroids and may benefit from another rheumatology evaluation. This has been discussed. We will also arrange home sleep study and check thyroid function. Jade Long MD Cardiology:Continues to be symptomatic with increased tiredness and shortness of breath. Chest pain has improved with Ranexa, but he still does not feel back to his normal self. He responded well to lower dose of Ranexa, and so will increase to maximum Ranexa dose. Jade Long MD Cardiology Jade Thompson Cardiology:Blood pre ssure control is satisfactory. Continues on current medications. Jade Long MD Cardiology:Unexplain ed symptoms. L/R heart cath arranged. Jade Long MD Cardiology:Symptoms persist in spite of normal stress test. As he is symptomatic, we will arrange for cardiac catheterization. He has been started on Ranexa and has been advised to take NTG if needed. T he risks and benefits of the procedure, including but not limited the risk of heart attack, , stroke, bleeding, kidney failure, and loss of limb as well as the alternative of continued medical therapy, stress testing or bypass surgery were discussed with the patient and any present family members and the patient wishes to proceed with cardiac cath and stenting. The patient and family had opportunity to discuss this with us. Written material including informed consent was given out. Jade Long MD Cardiology:Continues previous me dications as before. Jade Long MD Cardiology:New onset of chest pressure which is effort relateed and associated with SOB. This is likely effort-related angina, and even though EKG shows no abnormalities, he needs further work up. An echo and stress test have been ordered and he has been given sublingual nitro to use as needed and told to avoid exertion Jade Long MD Cardiology:Continues previous me dications. Jade Long MD Cardiology:Continues amlodipine as before. Controlled. Jade Long MD Date Name DLCO - 69561 FRC - 64314 FVC - 45319 T3, TOTAL TSH, 3RD GENERATION W/REFLEX TO FT4 Sleep Study Home Cardiac Cath - L/R- [facility] Complete Echo STR - Routine HISTORY OF PROCEDURES Procedure Date Procedure Name Provider Procedure Notes S tatus EKG Jade Long MD complet ed EKG Jade Long MD complet ed FVC / MVV with bronchodilator - 44525 Jade Long MD completed BLOOD COUNT HEMOGLOBIN Jade Long MD completed FRC - 92797 Jade Long MD comple rhianna SpO2 w/o 6min walk/titration Jade Long MD completed DLCO - 17197 Jade Long MD compl eted EKG Jade Long MD complet ed EKG Jade Long MD complet ed SNOMED-CT: 370044870156487 Current Medications Documented Jade Long MD completed EKG Jade Long MD complet ed SNOMED-CT: 570605347393716 Current Medications Documented Jade Long MD completed EKG Jade Long MD complet ed SNOMED-CT: 070019088270685 Current Medications Documented Jade Long MD completed Stress EKG Hugo Reza MD completed Cardiolite, 2 units Hugo Reza MD completed SPECT Images Hugo Reza MD completed SNOMED-CT: 26532996 Physical Exam, Performed: Pulse Exam of Foot Jade Long MD completed EKG Jade Long MD complet ed SNOMED-CT: [id number] Current Medications Documented Jade Long MD completed "
--- OUTSIDE RECORDS SUMMARY | 2025-03-03 10:33 | XMS_ITS | Encounter Summary ---
Author Organization [facility] Address [address] [place] [address] Care Team Providers Care Process Stripper Name Role Phone Darin Francis MD Primary Care Provider [phone] Encounter Details Date Type Department Care Team (Late st Contact Info) Description 04/12/2024 Lab Requisition [facility] - DermPath Lab [address] [facility], [facility] [place] [address] Silver Rain MD [address] [place] [address] Social History Tobacco Use Types Packs/Day Years [...] Description 04/08/2025 2:00 PM CDT Office Visit [facility] Physician [facility] - General Surgery [address] [place] [id number] Jourdan Langford MD [address] [facility] [address] [place] [address] documented as of this encounter Procedures Procedure Name Priority Date/Time Associated Diagnosis Comments DERMATOPATHOLOGY Routine 04/10/2024 12:0 0 AM CDT documented in this encounter Results * DERMATOPATHOLOGY (04/10/2024 12:00 AM CDT) Case Report Dermatopathology Report Case: [id number] Authorizing Provider: Silver Rain MD Collected: 04/10/2024 12:00 AM Ordering Location: [facility] - Received: 04/12/2024 10:41 AM DermPath Lab Pathologist: Keisha Lima MD Specimen: Skin, lower mid back 1:48 PM CDT DERMATOPATHOLOGY LABORATORY Final Diagnosis Specimen A. SKIN, lower mid back: DERMAL SCAR (L90.5) HEALING SKIN CHANGES (L90.5) 4 1:48 PM CDT DERMATOPATHOLOGY LABORATORY Clinical History BCC bx site 1:48 PM CDT DERMATOPATHOLOGY LABORATORY Gross Description Specimen A: Received is one formalin filled container labeled with the patient's name and designated lower mid back. The specimen consists of a curettage and desiccation biopsy measuring 12x9x2;6x5x1 mm. Jar 0. 1:48 PM CDT DERMATOPATHOLOGY LABORATORY Microscopic Description Specimen A. SKIN, lower mid back: There is epidermal hyperplasia beneath which there are vascular proliferation, fibroblasts, and an edematous stroma. There are also collagen bundles oriented parallel to the skin surface with elongated blood vessels, some of which are oriented perpendicular to the skin surface. 1:48 PM CDT DERMATOPATHOLOGY LABORATORY Disclaimer An external and internal positive and negative controls are appropriate for the histochemical, immunohistochemical and immunofluorescence stain(s) in this case (if any), except where stated explicitly. The performance characteristics of the stain(s) cited in this report were developed and its performance characteristic determined by the Dermatopathology Laboratory at [facility], directed by Dr. Guanaco Lainez. These tests need not be, and therefore are not, approved by the [place] Food and Drug Administration. The tests are used for clinical purposes. Billing Codes Specimen Charges Stain Charges 99304 1 1:48 PM CDT DERMATOPATHOLOGY LABORATORY Embedded Images 1:48 PM CDT DERMATOPATHOLOGY LABORATORY Pathology/Cytolog y TISSUE SPECIMEN FROM SKIN / Unknown 04/10/2024 04/12/2024 10:41 AM CDT us Silver Rain MD LAB - PATHOLOGY/CYTOLOGY ORDERAB LES Final Result DERMATOPATHOLOGY LABORATORY [facility] - Department of Dermatology [facility] Medicine [address] [place] [address], 3[address] Floor [place], [place] [id number] [place] [address] documented in this encounter Visit Diagnoses Not on filedocumented in this encounter Care Teams Process Stripper Relationship Specialty [place] [address] [facility] [address] [place] [address] PCP - General Internal Medicine 02/12/22 documented as of this encounter
[2025-03-03 10:36] VITALS: BP 184/79; PULSE 67; RESP 20; TEMP 37; O2SAT 100
[2025-03-03 10:52] LABS: EDSTREPNEGPOS1 Negative (Negative)
--- NOTE | 2025-03-03 10:54 | ED_ITS ---
HPI - General Adult General Chief complaint: Upper Respiratory Infection Stated complaint: cough, sore throat Source: patient and family Mode of arrival: ambulatory Limitations: no limitations History of Present Illness HPI narrative: Patient presents for evaluation of sick symptoms for last 2 days. He has an underlying history of hypertension, polymyalgia rheumatica, melanoma for which he is currently in remission, Parkinson's and anxiety. He is currently on both methotrexate and hydroxychloroquine. He reports rhinorrhea, cough, SOB and sore throat. He had diarrhea last night. No fever, chills, nausea or vomiting. His daughter and grandchild were both recently sick. he took Coricidin and NyQuil for symptoms. Related Data Home Medications Medication Instructions Recorded Confirmed Last Taken Type amlodipine 5 mg tablet 5 mg PO QAM 01/18/23 03/13/24 03/22/24 History bupropion HCl 75 mg tablet 75 mg PO BID 01/18/23 03/13/24 03/22/24 History clonazepam 0.5 mg tablet 0.5 mg PO HS 01/18/23 03/13/24 03/21/24 History folic acid 1 mg tablet 1 mg PO DAILY 01/18/23 03/22/24 3 Days Ago History ~03/19/24 hydroxychloroquine 200 mg tablet 200 mg PO BID 01/18/23 03/22/24 03/21/24 History methotrexate sodium 2.5 mg tablet 20 mg PO WEEKLY 10/03/23 03/13/24 03/19/24 History ranolazine 1,000 mg 1,000 mg PO QAM 10/03/23 03/13/24 03/22/24 History tablet,extended release,12 hr acetaminophen 500 mg capsule 1,000 mg PO QID PRN Pain 03/13/24 03/13/24 03/21/24 History calcium 600 mg (as 1 tablet PO DAILY 03/13/24 03/13/24 3 Days Ago History carbonate)-vitamin D3 5 mcg (200 ~03/19/24 unit) tablet cholecalciferol (vitamin D3) 25 25 mcg PO DAILY 03/13/24 03/13/24 3 Days Ago History mcg (1,000 unit) tablet ~03/19/24 ibuprofen 200 mg capsule 400 mg PO Q6H PRN Pain 03/13/24 03/13/24 03/19/24 History multivitamin 1 tablet PO DAILY 03/13/24 03/22/24 3 Days Ago History ~03/19/24 pramipexole 0.25 mg tablet 0.25 mg PO HS 03/13/24 03/13/24 03/21/24 History prednisone 1 mg tablet 4 mg PO DAILY 03/13/24 03/13/24 03/22/24 History gabapentin 300 mg capsule mg 12/13/24 Unknown History carbidopa 25 mg-levodopa 100 mg tablet 03/03/25 Unknown History tablet Allergies Allergy/AdvReac Type Severity Reaction Status Date / Time No Known Allergies Allergy Verified 12/13/24 11:57 Review of Systems Review of Systems: CONSTITUTIONAL: Denies fever, chills, or sweats. EYES: Denies visual changes, redness, or discharge. ENT: Reports rhinorrhea and sore throat. Denies congestion or otalgia. CARDIOVASCULAR: Denies chest pain, palpitations, or edema. RESPIRATORY: Reports cough and SOB GASTROINTESTINAL: Reports diarrhea. Denies abdominal pain, nausea, and vomiting GENITOURINARY: Denies dysuria or hematuria. SKIN: Denies rash or itching. MUSCULOSKELETAL: Denies back pain, joint pain, or myalgia. NEUROLOGIC: Denies headache, numbness, dizziness, or weakness. PSYCHIATRIC: Denies anxiety or depression. [facility] Past Medical History Medical History Polymyalgia rheumatica Tuberculosis Rheumatoid arthritis Malignant melanoma, stage IV M1a Hypertension Restless leg syndrome BPH (benign prostatic hyperplasia) Depression Anxiety Surgical History Surgical History History of lung biopsy H/O lateral meniscus repair of right knee H/O lateral meniscus repair of left knee History of appendectomy Family History Family History Mother Family history non-contributory Social History Social History Smoking packs per day: 1.5 Smoking cigarettes per day: 30.0 Years smoked: 24 Smoking pack-years: 36.00 Smoking status: Former smoker Additional smoking assessment comments: Quit over 30 years ago Alcohol intake: current Drinks per week: 3 Alcohol use details: rare social Substance use type: does not use Do You Feel Safe in your Home?: Yes Lack of Transportation: No Lack of Food: Never True Current Housing: I Have Housing Concerned About Future Housing: No Difficulty Paying Gas/Electric Bills: No Difficulty Paying for Meds: No Currently Unemployed: No Education: High School Diploma/GED Difficulty w/ Childcare or Family Care: No Living arrangements: with family Additional living arrangements comments: Gender identity (if verbalized by the patient): Male Spiritual care concerns: No Exam Narrative: GENERAL: Well-appearing, well-nourished, and in no acute distress. HEAD: Normocephalic, atraumatic. EYES: PERRLA and EOMI. ENT: Nares clear, no rhinorrhea or epistaxis. Mucous membranes moist. Oropharynx without tonsillar hypertrophy exudate or other lesions. Bilateral TMs pearly barrera nonbulging NECK: Supple. No adenopathy or masses. No carotid bruits or JVD CHEST: Clear to auscultation. No respiratory distress. No wheezes rales or r honchi HEART: Regular rate and rhythm. No murmur heard. Normal peripheral pulses. ABDOMEN: Soft, nontender, nondistended, normal active bowel sounds. EXTREMITIES: Normal range of motion. No edema. SKIN: Warm, dry, no rash. NEURO: No focal deficits. Alert and oriented x3. PSYCH: Normal mood and affect. Course Course Emergency Course: This is a 79-year-old male who presented for evaluation of sick symptoms. He had COVID test at home which was negative yesterday. He was strep and infl uenza negative. Chest x-ray normal. He has no adventitious lung sounds warranting steroids. Exam is consistent viral URI. Recommend increased fluid intake and OTC meds as needed for symptom control. Follow up with PCP tomorrow. Go to the ER for worsening symptoms. Pt in agreement with plan of care. Level of Care: Express Care Visit Vital Signs Vital signs: Vital Signs Temperature 37.0 C 03/03/25 10:36 Pulse Rate 67 03/03/25 10:36 Respiratory Rate 20 03/03/25 10:36 Blood Pressure 184/79 H 03/03/25 10:36 Pulse Oximetry 100 03/03/25 10:36 Oxygen Delivery Room Air 03/03/25 10:36 Temperature 37.0 C 03/03/25 10:36 Pulse Rate 03/03/25 10:36 Respiratory Rate 20 03/03/25 10:36 Blood Pressure 184/79 H 03/03/25 10:36 Pulse Oximetry 03/03/25 10:36 Oxygen Delivery Room Air 03/03/25 10:36 Medical Decision Making Vital Signs Vital Signs: Vital Signs Temperature 37.0 C 03/03/25 10:36 Pulse Rate 03/03/25 10:36 Respiratory Rate 20 03/03/25 10:36 Blood Pressure 184/79 H 03/03/25 10:36 Pulse Oximetry 03/03/25 10:36 Oxygen Delivery Room Air 03/03/25 10:36 Temperature 37.0 C 03/03/25 10:36 Pulse Rate 03/03/25 10:36 Respiratory Rate 03/03/25 10:36 Blood Pressure 184/79 H 03/03/25 10:36 Pulse Oximetry 03/03/25 10:36 Oxygen Delivery Room Air 03/03/25 10:36 Lab Data Labs: Lab Results 03/03/25 Range/Units 10:46 POC Influenza A Ag Negative (Negative) POC Influenza B Ag Negative (Negative) POC Grp A Strep Screen Negative (Negative) Imaging Data Radiologist's impression: Clinical Indication: Cough PA and lateral views of the chest: Comparison: 06/10/2019 Findings: The lungs are clear, without evidence of focal consolidation or pleural effusion. Cardiomediastinal silhouette is within normal limits. Bones and soft tissues are unremarkable. Impression: Normal chest. Discharge Plan Discharge Clinical Impression: Upper respiratory infection, viral Patient Disposition: Home Condition: Stable Instructions: Antibiotic Form, Upper Respiratory Infection (ED), Viral Syndrome (ED) Additional Instructions: YOU MAY CONTINUE TO TAKE OVER THE COUNTER MEDICATIONS FOR YOUR SYMPTOMS PLEASE FOLLOW UP WITH YOUR PRIMARY CARE PROVIDER THIS WEEK Patient Language: Luxembourgish Prescriptions: No Action gabapentin 300 mg capsule clonazepam 0.5 mg tablet 0.5 mg PO HS amlodipine 5 mg tablet 5 mg PO QAM bupropion HCl 75 mg tablet 75 mg PO BID folic acid 1 mg tablet 1 mg PO DAILY hydroxychloroquine 200 mg tablet 200 mg PO BID methotrexate sodium 2.5 mg tablet 20 mg PO WEEKLY Rx Instructions: MONDAYS ranolazine 1,000 mg tablet extended release 12 hr 1,000 mg PO QAM carbidopa-levodopa 25-100 mg tablet prednisone 1 mg tablet 4 mg PO DAILY pramipexole 0.25 mg tablet 0.25 mg PO HS ibuprofen 200 mg Capsule 400 mg PO Q6H PRN (Reason: Pain) acetaminophen 500 mg Capsule 1,000 mg PO QID PRN (Reason: Pain) multivitamin Tablet 1 tablet PO DAILY calcium carbonate-vitamin D3 600 mg-5 mcg (200 unit) Tablet 1 tablet PO DAILY cholecalciferol (vitamin D3) 25 mcg (1,000 unit) Tablet 25 mcg PO DAILY Follow-up/Referrals: Tito,Darin Obrien MD [Primary Care Provider] - Time of Disposition: 11:17
[2025-03-03 11:09] LABS: EDINFLUASCREEN Negative (Negative); EDINFLUBSCREEN Negative (Negative)
== END 2025-03-03 11:24 | disposition home or self-care (01) ==
PROVIDERS: Emergency Provider Nurse Practitioner; PCP Internal Medicine
DX: J06.9 Acute upper respiratory infection, unspecified (principal); Z87.891 Personal history of nicotine dependence; I10 Essential (primary) hypertension; G20.A1 Parkinson's disease without dyskinesia, without mention of fluctuations; M06.9 Rheumatoid arthritis, unspecified; G25.81 Restless legs syndrome; N40.0 Benign prostatic hyperplasia without lower urinary tract symptoms; F41.9 Anxiety disorder, unspecified; F32.A Depression, unspecified; M35.3 Polymyalgia rheumatica; Z85.820 Personal history of malignant melanoma of skin
CPT/HCPCS: 71046; 87081; 87804; 87880; 99213; G0463